=== PATIENT | male | born 1955 | race Hispanic/Latino ===

== ENCOUNTER 2017-07-17 18:33 | Inpatient (IN) | payer MEDICARE, OTHER ==
[2017-07-17 18:35] VITALS: PULSE 135
[2017-07-17 18:39] VITALS: BMI 24.9
--- NOTE | 2017-07-17 19:07 | ED PDOC ---
Arrival/HPI - General Chief Complaint: Weakness/Neurological Deficit Time Seen by Provider: 07/17/17 18:36 Historian: Family - History of Present Illness Narrative History of Present Illness (Text): 07/17/17 19:00 62 year old male, whose past medical history includes neuropathy, 3 strokes, is brought in by EMS and presents to the emergency department complaining of weakness. Per family, patient is experiencing difficulty ambulating for 2 days and has been "shaking a lot" as per pt family, pt had previous mrsa bacteremia and presented similarly in past. Patient has no complaints of pain. Also, patient has wound to left leg and had a cast placed on it 3 days ago. Baseline expressive aphasia No PMD 07/17/17 22:18 Symptom Onset: Gradual Symptom Course: Unchanged Past Medical History - Provider Review Nursing Documentation Reviewed: Yes - Infectious Disease Hx of Infectious Diseases: None - Tetanus Immunization Tetanus Immunization: Unknown - Cardiac Hx Cardiac Disorders: Yes Hx Hypertension: Yes Other/Comment: endocarditis, pig valve, open heart sx - Pulmonary Hx Respiratory Disorders: No Hx Pneumonia: Yes - Neurological Hx Neurological Disorder: Yes HX Cerebrovascular Accident: Yes (x3) - HEENT Hx HEENT Disorder: No - Renal Hx Renal Disorder: No - Endocrine/Metabolic Hx Endocrine Disorders: Yes Hx Diabetes Mellitus Type 2: Yes - Hematological/Oncological Hx Blood Disorders: No Hx Blood Transfusions: No Hx Blood Transfusion Reaction: No - Integumentary Hx Dermatological Disorder: No Other/Comment: diabetic foot infections - Musculoskeletal/Rheumatological Hx Musculoskeletal Disorders: Yes Hx Arthritis: Yes - Gastrointestinal Hx Gastrointestinal Disorders: Yes Hx Gastroesophageal Reflux: Yes - Genitourinary/Gynecological Hx Genitourinary Disorders: No Hx Reproductive Disorders: No - Psychiatric Hx Psychophysiologic Disorder: No Hx Emotional Abuse: No Hx Physical Abuse: No Hx Substance Use: No - Surgical History Hx Open Heart Surgery: Yes Hx Valve Replacement: Yes (pig valve) - Anesthesia Hx Anesthesia: Yes Hx Anesthesia Reactions: No Hx Malignant Hyperthermia: No - Suicidal Assessment Feels Threatened In Home Enviroment: No Family/Social History - Physician Review Nursing Documentation Reviewed: Yes Family/Social History: No Known Family HX Smoking Status: Former Smoker Hx Alcohol Use: No Hx Substance Use: No Hx Substance Use Treatment: No Allergies/Home Meds Allergies/Adverse Reactions: Allergies No Known Allergies Allergy (Verified 07/17/17 18:39) Home Medications: Home Meds Medication Instructions Recorded Confirmed Escitalopram [Lexapro] 20 mg PO DAILY 07/20/15 07/17/17 Metoprolol Tartrate [Lopressor] 25 mg PO BID 07/20/15 07/17/17 Tamsulosin HCl [Flomax] 0.4 mg PO HS 07/20/15 07/17/17 Aspirin [Adult Low Dose Aspirin EC] 81 mg PO HS 12/30/15 07/17/17 Linagliptin [Tradjenta] 5 mg PO DAILY 12/30/15 07/17/17 levETIRAcetam [Keppra] 500 mg PO BID 12/30/15 07/17/17 traZODone [Desyrel] 25 mg PO HS 12/30/15 07/17/17 Review of Systems - Physician Review All systems were reviewed & negative as marked: Yes - Review of Systems Constitutional: Other (weakness and difficulty ambulating). absent: Fevers Cardiovascular: absent: Chest Pain Gastrointestinal: absent: Abdominal Pain Physical Exam Vital Signs Reviewed: Yes Vital Signs Temp Pulse Resp BP Pulse Ox 07/17/17 23:40 66 18 167/86 H 95 07/17/17 22:40 62 18 160/77 H 99 07/17/17 21:15 67 16 146/67 98 07/17/17 18:44 98.0 F 67 18 129/73 98 Temperature: Afebrile Blood Pressure: Normal Pulse: Regular Respiratory Rate: Normal Appearance: Positive for: Well-Appearing Pain Distress: None Mental Status: Positive for: Alert and Oriented X 3 Medical Decision Making ED Course and Treatment: ro sepsis/intracranial/metabolic/infectious etilogy. 07/17/17 19:05 Impression: 62 year old male with weakness and difficulty ambulating. Plan: -- EKG -- Head CT -- Chest X-ray -- Labs -- Urinalysis -- Blood Culture -- Reassess and disposition Prior Visits: Notes and results from previous visits were reviewed. Patient was last seen in the emergency department on 12/30/2015 for right-sided foot ulcer, with erythema and discharge of wound. Patient was admitted. Progress Notes: 07/17/2017 21:[address] FINDINGS: Brain: Zyep-vh-[id number] atrophy. No intracranial hemorrhage. No mass. Moderate encephalomalacia within LEFT temporal occipital parietal region. Mild encephalomalacia within RIGHT occipital parietal region. Few scattered foci of decreased attenuation within periventricular/subcortical white matter. Probable chronic lacunar infarcts within cerebellum. No definite edema. Ventricles: No hydrocephalus. Bones/joints: No acute fracture. Soft tissues: Unremarkable. Vasculature: Atherosclerotic disease of intracranial arteries. Sinuses: Partial opacification of ethmoid sinuses. Scattered minimal mucosal thickening of remaining sinuses. RIGHT maxillary retention cyst. Mastoid air cells: Partial opacification of RIGHT mastoid. Orbits: Unremarkable as visualized. IMPRESSION: 1. Nonspecific white matter changes. Acute infarction may be CT occult within first 24 hours. If a focal deficit persists, consider followup CT or MRI for further evaluation. 2. Incidental/non-acute findings are described above. Dictator: Cesar Merida MD 07/17/17 22:19 pt reasseesed; discussed with dr mane's resident requests cast to be taken down , wound culture to be sent. empiric antibiotics ordered. spoke to bryan wallace covering dr vargas. accepts. - Lab Interpretations Microbiology Results: Microbiology Results 07/17/17 22:00 Foot - Left Gram Stain - Final 07/17/17 22:00 Foot - Left Wound Culture - Final Staphylococcus Aureus Streptococcus anginosus group 07/17/17 19:50 Blood Blood Culture - Preliminary NO GROWTH AFTER 48 HOURS 07/17/17 19:30 Blood Blood Culture - Preliminary NO GROWTH AFTER 48 HOURS Lab Results: 07/17/17 19:30 07/17/17 19:30 Lab Results 07/18/17 16:02: POC Glucose (mg/dL) 394 H 07/18/17 11:24: POC Glucose (mg/dL) 397 H 07/18/17 11:00: Total Creatine Kinase < 20 L 07/18/17 07:14: POC Glucose (mg/dL) 283 H 07/17/17 19:50: Urine Color Yellow, Urine Appearance Clear, Urine pH 6.0, Ur Specific [place] >= 1.030, Urine Protein >=300 H, Urine Glucose (UA) 500 H, Urine Ketones Negative, Urine Blood Small H, Urine Nitrate Negative, Urine Bilirubin Negative, Urine Urobilinogen 1.0 H, Ur Leukocyte Esterase Negative, Urine RBC 5 - 10, Urine WBC 0 - 2, Ur Epithelial Cells 0 - 2, Amorphous Sediment Few, Urine Bacteria Many, Coarse Granular Casts Trace H 07/17/17 19:38: POC Glucose (mg/dL) 302 H 07/17/17 19:30: Sodium 134, Potassium 3.9, Chloride 99, Carbon Dioxide 25, Anion Gap 14, BUN 21, Creatinine 1.1, Est GFR ( Amer) > 60, Est GFR (Non- Af Amer) > 60, Random Glucose 307 H* D, Calcium 8.8, Magnesium 1.6 L, Total Bilirubin 1.1, AST 17, ALT 21, Alkaline Phosphatase 89, Lactate Dehydrogenase 407, Total Creatine Kinase < 20 L, Troponin I 0.02 D, Total Protein 6.6, Albumin 3.5, Globulin 3.1, Albumin/Globulin Ratio 1.1 07/17/17 19:30: PT 12.0 H, INR 1.11 H, APTT 26.3 07/17/17 19:30: WBC 15.8 H D, RBC 4.08, Hgb 11.9 L, Hct 35.0 L, MCV 85.8, MCH 29.2, MCHC 34.0, RDW 12.6, Plt Count 163, MPV 10.9, Gran % 80.1 H, Lymph % (Auto ) 9.2 L, [place] % (Auto) 10.6 H, Eos % (Auto) 0.0 L, Baso % (Auto) 0.1, Gran # 12.67 H, Lymph # 1.5, [place] # 1.7 H, Eos # 0.0, Baso # 0.02 - RAD Interpretation Radiology Orders: 07/17/17 18:56 HEAD W/O CONTRAST [CT] Stat CHEST PORTABLE [RAD] Stat 07/18/17 10:45 LOWER EXT OTH THN JNT W/O LT [MRI] Stat - Medication Orders Current Medication Orders: Acetaminophen (Tylenol 325mg Tab) 650 mg PO Q4H PRN PRN Reason: Pain, Mild (1-3) Aspirin (Ecotrin) 81 mg PO DAILY [facility] Last Admin: 07/20/17 10:16 Dose: 81 mg Clonidine HCl (Catapres Tts1 0.1 Mg/24 Hr) 1 patch TD Q7D@1000 [facility] Stop: 07/20/17 22:57 Last Admin: 07/20/17 01:23 Dose: Not Given Non-Admin Reason: BP Parameters Not Met MAR Pulse and Blood Pressure Document 07/20/17 01:23 RR (Rec: 07/20/17 01:23 RR [id number]) Pulse Pulse Rate (60-90) 70 Blood Pressure Blood Pressure (100/60-150/90) 120/70 Escitalopram Oxalate (Lexapro) 20 mg PO DAILY [facility] Last Admin: 07/20/17 10:15 Dose: 20 mg Home Med (Home Med) 1 unit PO DAILY [facility] Last Admin: 07/20/17 10:17 Dose: Daptomycin 510 mg/ Sodium (Chloride) 100 mls @ 200 mls/hr IV Q24H [facility] Stop: 07/27/17 09:31 Last Admin: 07/20/17 10:13 Dose: 200 mls/hr eMAR Start Stop Document 07/20/17 10:13 SML (Rec: 07/20/17 10:14 SML [id number]) Intravenous Solution Start Date 07/20/17 Start Time 10:13 End Date 07/20/17 End time 10:43 Total Infusion Time 30 Meropenem 1g/NS 100mL IVPB (Meropenem 1g/Ns 100ml Ivpb) 1 gm in 100 mls @ 100 mls/hr IVPB Q8 [facility] PRN Reason: Protocol Stop: 07/27/17 09:47 Last Admin: 07/19/17 13:46 Dose: 100 mls/hr eMAR Start Stop Document 07/19/17 13:46 SML (Rec: 07/19/17 13:46 SML [id number]) Intravenous Solution Start Date 07/19/17 Start Time 13:46 End Date 07/19/17 End time 14:46 Total Infusion Time 60 Insulin Human Regular (Humulin R Med) 0 units SC ACHS [facility] PRN Reason: Protocol Last Admin: 07/19/17 16:25 Dose: 7 units MAR Blood Glucose Document 07/19/17 16:25 SML (Rec: 07/19/17 16:25 SML [id number]) Blood Glucose Finger Stick Blood Glucose (70-120) 334 Subcutaneous Administrations Document 07/19/17 16:25 SML (Rec: 07/19/17 16:25 SML [id number]) Injection Site MAR Injection Site Right Arm Charges for Administration # of Subcutaneous Administrations 1 Levetiracetam (Keppra) 500 mg PO BID [facility] Last Admin: 07/20/17 10:15 Dose: 500 mg Lisinopril (Zestril) 10 mg PO DAILY [facility] Last Admin: 07/20/17 10:16 Dose: 10 mg [facility] Pulse and Blood Pressure Document 07/20/17 10:16 SML (Rec: 07/20/17 10:16 SML [id number]) Pulse Pulse Rate (60-90) 72 Blood Pressure Blood Pressure (100/60-150/90) 137/65 Metoprolol Tartrate (Lopressor) 25 mg PO BRKDIN [facility] Last Admin: 07/20/17 05:38 Dose: Not Given Non-Admin Reason: Patient in OR/Vascular Ondansetron HCl (Zofran Inj) 4 mg IVP ONCE PRN PRN Reason: Nausea/Vomiting Oxycodone/Acetaminophen (Percocet 5/325 Mg Tab) 1 tab PO Q4H PRN PRN Reason: Pain, moderate (4-7) Stop: 07/22/17 18:36 Oxycodone/Acetaminophen (Percocet 5/325 Mg Tab) 2 tab PO Q4H PRN PRN Reason: Pain, severe (8-10) Stop: 07/22/17 18:36 Last Admin: 07/19/17 20:29 Dose: 2 tab [facility] Pain Assessment Document 07/19/17 20:29 RR (Rec: 07/19/17 20:47 RR [id number]) Pain Reassessment Is this a pain reassessment? No Sleep Is patient sleeping during reassessment? No Presence of Pain Presence of Pain Yes Pain Scale Used Pain Scale Used Numeric Location Left, Right or Bilateral Left Upper or Lower Lower Description Description Constant Intensity of Pain at present 8 Pain Behavior Moaning Guarding Facial Grimacing Alleviating Factors/Management Medication Techniques Alleviating Factors Medication Re-Assess: [facility] Pain Assessment Document 07/19/17 21:29 RR (Rec: 07/20/17 05:38 RR [id number]) Pain Reassessment Is this a pain reassessment? Yes Sleep Is patient sleeping during reassessment? Yes Pain Scale Used Pain Scale Used FLACC Pantoprazole Sodium (Protonix Ec Tab) 20 mg PO ACB [facility] Last Admin: 07/20/17 10:16 Dose: 20 mg Tamsulosin HCl (Flomax) 0.4 mg PO HS [facility] Last Admin: 07/18/17 21:39 Dose: 0.4 mg Trazodone HCl (Desyrel) 25 mg PO HS [facility] Last Admin: 07/18/17 21:39 Dose: 25 mg Discontinued Medications Hydromorphone HCl (Dilaudid) 0.5 mg IVP Q15M PRN PRN Reason: Pain, moderate (4-7) Stop: 07/19/17 20:34 Vancomycin HCl (Vancomycin 1gm) 1 gm in 250 mls @ 167 mls/hr IVPB STAT STA PRN Reason: Protocol Stop: 07/17/17 21:25 Last Admin: 07/17/17 21:31 Dose: 167 mls/hr eMAR Start Stop Document 07/17/17 21:31 YP (Rec: 07/17/17 21:31 YP [id number]) Intravenous Solution Start Date 07/17/17 Start Time 21:31 End Date 07/17/17 End time 23:01 Total Infusion Time 90 Piperacillin Sod/Tazobactam Sod (Zosyn 3.375 In Ns 100ml) 100 mls @ 200 mls/hr IVPB STAT STA PRN Reason: Protocol Stop: 07/17/17 20:25 Last Admin: 07/17/17 20:39 Dose: 200 mls/hr eMAR Start Stop Document 07/17/17 20:39 RONEL (Rec: 07/17/17 20:39 RONEL [id number]) Intravenous Solution Start Date 07/17/17 Start Time 20:39 End Date 07/17/17 End time 21:09 Total Infusion Time 30 Sodium Chloride (Sodium Chloride 0.9%) 1,000 mls @ 75 mls/hr IV .[id number] [facility] Stop: 07/19/17 20:46 Insulin Human Regular (Humulin R Low) 0 units SC ACHS [facility] Last Admin: 07/18/17 12:40 Dose: 5 units MAR Blood Glucose Document 07/18/17 12:40 GM (Rec: 07/18/17 12:41 GM [id number]) Blood Glucose Finger Stick Blood Glucose (70-120) 397 Subcutaneous Administrations Document 07/18/17 12:40 GM (Rec: 07/18/17 12:41 GM [id number]) Injection Site MAR Injection Site Right Arm Charges for Administration # of Subcutaneous Administrations 1 Insulin Human Regular (Humulin R) 5 units SC STAT ST[facility] Stop: 07/20/17 09:29 Last Admin: 07/20/17 09:42 Dose: 5 units MAR Blood Glucose Document 07/20/17 09:42 SML (Rec: 07/20/17 09:42 SML [id number]) Blood Glucose Finger Stick Blood Glucose (70-120) 279 Subcutaneous Administrations Document 07/20/17 09:42 SML (Rec: 07/20/17 09:42 SML [id number]) Injection Site MAR Injection Site Left Arm Charges for Administration # of Subcutaneous Administrations 1 Oxycodone/Acetaminophen (Percocet 5/325 Mg Tab) 1 tab PO Q6 PRN PRN Reason: Pain, moderate (4-7) Stop: 07/20/17 22:41 Last Admin: 07/18/17 21:39 Dose: 1 tab MAR Pain Assessment Document 07/18/17 21:39 BR (Rec: 07/18/17 21:39 BR [id number]) Pain Reassessment Is this a pain reassessment? No Sleep Is patient sleeping during reassessment? No Presence of Pain Presence of Pain Yes Disposition/Present on Arrival - Present on Arrival Any Indicators Present on Arrival: No History of DVT/PE: No History of Uncontrolled Diabetes: Yes Urinary Catheter: No History of Decub. Ulcer: No History Surgical Site Infection Following: None - Disposition Have Diagnosis and Disposition been Completed?: Yes Diagnosis: Weakness Disposition: HOSPITALIZED Disposition Time: 22:20 Patient Problems: Current Active Problems Problem Status Onset Weakness Acute Condition: FAIR
[2017-07-17 19:54] LABS: BASO # 0.02 K/mm3 (0.0-2.0); BASO % 0.1 % (0.0-3.0); GRAN # 12.67 (1.4-6.5); GRAN % 80.1 % (50.0-68.0); LYMPH # 1.5 (1.2-3.4); LYMPH % 9.2 % (22.0-35.0); MEAN CELL VOLUME 85.8 fl (80.0-105.0); MEAN CORPUSCULAR HEMOGLOBIN 29.2 pg (25.0-35.0); MEAN PLATELET VOLUME 10.9 fl (7.0-11.0); MONO # 1.7 (0.1-0.6); MONO % 10.6 % (1.0-6.0); RED CELL DISTRIBUTION WIDTH 12.6 % (11.5-14.5); WHITE BLOOD COUNT 15.8 10^3/ul (4.5-11.0)
[2017-07-17] MEDS ORDERED: Piperacillin/Tazobact 3.375 gm 100 ML IVPB STA (19:56)
[2017-07-17] MEDS ORDERED: Vancomycin 1gm in NS 250ml 1 GM/250 ML BAG IVPB STA (19:56)
[2017-07-17 20:02] LABS: INR 1.11 (0.93-1.08); PARTIAL THROMBOPLASTIN TIME 26.3 Seconds (23.7-30.8)
[2017-07-17 20:12] LABS: URINE APPEARANCE CLEAR (CLEAR); URINE BILIRUBIN NEGATIVE (NEGATIVE); URINE BLOOD SMALL (NEGATIVE); URINE COLOR YELLOW (YELLOW); URINE GLUCOSE (UA) 500 mg/dL (NEGATIVE); URINE KETONE NEGATIVE (NEGATIVE); URINE LEUKOCYTE ESTERASE NEGATIVE Leu/uL (NEGATIVE); URINE PROTEIN >=300 mg/dL (<30 mg/dL)
[2017-07-17 20:18] LABS: URINE AMORPHOUS SEDIMENT FEW; URINE BACTERIA MANY (NEG); URINE EPITHELIAL CELLS 0 - 2 /hpf (0-5); URINE WBC 0 - 2 /hpf (0-6)
[2017-07-17 20:47] LABS: ALB/GLOB RATIO 1.1 (1.1-1.8); ALKALINE PHOSPHATASE 89 U/L (38-126); ALT/SGPT 21 U/L (7-56); AST/SGOT 17 U/L (17-59); BILIRUBIN,TOTAL 1.1 mg/dL (0.2-1.3); BLOOD UREA NITROGEN 21 mg/dL (7-21); CALCIUM 8.8 mg/dL (8.4-10.5); CARBON DIOXIDE 25 mmol/L (21-33); CHLORIDE 99 mmol/L (98-107); GFR AFRICAN-AMERICAN > 60; MAGNESIUM 1.6 mg/dL (1.7-2.2); POTASSIUM 3.9 mmol/L (3.6-5.0); SODIUM 134 mmol/L (132-148); TOTAL PROTEIN 6.6 g/dL (5.8-8.3)
[2017-07-17 20:58] LABS: TROPONIN I 0.02 ng/mL
[2017-07-17 21:01] LABS: GLUCOSE,RANDOM 307 mg/dL (70-110)
--- NOTE | 2017-07-17 21:30 | CT ---
EXAM: CT Head Without Intravenous Contrast CLINICAL HISTORY: 62 years old, male; Signs and symptoms; Walking, difficulty and weakness, extremity and weakness, facial; Bilateral; Additional info: Weakness h/o of CVA TECHNIQUE: Axial computed tomography images of the head/brain without intravenous contrast. All CT scans at this facility use one or more dose reduction techniques, viz.: automated exposure control; ma/kV adjustment per patient size (including targeted exams where dose is matched to indication; i.e. head); or iterative reconstruction technique. COMPARISON: MR - BRAIN WITHOUT CONTRAST 10/24/2014 12:56:07 PM FINDINGS: Brain: [id number]-rq-[id number] atrophy. No intracranial hemorrhage. No mass. Moderate encephalomalacia within LEFT temporal occipital parietal region. Mild encephalomalacia within RIGHT occipital parietal region. Few scattered foci of decreased attenuation within periventricular/subcortical white matter. Probable chronic lacunar infarcts within cerebellum. No definite edema. Ventricles: No hydrocephalus. Bones/joints: No acute fracture. Soft tissues: Unremarkable. Vasculature: Atherosclerotic disease of intracranial arteries. Sinuses: Partial opacification of ethmoid sinuses. Scattered minimal mucosal thickening of remaining sinuses. RIGHT maxillary retention cyst. Mastoid air cells: Partial opacification of RIGHT mastoid. Orbits: Unremarkable as visualized. IMPRESSION: 1. Nonspecific white matter changes. Acute infarction may be CT occult within first 24 hours. If a focal deficit persists, consider followup CT or MRI for further evaluation. 2. Incidental/non-acute findings are described above.
[2017-07-17] MEDS ORDERED: Oxycodone/Acetaminophen 5/325 mg Tab PO PRN (22:40)
--- NOTE | 2017-07-18 08:05 | RAD ---
HISTORY: weakness COMPARISON: 01/06/2016 FINDINGS: LUNGS: No active pulmonary disease. PLEURA: No significant pleural effusion identified, no pneumothorax apparent. CARDIOVASCULAR: Normal. OSSEOUS STRUCTURES: No significant abnormalities. VISUALIZED UPPER ABDOMEN: Normal. OTHER FINDINGS: None. IMPRESSION: No active disease.
[2017-07-18] MEDS: Insulin Reg-LOW-Coverage SC SCH ×2 (09:20→12:40)
[2017-07-18] MEDS ORDERED: DAPTOmycin 500 mg Inj (Cubicin) IV SCH (09:30)
[2017-07-18] MEDS ORDERED: Barium Sulfate Susp 2.1% w/v, 2.0% w/w 450 mL Bottle PO ONE (09:56)
[2017-07-18] MEDS: Pantoprazole 20 mg EC Tab PO SCH (10:11)
[2017-07-18] MEDS: TRAJENTA 5 MG PO SCH (10:49)
[2017-07-18] MEDS: Meropenem 1g/NS 100mL IVPB 1 GM/100 ML PIGGYBACK IVPB SCH ×3 (11:22→21:40)
--- NOTE | 2017-07-18 11:45 | CARD ---
APPROVED REPORT EKG Measurement Heart [id number] MA 146P1 [id number] <Conclusion> Normal sinus rhythm Prolonged QT Abnormal ECG
[2017-07-18] MEDS: DAPTOmycin 510 MG in Sodium Chloride 0.9% 100 ML IV SCH (12:38)
--- NOTE | 2017-07-18 15:12 | MRI ---
PROCEDURE: MRI of the left foot without contrast HISTORY: LEFT FOOT ULCER COMPARISON: TECHNIQUE: MRI of the left foot was performed in multiple planes using multiple pulse sequences. FINDINGS: There is subcutaneous edema along the dorsum of the foot and around the ankle. This could represent passive edema or cellulitis. There is no marrow edema to suggest osteomyelitis. There is no focal abscess. IMPRESSION: No evidence of osteomyelitis
--- NOTE | 2017-07-18 17:47 | CON ---
LOCATION: The patient is seen earlier this morning in room 365, bed 2. CHIEF COMPLAINT: Chills and weakness from several days. 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 Berry, and the patient also with history of kidney failure, now is admitted with the patient complaining of weakness and chills. REVIEW OF SYSTEMS: Reveals no fevers documented. No abdominal pain. No diarrhea or constipation. No bright red blood per rectum. No melena. 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 PAST SURGICAL HISTORY: Significant for mitral valve replacement and [facility] by Dr. Berry. ALLERGIES: THE PATIENT HAS NO KNOWN ALLERGIES. MEDICATIONS AT HOME: Reveals the patient to be on trazodone, Keppra, Flomax, Protonix, metoprolol, insulin, aspirin, Lexapro. PHYSICAL EXAMINATION: GENERAL: The patient is in bed in no acute distress. VITAL SIGNS: Temperature of 98, heart rate of 66, respiratory rate of 18, blood pressure is 167/86. HEENT: Unremarkable. NECK: Supple. LUNGS: Have decreased breath sounds. HEART: Normal S1 and S2. ABDOMEN: Soft, nontender. No organomegaly. No rebound or guarding. No masses. ASSESSMENT AND PLAN: A 62-year-old male, hypertensive, diabetes, alcohol abuse, history of methicillin-resistant Staphylococcus aureus. The patient's review of cultures reveals the patient had methicillin-resistant Staphylococcus aureus in his right foot. Also had a Corynebacterium in his right foot. In the left foot, he had beta hemolytic Streptococcus, and the patient had methicillin-resistant Staphylococcus aureus in blood in 2014, and now presenting with leukocytosis, must rule out prosthetic valve endocarditis bacteremia versus gastrointestinal pathology. We will order daptomycin and meropenem, blood cultures, urine cultures, and CT of the abdomen. We will make further recommendation upon availability of initial results. Lino Freeman MD
[2017-07-18] MEDS: Insulin Reg-MEDIUM-Coverage SC SCH ×2 (17:50→22:07)
--- NOTE | 2017-07-18 21:49 | CON ---
SUBJECTIVE: A 62-year-old male, well known to the [facility] Wound Care team, seen at bedside for continued evaluation and management of a diabetic left foot ulceration. The patient was seen in the Wound Center last week and was placed in the total contact cast for his diabetic wound; however, he reported pain and was febrile, so his brought him into the emergency room. The cast was removed in the Emergency Department. PAST MEDICAL HISTORY: The patient's medical history is significant for longstanding insulin-dependent diabetes with peripheral neuropathy, numerous diabetic foot infections which went to osteomyelitis and amputations, gastroesophageal reflux, atrial fibrillation, and CVA. PAST SURGICAL HISTORY: Includes right great toe amputation, open heart surgery with a valve replacement. SOCIAL HISTORY: The patient is , is a former smoker, no alcohol abuse, no illicit drug use noted. ALLERGIES: THE PATIENT HAS NO KNOWN DRUG ALLERGIES. OBJECTIVE: VITAL SIGNS: The patient's vital signs revealed temperature of 97.8, pulse rate of 63, blood pressure of 150/75, respiratory rate of 20. EXTREMITIES: Weakly palpable pedal pulses noted bilaterally. Absent pedal hair growth noted bilaterally. The patient is unable to detect 5.07 g monofilament wire testing bilaterally. There is a full-thickness gangrenous ulceration on the left foot sub-metatarsal head #1. There is noted to be purulence. There is noted to be drainage. The wound does probe to bone. There is noted to be malodor. No signs of ascending cellulitis. ASSESSMENT: Diabetic left foot ulceration with probable osteomyelitis of the first metatarsal head. PLAN: The patient was seen at bedside. Incision and drainage was considered but we will order an MRI to rule out osteomyelitis and the patient will be scheduled tomorrow for an incision and drainage and pending MRI results possible metatarsal head resection of the left first metatarsal. We will keep the patient n.p.o. after breakfast tomorrow. In the meantime, the patient's wound will be cleansed with normal sterile saline and a dry sterile dressing will be applied. Culture was taken and submitted for sensitivities, awaiting microbiology report. Infectious Disease consult ordered. Dr. Freeman ordered meropenem and daptomycin empirically. We recommend vascular consult for lower extremity perfusion evaluation. The patient is scheduled for surgical intervention on Monday at 05:00 p.m. Josh Hurtado DPM
--- NOTE | 2017-07-19 04:47 | HP ---
HISTORY OF PRESENT ILLNESS: A 62-year-old white male with a history of insulin dependent diabetes mellitus, peripheral neuropathy, status post multiple foot surgeries and diabetic foot infections in the past, status post endocarditis of aortic valve, status post aortic valve replacement at [facility] by Dr. Mcdonald. The patient also had showered multiple bilateral septic emboli to his brain. He is recovering from traumatic brain septic emboli bilaterally. He has improved markedly. He is now more ambulatory, but does have some dysphasia. He has poor balance but good strength in the upper and lower extremities. Recently, he was found to have worsening left diabetic foot infections. He was put in the cast by Dr. Hurtado. He continued to progress with worsening infections of the left foot. He was admitted to the hospital with possible early sepsis, poor diabetic control, peripheral vascular disease, and a history of endocarditis. PHYSICAL EXAMINATION: GENERAL: Showed a well-developed, well-nourished white male with halting speech, somewhat slurred. EXTREMITIES: Normal strength in the upper and lower extremities. Decreased sensation in both lower extremities. Decreased pulses bilaterally. The patient is recently bandaged left foot from his infection, his wound is not exposed at this point. VITAL SIGNS: The patient's temperature is 100.4, blood pressure is 174/83. HEART: Regular sinus rhythm with systolic ejection murmur. CHEST: Clear to auscultation and percussion. LABORATORY DATA: White count is 15,800 with a left shift and hemoglobin is 11.9. Blood sugar is 307. IMPRESSION: Left diabetic foot infection, history of cerebrovascular accident, history of aortic valve replacement, and poorly-controlled diabetes mellitus. Hayden Gutierrez MD
[2017-07-19] MEDS: Meropenem 1g/NS 100mL IVPB 1 GM/100 ML PIGGYBACK IVPB SCH ×2 (06:08→13:46)
[2017-07-19 06:57] LABS: HEMATOCRIT 36.5 % (42.0-52.0); MEAN CELL VOLUME 86.1 fl (80.0-105.0); MEAN CORPUSCULAR HEMOGLOBIN 28.3 pg (25.0-35.0); MEAN CORPUSCULAR HGB CONC 32.9 g/dl (31.0-37.0); MEAN PLATELET VOLUME 11.2 fl (7.0-11.0); RED CELL DISTRIBUTION WIDTH 12.8 % (11.5-14.5); WHITE BLOOD COUNT 12.2 10^3/ul (4.5-11.0)
[2017-07-19 07:31] LABS: ALKALINE PHOSPHATASE 91 U/L (38-126); ALT/SGPT 26 U/L (7-56); AST/SGOT 24 U/L (17-59); BILIRUBIN,TOTAL 0.8 mg/dL (0.2-1.3); BLOOD UREA NITROGEN 17 mg/dL (7-21); CALCIUM 8.7 mg/dL (8.4-10.5); CARBON DIOXIDE 27 mmol/L (21-33); CHLORIDE 102 mmol/L (98-107); GFR AFRICAN-AMERICAN > 60; GLUCOSE,RANDOM 258 mg/dL (70-110); POTASSIUM 3.8 mmol/L (3.6-5.0); SODIUM 140 mmol/L (132-148); TOTAL PROTEIN 6.4 g/dL (5.8-8.3)
[2017-07-19] MEDS: Pantoprazole 20 mg EC Tab PO SCH (08:06)
[2017-07-19] MEDS: Insulin Reg-MEDIUM-Coverage SC SCH ×3 (08:07→16:25)
[2017-07-19] MEDS: DAPTOmycin 510 MG in Sodium Chloride 0.9% 100 ML IV SCH (09:12)
[2017-07-19] MEDS: TRAJENTA 5 MG PO SCH (09:57)
--- NOTE | 2017-07-19 11:57 | PN ---
DATE: SUBJECTIVE: The patient is a 62-year-old white male, recently admitted with left foot infection, history of poorly-controlled diabetes mellitus, peripheral neuropathy, history of CVA, aortic valve replacement for endocarditis, admitted to the hospital with elevated white count, diabetic foot infection and poorly-controlled diabetes mellitus. The patient Dr. Hurtado scheduled to do debridement and possible bone removal of the left foot. The patient is on IV antibiotics. He has had ID consult. Blood sugars will be controlled with insulin. The patient is stable as at this point, he is prepped for surgery and will be follows as postop. Hayden Gutierrez MD
[2017-07-19] MEDS ORDERED: Bupivacaine 0.5% Inj(30mL) ONE (16:46)
[2017-07-19] MEDS ORDERED: Lidocaine 1% Inj (20ml) ONE (16:46)
--- NOTE | 2017-07-19 17:16 | PN ---
DATE: 07/19/2017 SUBJECTIVE: The patient is in bed, in no acute distress, nontoxic. No fevers. OBJECTIVE: VITAL SIGNS: On exam, temperature is 98, blood pressure is 150/80, T-max is 100.4, respiratory rate of 16 and heart rate of 59. EXAMINATION OF HEENT: Unremarkable. NECK: Supple. LUNGS: Decreased breath sounds. HEART EXAM: Normal S1 and S2. ABDOMEN EXAMINATION: Soft and nontender. LABORATORY EXAMINATION: Reveals the patient has white count of 12,200; hemoglobin of 12 and platelets of 183. BUN of 17 and creatinine of 1.1. Urinalysis is noted. Microbiology reveals the left foot culture is Gram-positive cocci and the blood cultures are no growth. The patient had an MRI of the lower extremities which reveals no evidence of osteomyelitis and Dr. Gutierrez note is reviewed. ASSESSMENT AND PLAN: A 62-year-old male with hypertension, diabetes, alcohol abuse, history of methicillin-resistant Staphylococcus aureus and the patient had methicillin-resistant Staphylococcus aureus in the right foot, also had corynebacterium and had beta-hemolytic streptococcus and the patient in 2014 had methicillin-resistant Staphylococcus aureus in blood. 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 We will follow closely with you. He will most likely need further podiatric involvement. Lino Freeman MD
[2017-07-19] MEDS ORDERED: Propofol 10 mg/ml Inj (20 ML) ONE ×3 (17:19→17:30)
[2017-07-19] MEDS ORDERED: Lidocaine 2% Inj (20ml) ONE (17:19)
[2017-07-19] MEDS ORDERED: Midazolam 2 MG/2 ML VIAL ONE (17:25)
[2017-07-19] MEDS ORDERED: HYDROmorphone 0.5 mg/0.5 ml ISec IVP PRN (18:34)
[2017-07-19] MEDS ORDERED: Oxycodone/Acetaminophen 5/325 mg Tab PO PRN ×2 (18:35)
--- NOTE | 2017-07-19 18:42 | PCM.SURG1 ---
<Sandeep Jj - Last Filed: 07/19/17 18:38> Surgeon's Initial Post Op Note - Surgeon's Notes Surgeon: Dr. Josh Hurtado DPKarlos Geological Aide: Dr. Sandeep Jj DPM PGY-1 Type of Anesthesia: IV Sedation, Local Anesthesia Administered By: Dr. Jonh Flores MD Pre-Operative Diagnosis: severe left foot infection infection probe to 1st metatarsal bone Operative Findings: see dictation; vicryl 3-0, vicryl 4-0, nylon 3-0 Post-Operative Diagnosis: same Operation Performed: excisional debridement of gangrenous wound with incision and drainage and 1st metatarsal resection of left foot Specimen/Specimens Removed: bone and gangrenous nonviable tissue left foot Estimated Blood Loss: EBL {In ML}: 10 Blood Products Given: N/A Drains Used: No Drains Post-Op Condition: Good Date of Surgery/Procedure: 07/19/17 Time of Surgery/Procedure: 18:00 <Josh Hurtado - Last Filed: 07/20/17 07:30> Attending/Attestation - Attestation I have personally seen and examined this patient.: Yes I have fully participated in the care of the patient.: Yes I have reviewed all pertinent clinical information: Yes
[2017-07-19] MEDS ORDERED: Sodium Chloride 0.9% 1,000 ML IV SCH (18:45)
--- NOTE | 2017-07-20 06:11 | OP ---
PROCEDURE DATE: 07/19/2017 PREOPERATIVE DIAGNOSIS: Severe left foot infection, which probed to first metatarsal bone. POSTOPERATIVE DIAGNOSIS: Severe left foot infection, which probed to first metatarsal bone. NAME OF PROCEDURE: Excision and debridement of gangrenous wound with incision and drainage and first metatarsal head resection of left foot. SURGEON: Josh Hurtado DPM TORPEDO SHOOTER: Sandeep Jj DPM, PGY-1 TYPE OF ANESTHESIA: IV sedation with location. ANESTHESIOLOGIST: Jack Flores MD INDICATIONS: The patient is a 62-year-old male with above diagnosis. The patient has exhausted all conservative treatment at this time and now requests surgical intervention. The patient signed the consent after careful explanation of risks, benefits, complications, and alternatives for surgical procedure. No guarantees were given nor implied. N.p.o. status was confirmed prior to taking the patient to the OR. PREPARATION: The patient was brought into the operating room and placed on the operating room table in a supine position. A time-out was performed for the identification to correct the patient and procedure. The patient received a total of 20 mL of 1:1 mixture of 1% lidocaine plain and 0.5% Marcaine plain in a Segovia-block fashion to the left foot. Once anesthesia was achieved, the left foot was then prepped and draped in a normal saline manner and the procedure began. DESCRIPTION OF PROCEDURE: Attention was directed to the patient's left foot plantarly at the first metatarsal head where the gangrenous ulceration measuring approximately 3.5 cm x 4 cm x 0.4 cm is located. The wound base is necrotic and gangrenous, extremely malodorous with purulent drainage noted. Wound probes the bone. Erythema noted to the entire left foot. Utilizing a 15 blade and pickup, the ulceration was excisionally debrided of all nonviable and necrotic tissues to the level of the healthy bleeding tissue. Using a dissecting scissor, the ulceration was further excisionally divided of all nonviable and necrotic tissue to the level of healthy bleeding tissue. All nonviable and devitalized tissues were then passed from the operated site to be sent to Pathology. During this time, utilizing the dissecting scissor it was noted that the plantar wound probes to bone and the tunnel was connecting dorsally to the first MPJ and the first MTP. This was noted during the time that the wound tunneled circumferentially to surround soft tissue. About 3 mL of odorous purulent drainage noted coming from observation site during this time. Attention was then directed to the dorsal aspect of the first metatarsal joint of the left foot, utilizing a fresh 15 blade, a linear and longitudinal incision was made medially and parallel to the tendon of the extensor hallucis longus measuring approximately 5 cm in length. The incision was deepened through the subcutaneous tissue with care being taken to identify and retract all viable neurovascular structures. Next utilizing a 15 blade, all periosteum tissue was carefully resected off the first metatarsal head and distal shaft. At this time, utilizing a sagittal saw and a pickup, the first metatarsal head was resected from a dorsal distally to plantar proximally fashion. The resected first metatarsal head fragment was then passed from the operating site to be sent to Pathology. The entire wound was then pulse lavaged, flushed with copious amounts of sterile normal saline. Next, a deep wound culture was taken. Attention was then directed to the plantar incision where the proximal flexor hallucis longus tendon is identified and reapproximated distally to surrounding soft tissue utilizing a 4-0 Vicryl in a simple suture technique. Attention was then directed to the dorsal aspect of the first MPJ of the left foot, where subcutaneous tissue was then reapproximated with 3-0 Vicryl. Next, 3-0 nylon was used to reapproximate the skin and coapt the skin with the horizontal mattress technique. The dorsal surgical site was dressed with Adaptic, 4 x 4 gauze, ABD. The plantar ulceration was packed with iodoform 1-inch packing, 4 x 4 gauze, ABD, Kerlix, and light Coban. The patient's left lower extremity was placed in the dependent position for 2 minutes. Normal pink color resumed to the patient's left foot and digit. POSTOPERATIVE CONDITION: The patient tolerated the anesthesia and procedure well and was escorted to the recovery room with vital signs stable and neurovascular status intact to the left foot. Podiatry will continue to follow the patient while the patient is in-house. Sandeep Jj DPM Josh Hurtado DPM MTDJuventino
[2017-07-20 06:37] LABS: HEMATOCRIT 38.6 % (42.0-52.0); MEAN CELL VOLUME 87.5 fl (80.0-105.0); MEAN CORPUSCULAR HEMOGLOBIN 27.9 pg (25.0-35.0); MEAN CORPUSCULAR HGB CONC 31.9 g/dl (31.0-37.0); RED CELL DISTRIBUTION WIDTH 12.8 % (11.5-14.5); WHITE BLOOD COUNT 14.6 10^3/ul (4.5-11.0)
[2017-07-20 07:00] LABS: ALKALINE PHOSPHATASE 103 U/L (38-126); ALT/SGPT 35 U/L (7-56); AST/SGOT 29 U/L (17-59); BILIRUBIN,TOTAL 1.2 mg/dL (0.2-1.3); BLOOD UREA NITROGEN 18 mg/dL (7-21); CALCIUM 9.1 mg/dL (8.4-10.5); CARBON DIOXIDE 25 mmol/L (21-33); CHLORIDE 104 mmol/L (95-110); GFR AFRICAN-AMERICAN > 60; GLUCOSE,RANDOM 249 mg/dL (70-110); POTASSIUM 4.4 mmol/L (3.6-5.0); SODIUM 141 mmol/L (132-148); TOTAL PROTEIN 6.9 g/dL (5.8-8.3)
--- NOTE | 2017-07-20 07:56 | RAD ---
PROCEDURE: Left Foot Radiographs. HISTORY: s/p left foot surgery COMPARISON: 01/07/2016 FINDINGS: BONES: Grossly technically limited examination. Status post amputation mid 1st metatarsal. No acute fracture. No true AP view submitted. No definite osseous erosion or periosteal reaction. Cutaneous wound over the plantar aspect of the medial right foot. JOINTS: Normal. SOFT TISSUES: As above OTHER FINDINGS: None. IMPRESSION: Amputation 1st digit mid 1st metatarsal. Limited examination. Cutaneous wound/ulceration. No plain radiographic evidence of osteomyelitis.
[2017-07-20] MEDS ORDERED: Insulin Regular 1 UNITS/0.01 ML ML SC STA (09:28)
--- NOTE | 2017-07-20 10:10 | PQF GENQUE ---
This form is a permanent part of the medical record Dr. Hurtado, Chart reflects patient was admitted with "severe diabetic foot ulcer and infection". Documentation notes that wound probes to bone with probable osteomyelitis of 1st metatarsal head. Both x-ray left foot and MRI left foot note no evidence of osteomyelitis. Please clarify if osteomyelitis was present, ruled out, undetermined for accuracy and coding purposes. Clarification of your documentation is requested to better reflect the severity of illness and intensity of treatment of your patient. Indicators present [] Specify: [] There was noted to be exposed first metatarsal head bone at the underlying gagrenous diabetic left foot ulceration which is clinically correlated to a high specificity for positive osteomyelitis even though MRI and x-ray findings are negative- there is a lag time present for detecting early acute osteomyelitis and radiographic technology [] Specify: [] [] Specify: [] [] Specify: [] Location in the medical record that reflects the above clinical findings: [] Treatment Provided: [] PHYSICIAN'S RESPONSE Based on your medical judgment of the clinical indicators outlined above please clarify the following: [] Practitioner response [] If unable to determine, please check the box, sign and date. Present On Admission (POA) Indicator: [] Present at the time of admission [] Not present at the time of admission [] Clinically Undetermined In responding to this query, please exercise your independent professional judgment. The fact that a question is asked does not imply that any particular answer is desired or expected. Thank you for your clarification on this documentation. If you have any questions please call:[ ] * Thank you, [ ] [id number] (please call if you have any questions regarding this query or process for answering). vein access technician CHACHA
[2017-07-20] MEDS: DAPTOmycin 510 MG in Sodium Chloride 0.9% 100 ML IV SCH (10:13)
[2017-07-20] MEDS: Pantoprazole 20 mg EC Tab PO SCH (10:16)
[2017-07-20] MEDS: TRAJENTA 5 MG PO SCH (10:17)
[2017-07-20] MEDS: Insulin Reg-MEDIUM-Coverage SC SCH ×3 (11:38→22:42)
[2017-07-20] MEDS: Meropenem 1g/NS 100mL IVPB 1 GM/100 ML PIGGYBACK IVPB SCH (13:20)
[2017-07-20] MEDS ORDERED: Meropenem 1g/NS 100mL IVPB 1 GM/100 ML PIGGYBACK IVPB SCH (14:00)
--- NOTE | 2017-07-20 19:06 | PN ---
SUBJECTIVE: The patient is in bed, in no acute distress, nontoxic. PHYSICAL EXAMINATION: VITAL SIGNS: Temperature of 99, blood pressure is 130/60, respiratory rate of 20. HEENT: Unremarkable. NECK: Supple. LUNGS: Have decreased breath sounds. HEART: Normal S1 and S2. ABDOMEN: Soft and nontender. No organomegaly. No rebound. No guarding. LABORATORY DATA: Reveals the patient's cultures of the foot is Staphylococcus aureus and Streptococcus sanguis. Blood cultures, there are no growth. The patient had surgery yesterday, incision and drainage of an abscess of the foot and resection of metatarsal. Examination of the foot appears . Review of Dr. Hurtado's note, the patient with probably osteomyelitis of first metatarsal head, and the MRI was read as negative for osteomyelitis. The operative note is also probed to the first metatarsal bone on operative note. ASSESSMENT AND PLAN: A 62-year-old male with history of diabetes, hypertension, alcohol abuse, history of methicillin-resistant Staphylococcus aureus, history of Corynebacterium of the foot infection, and beta hemolytic strep. The patient also had CDC group G Corynebacterium endocarditis and mitral valve replacement and currently on daptomycin and meropenem. We will discontinue the daptomycin. The patient is on sensitive Staphylococcus aureus coverage and Streptococcus on the meropenem, maybe able to use ceftriaxone. The MRI states no osteomyelitis; however, the operative notes states it probes the bone. We will have to clarify if there is osteo or not from radiology versus Dr. Hurtado's progress note. Currently, we will treat his osteo. For now, we will discontinue daptomycin and meropenem, and use ceftriaxone 2 g upon review of the MRI with radiology and podiatry. Lino Freeman MD
--- NOTE | 2017-07-20 20:30 | PN ---
SUBJECTIVE: A 62-year-old male, seen at bedside, status post day #1 left first metatarsal head resection secondary to a full-thickness gangrenous, fulminating diabetic left foot ulceration. The patient is resting comfortably in bed and states that he has intermittent pain in his left foot. OBJECTIVE: VITAL SIGNS: Reveal a temperature of 98.7, pulse rate of 70, blood pressure of 123/72, respiratory rate of 18. EXTREMITIES: Good palpable pedal pulses noted bilaterally. Absent pedal hair growth noted bilaterally. The patient is unable to detect 5.07 g monofilament wire testing bilaterally. There is noted to be a large full-thickness ulceration that was surgically debrided yesterday, sub-metatarsal #1. The wound shows no purulent drainage. There is no malodor. There is heavy serosanguineous drainage. The incision site taken on the dorsal aspect of the foot shows no signs of dehiscence, all sutures are well coapted. The entire forefoot is edematous; however, there is no sign of ascending cellulitis. DIAGNOSTIC STUDIES: Laboratory findings reveal a white count of 14.6, hemoglobin of 12.3, hematocrit of 38.6, platelet count of 217. Microbiology report taken on 07/17 reveals Staphylococcus aureus and Streptococcus anginosus growth. Culture taken in OR is pending as well as pathology report pending. Postoperative x-ray reveals amputation of the distal first left metatarsal. No radiographic evidence of gas gangrene or necrotizing fasciitis. X-ray and MRI showed no evidence of osteomyelitis; however, there was exposed metatarsal head bone at the plantar aspect of the left foot which is indicative of osteomyelitis. ASSESSMENT: Status post A1 incision and drainage of gangrenous diabetic left foot ulceration with resection of the distal first metatarsal. PLAN: The patient's wound was examined. Area was flushed with normal sterile saline. Application of a dry sterile dressing was applied. At this point, the patient has a full-thickness wound on the plantar aspect of his foot. He is to be off weightbearing at all times until further notice. His white count is 14. We will continue with IV antibiotics as per Infectious Disease. The patient's hallux presents with a dusky appearance; however, his capillary filling time is present but delayed. At this point, we will wait to see if his hallux becomes ischemic and possible hallux amputation cannot be ruled out at this time. The patient will be seen and followed daily. Josh Hurtado DPM
--- NOTE | 2017-07-21 00:51 | PN ---
DATE: SUBJECTIVE: The patient is a 62-year-old white male with insulin-dependent diabetes mellitus, peripheral vascular disease, diabetic neuropathy, diabetic foot infection left, status post surgery by Dr. Hurtado for removal of bone of the left foot. The patient is on IV antibiotics. PHYSICAL EXAMINATION: GENERAL: He is afebrile. VITAL SIGNS: Stable. EXTREMITIES: He is status post surgery. NEUROLOGIC: He is awake, alert, and oriented x3. ASSESSMENT AND PLAN: He has had a history of bilateral cerebrovascular accident secondary to septic emboli from endocarditis. The patient is stable. Hayden Gutierrez MD
[2017-07-21 06:25] LABS: HEMATOCRIT 33.6 % (42.0-52.0); MEAN CELL VOLUME 86.4 fl (80.0-105.0); MEAN CORPUSCULAR HEMOGLOBIN 28.5 pg (25.0-35.0); MEAN PLATELET VOLUME 10.8 fl (7.0-11.0); RED CELL DISTRIBUTION WIDTH 12.7 % (11.5-14.5)
[2017-07-21 06:47] LABS: ALKALINE PHOSPHATASE 91 U/L (38-126); ALT/SGPT 33 U/L (7-56); AST/SGOT 27 U/L (17-59); BILIRUBIN,TOTAL 0.8 mg/dL (0.2-1.3); BLOOD UREA NITROGEN 19 mg/dL (7-21); CALCIUM 8.6 mg/dL (8.4-10.5); CARBON DIOXIDE 26 mmol/L (21-33); CHLORIDE 102 mmol/L (95-110); GFR AFRICAN-AMERICAN > 60; GLUCOSE,RANDOM 262 mg/dL (70-110); SODIUM 137 mmol/L (132-148); TOTAL PROTEIN 6.1 g/dL (5.8-8.3)
[2017-07-21] MEDS: Insulin Reg-MEDIUM-Coverage SC SCH ×4 (08:42→21:18)
[2017-07-21] MEDS: Pantoprazole 20 mg EC Tab PO SCH (08:42)
[2017-07-21] MEDS: cefTRIAXone 2 GM IN NS 2 GM/100 ML BAG IVPB SCH (09:08)
--- NOTE | 2017-07-21 10:01 | PN ---
SUBJECTIVE: A 62-year-old white male, admitted to the hospital with left diabetic foot infection, history of insulin-dependent diabetes mellitus, poorly controlled; peripheral neuropathy, bilateral CVA from endocarditis several years ago. The patient was admitted with elevated white count, low-grade fever, infected left foot. The patient was taken to surgery by Dr. Hurtado yesterday. His postop day #1, doing well. His wound is clean and dry. PHYSICAL EXAMINATION: GENERAL: He is afebrile. VITAL SIGNS: Stable. He has a temperature of 99.1, blood pressure 155/84. MEDICATIONS: He is on IV antibiotics. PLAN: Case will be discussed with Dr. Hurtado for possible discharge versus continue IV antibiotics. Hayden Gutierrez MD
[2017-07-21] MEDS: TRAJENTA 5 MG PO SCH (10:10)
--- NOTE | 2017-07-21 12:22 | PN ---
DATE: 07/21/2017 SUBJECTIVE: The patient is in bed, in no acute distress, and nontoxic. He is comfortably seen early this morning. OBJECTIVE: VITAL SIGNS: Temperature is 99, blood pressure is 150/80, respiratory rate is 20, and heart rate of 66. HEENT: Unremarkable. NECK: Supple. LUNGS: Decreased breath sounds. HEART: Normal S1 and S2. ABDOMEN: Soft and nontender. No organomegaly. No rebound. LABORATORY DATA: Reveals a white count of 12,000, hemoglobin of 11, and platelets of 214. Chemistries are noted with a BUN of 19 and creatinine of 1.0. Urinalysis is noted. Microbiology reveals the blood cultures are no growth. Foot culture is Staph aureus and Strep sanguinis and Staph aureus is pansensitive Staph and anaerobic cultures are pending. CURRENT MEDICATIONS: Currently reveals the patient to be on ceftriaxone [address] Gutierrez's note is reviewed. Dr. Hurtado's note is reviewed. Review of the orders reveals the pathology report is pending. ASSESSMENT AND PLAN: A 62-year-old male with a history of diabetes, hypertension, alcohol abuse, history of methicillin-resistant Staphylococcus aureus, history of corynebacterium, foot infection, and beta-hemolytic streptococcus infection and history of CDC group G corynebacterium, and endocarditis of the mitral valve, status post mitral valve replacement. The patient had a central nervous system emboli was done at [facility] by Dr. Berry, now the patient was admitted with a temperature of 100.4 and a white count of 15,800 with an infected foot with sepsis with Staphylococcus aureus and strep cellulitis. MRI was negative for osteomyelitis as a questionable clinical osteomyelitis per Dr. Hurtado; however, the patient had an excision and debridement of the gangrenous and resection of the incision and drainage of the metatarsophalangeal resection of the left foot. I would not place a PICC line empirically on this patient since the patient has a prosthetic valve and risk of developing prosthetic valve endocarditis. We would check on the pathology, if the pathology is consistent with osteomyelitis then we are forced to treat as osteomyelitis using a PICC line in antibiotics that he is currently on it, which is Rocephin 2 g daily x4 weeks. If the pathology report is negative, may switch to p.o. Augmentin 875 p.o. b.i.d. x7-10 days. Awaiting for foot pathology, bone biopsy to determine if there is osteomyelitis prior to placing a PICC line. Lino Freeman MD [facility] # [id number]
--- NOTE | 2017-07-21 17:17 | PN ---
SUBJECTIVE: A 62-year-old male seen at bedside status post A1 left first metatarsal head resection secondary to infected fulminating diabetic left foot ulceration with infection. The patient is resting comfortably and is no longer experiencing any intermittent pain. PHYSICAL EXAMINATION: VITAL SIGNS: Revealed temperature of 99.1, pulse rate of 66, blood pressure 155/84, respiratory rate of 20. LABORATORY FINDINGS: Revealed white count of 12, hemoglobin of 11.1, hematocrit of 33.6, platelet count of 214. Microbiology report taken in the operating room shows no organisms. Culture and anaerobes shows no organisms preliminarily. OBJECTIVE: Palpable pedal pulses noted bilaterally. The patient is unable to detect 5.07 g monofilament wire testing bilaterally. Dorsal aspect of the left foot presents with the incision site well coapted. No signs of dehiscence, all sutures are intact. Plantar aspect of the left foot presents with a large full thickness ulceration. There is noted to be serosanguineous drainage. There is no malodor. There is no purulence emanating from the wound. However, the entire first digit remains edematous, erythematous and dusky in appearance. ASSESSMENT: Status post resection of the left first metatarsal head secondary to gangrenous diabetic ulceration with infection. PLAN: The patient's wound was examined, the wound was flushed with normal sterile saline and application of Maxorb silver and a fluffy dry sterile dressing was applied. The patient is to be off weightbearing at all times until further notice. His white count has fallen from 14 to 12 and is trending downward. We will continue with IV antibiotics as per infectious disease. We will continue to monitor his white blood cell count until it falls within normal limits and continue to monitor his left hallux for signs of impending ischemia. Once his white count is stabilized and if he does not require further digital amputation, he can be transferred to TCU. We are waiting operating room culture results for determination of whether oral or IV long-term antibiotics are needed. The patient will be seen and followed daily. Josh Hurtado DPM
--- NOTE | 2017-07-21 17:46 | CP.PCM.PCO ---
Physician Communication Note - Physician Communication Note Physician Communication Note: SBP 200-218,HR 64, awaiting Dr Gutierrez response , gave [id number] [id number]
[2017-07-21] MEDS ORDERED: POLYETHYLENE GLYCOL 3350 17 GM/Dose PACKET PO ONE (18:07)
[2017-07-22 07:16] LABS: HEMATOCRIT 34.6 % (42.0-52.0); MEAN CELL VOLUME 85.4 fl (80.0-105.0); MEAN CORPUSCULAR HEMOGLOBIN 28.6 pg (25.0-35.0); MEAN CORPUSCULAR HGB CONC 33.5 g/dl (31.0-37.0); MEAN PLATELET VOLUME 10.2 fl (7.0-11.0); RED CELL DISTRIBUTION WIDTH 12.5 % (11.5-14.5)
[2017-07-22 07:50] LABS: ALB/GLOB RATIO 0.9 (1.1-1.8); ALKALINE PHOSPHATASE 87 U/L (38-126); ALT/SGPT 44 U/L (7-56); AST/SGOT 42 U/L (17-59); BILIRUBIN,TOTAL 0.6 mg/dL (0.2-1.3); BLOOD UREA NITROGEN 17 mg/dL (7-21); CALCIUM 8.9 mg/dL (8.4-10.5); CARBON DIOXIDE 32 mmol/L (21-33); CHLORIDE 100 mmol/L (98-107); GFR AFRICAN-AMERICAN > 60; GLUCOSE,RANDOM 248 mg/dL (70-110); POTASSIUM 4.1 mmol/L (3.6-5.0); SODIUM 139 mmol/L (132-148); TOTAL PROTEIN 6.4 g/dL (5.8-8.3)
[2017-07-22] MEDS: Pantoprazole 20 mg EC Tab PO SCH (07:55)
[2017-07-22] MEDS: Insulin Reg-MEDIUM-Coverage SC SCH ×4 (07:56→22:24)
[2017-07-22] MEDS: POLYETHYLENE GLYCOL 3350 17 GM/Dose PACKET PO SCH (09:44)
[2017-07-22] MEDS: cefTRIAXone 2 GM IN NS 2 GM/100 ML BAG IVPB SCH (09:44)
[2017-07-22] MEDS: TRAJENTA 5 MG PO SCH (09:46)
--- NOTE | 2017-07-22 10:39 | PN ---
DATE: 07/22/2017 SUBJECTIVE: The patient is in bed, in no acute distress, and nontoxic. There are no fevers. No chills. OBJECTIVE: VITAL SIGNS: Temperature is 98, blood pressure is , respiratory rate 20, and heart rate of 62. HEENT: Unremarkable. NECK: Supple. LUNGS: Decreased breath sounds. HEART: Normal S1 and S2. ABDOMEN: Soft. LABORATORY DATA: Reveals a white count of 10,000, hemoglobin of 11, and platelets of 228. Chemistry reveals a BUN of 17 and creatinine of 1.0. Urinalysis is noted. Microbiology reveals the Staph aureus and Strep sanguinis in left foot culture. The blood cultures are no growth. Review of orders reveals the patient to be on ceftriaxone and pathology report is still pending. Dr. Gutierrez's communication report is reviewed and Dr. Hurtado's note is reviewed. ASSESSMENT AND PLAN: This is a 62-year-old, history of diabetes, hypertension, alcohol abuse, history of methicillin-resistant Staphylococcus aureus, history of corynebacterium, foot infection, and beta-hemolytic streptococcal infection. The patient had a history of CDC group G corynebacterium, mitral valve endocarditis with central nervous system emboli, and was transferred to [facility], mitral valve replacement by Dr. Berry, admitted now with a fever of 100.4 and white count of 15,000 and sepsis with a strep and Staphylococcus aureus cellulitis. The MRI is negative for osteo; however, Dr. Hurtado's physical examination states may have been osteo, awaiting for the pathology. The patient had incision and drainage and metatarsophalangeal resection of the left foot and we will determine based on pathology. May hesitant in putting a central line in or a PICC line, the patient with a bioprosthetic valve it is absolutely necessary. Lino Freeman MD
--- NOTE | 2017-07-22 13:47 | PN ---
SUBJECTIVE: A 62-year-old white male, status post diabetic foot infection, status post surgery by Dr. Hurtado. Wound is clean and dry. The patient is doing well. White count has dropped to 10,000. He is afebrile. VITAL SIGNS: Stable. PLAN: To get a new IV antibiotics to clear any residual infection. Start some physical therapy and occupational therapy, and eventually into wound care. The patient is examined. He is awake. He has no complaints. Blood pressure has been mildly elevated. His medications were adjusted. His lisinopril was elevated from 10 to 20 and amlodipine was added. Blood pressure 169/84 today. Blood sugar is 248. We will also add Lantus 25 mg b.i.d to his insulin coverage stating his white count has dropped to 10. Physical examination is unchanged. The patient is doing well. His wound is clean and dry. Hayden Gutierrez MD
--- NOTE | 2017-07-22 16:47 | PN ---
DATE: SUBJECTIVE: A 62-year-old male seen at bedside status post left first metatarsal head resection secondary to infected fulminating diabetic left foot ulceration with infection. The patient is resting comfortably and no longer reports any pain. He has been afebrile. OBJECTIVE: VITAL SIGNS: Today are 98 degrees Fahrenheit temperature, pulse rate of 62, blood pressure of 169/87, respiratory rate of 20. EXTREMITIES: Palpable pedal pulses noted bilaterally. The color of his left hallux is returning to within normal limits and is no longer ischemic in nature. The dorsalis aspect of the left foot presents with this incision site well coapted; however, he does have a large golf ball sized ulceration on the plantar aspect of his first metatarsophalangeal joint where his gangrene is culminating. Ulceration was debrided and his metatarsal head was resected. There is noted to be serous drainage only. There is no malodor. There is no purulence emanating from the wound. The entire forefoot is edematous and erythematous; however, there are no signs of ascending cellulitis. LABORATORY DATA: The patient's laboratory findings reveal white count of 10, down from 12 yesterday, hemoglobin of 11.6, hematocrit of 34.6, platelet count of 228 and his ESR is pending. The patient's Gram stain and wound culture from the OR after washout reveals no polymorphonuclear white blood cells and no organisms seen. ASSESSMENT: Status post resection of the first metatarsal head secondary to severe gangrenous diabetic ulceration with infection. PLAN: The patient's wound was examined. The wound was washed with normal sterile saline and application of Maxorb silver and a dry sterile fluffy dressing was applied. We will continue to keep the patient off weightbearing at all times until further notice; however, once he is strong enough within the next day or two, I would recommend him walking with the forefoot offloading shoe under Physical Therapy supervision. His white count has returned to within normal limits. However, he is left with an enlarged ulceration that will require months of offloading and aggressive local wound care to resolve. We will continue with IV antibiotics as per infectious disease. The patient will be seen and followed daily. Josh Hurtado DPM
[2017-07-22] MEDS: Insulin Detemir 100 units/ml Vial (Levemir) SC SCH (22:27)
[2017-07-23] MEDS: Insulin Reg-MEDIUM-Coverage SC SCH ×4 (08:03→21:38)
[2017-07-23] MEDS: Pantoprazole 20 mg EC Tab PO SCH (08:04)
[2017-07-23] MEDS: Insulin Detemir 100 units/ml Vial (Levemir) SC SCH ×2 (08:06→21:41)
--- NOTE | 2017-07-23 09:27 | PN ---
SUBJECTIVE: The patient is a 62-year-old white male status post surgery on the left foot for a diabetic foot infection. 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 The patient is doing well. PHYSICAL EXAMINATION: VITAL SIGNS: Stable. His blood pressure is slightly improved down to 116/94. LABORATORY DATA: Blood sugars are 248 today. White count is normal at 10.0; hemoglobin is 11.6. The patient is without complaints; tolerating his diet well. Blood sugar is 206 this morning and blood sugar last night was 356. The patient will continue to have adjustments in his Lantus. Vital signs showed a stable blood pressure. We will continue to make adjustments to his blood pressure medication. Otherwise, the patient is stable without complaints. PLAN: To continue IV antibiotics and discussed with Dr. Hurtado about discharge possibly in the next 24 hours. Continue physical therapy and occupational therapy. Hayden Gutierrez MD
[2017-07-23] MEDS: POLYETHYLENE GLYCOL 3350 17 GM/Dose PACKET PO SCH ×2 (10:08→10:15)
[2017-07-23] MEDS: cefTRIAXone 2 GM IN NS 2 GM/100 ML BAG IVPB SCH (10:08)
--- NOTE | 2017-07-23 12:01 | CP.PCM.PN ---
<AlfonzoLoriraissacj - Last Filed: 07/23/17 11:54> Subjective - Date & Time of Evaluation Date of Evaluation: 07/23/17 Time of Evaluation: 11:54 - Subjective Subjective: 62 y/o male seen and evaluated at bedside 2 days s/p excisional debridement of gangrenous wound with incision and drainage and 1st metatarsal resection of left foot. Patient appears to be resting comfortably in his bed and is in NAD. Patient is AAOx3. Patient denies of any acute overnight events and denies of any pain to his left foot. Patient denies of any F/N/V/C/SOB/chest pain now. Patient denies of any other pedal complains at this time. Objective - Vital Signs/Intake and Output Vital Signs (last 24 hours): Temp Pulse Resp BP Pulse Ox 98.7 F 64 20 160/94 H 97 07/23/17 06:00 07/23/17 10:08 07/23/17 06:00 07/23/17 10:08 07/23/17 06:00 Intake and Output: 07/23/17 07/23/17 06:59 18:59 Intake Total 420 360 Output Total 600 150 Balance -180 210 - Medications Medications: Current Medications Acetaminophen (Tylenol 325mg Tab) 650 mg PO Q4H PRN PRN Reason: Pain, Mild (1-3) Amlodipine Besylate (Norvasc) 5 mg PO DAILY [facility] Last Admin: 07/23/17 10:08 Dose: 5 mg Aspirin (Ecotrin) 81 mg PO DAILY [facility] [place] Last Admin: 07/23/17 10:08 Dose: 81 mg Escitalopram Oxalate (Lexapro) 20 mg PO DAILY [facility] [place] Last Admin: 07/23/17 10:08 Dose: 20 mg Home Med (Home Med) 1 unit PO DAILY [facility] [place] Last Admin: 07/22/17 09:46 Dose: Not Given Ceftriaxone Sodium (Rocephin 2 Gm Ivpb) 2 gm in 100 mls @ 100 mls/hr IVPB DAILY [facility] [place] PRN Reason: Protocol Stop: 08/04/17 10:01 Last Admin: 07/23/17 10:08 Dose: 100 mls/hr Insulin Detemir (Levemir) 30 unit SC [facility] Insulin Human Regular (Humulin R Med) 0 units SC [facility] PRN Reason: Protocol Last Admin: 07/23/17 08:03 Dose: 3 units Levetiracetam (Keppra) 500 mg PO BID [facility] [place] Last Admin: 07/23/17 10:08 Dose: 500 mg Lisinopril (Zestril) 20 mg PO DAILY [facility] [place] Last Admin: 07/23/17 10:08 Dose: 20 mg Metoprolol Tartrate (Lopressor) 50 mg PO BRKDIN [facility] [place] Ondansetron HCl (Zofran Inj) 4 mg IVP ONCE PRN PRN Reason: Nausea/Vomiting Pantoprazole Sodium (Protonix Ec Tab) 20 mg PO ACB [facility] [place] Last Admin: 07/23/17 08:04 Dose: 20 mg Polyethylene Glycol (Miralax) 17 gm PO DAILY [facility] [place] Last Admin: 07/23/17 10:15 Dose: Not Given Tamsulosin HCl (Flomax) 0.4 mg PO HS [facility] [place] Last Admin: 07/22/17 22:24 Dose: 0.4 mg Trazodone HCl (Desyrel) 25 mg PO HS [facility] [place] Last Admin: 07/22/17 22:24 Dose: 25 mg - Labs Labs: 07/22/17 06:30 07/22/17 06:30 PT 12.0 Seconds (9.9-11.8) H 07/17/17 19:30 INR 1.11 (0.93-1.08) H 07/17/17 19:30 APTT 26.3 Seconds (23.7-30.8) 07/17/17 19:30 - Constitutional Appears: Well, Non-toxic, No Acute Distress - Extremities Exam Additional comments: Left foot focused exam: VASC: DP/PT pulses are palpable, Cap Refill time: < 4 sec to all digits, Temp gradient: warm to cool from proximal to distal, mild non-pitting edema noted on the distal foot DERM: surgical sutures are intact on dorsum of the left foot, wound measuring approximately 2.0 cm x 2.0 cm x 0.3 cm on the plantar aspect at the level of 1st metatarsal head noted which appears granular in nature with no active drainage, no active malodor, no purulence, no fluctunce, minimal surrounding erythema, no clinical suspicion of active infection NEURO: Protective sensation is grossly diminished ORTHO: no pain on palpation of the surgical site - Neurological Exam Neurological Exam: Alert, Awake, Oriented x3 - Psychiatric Exam Psychiatric exam: Normal Affect, Normal Mood Assessment and Plan - Assessment and Plan (Free Text) Assessment: 62 y/o male seen and evaluated at bedside 2 days s/p excisional debridement of gangrenous wound with incision and drainage and 1st metatarsal resection of left foot Plan: Patient seen and evaluated at bedside Patient discussed in details with attending Dr. Hurtado Labs and vitals reviewed (Afebrile, WBC @ 10.0 trending down) Wound cleaned using sterile saline and dressing applied using maxorb, DSD, ABD, kerlix and light milagro Continue with IV abx as per ID Wound care daily by podiatry Podiatry to follow patient while patient remains in house <Josh Hurtado - Last Filed: 07/24/17 10:15> Objective - Vital Signs/Intake and Output Vital Signs (last 24 hours): Temp Pulse Resp BP Pulse Ox 97.5 F L 60 18 155/80 H 95 07/24/17 06:00 07/24/17 08:34 07/24/17 06:00 07/24/17 08:34 07/24/17 06:00 Intake and Output: 07/24/17 07/24/17 06:59 18:59 Intake Total 540 Output Total 500 Balance 40 - Medications Medications: Current Medications Acetaminophen (Tylenol 325mg Tab) 650 mg PO Q4H PRN PRN Reason: Pain, Mild (1-3) Amlodipine Besylate (Norvasc) 5 mg PO DAILY [facility] [place] Last Admin: 07/23/17 10:08 Dose: 5 mg Aspirin (Ecotrin) 81 mg PO DAILY [facility] [place] Last Admin: 07/23/17 10:08 Dose: 81 mg Escitalopram Oxalate (Lexapro) 20 mg PO DAILY [facility] Last Admin: 07/23/17 10:08 Dose: 20 mg Home Med (Home Med) 1 unit PO DAILY [facility] [place] Last Admin: 07/23/17 15:30 Dose: Not Given Ceftriaxone Sodium (Rocephin 2 Gm Ivpb) 2 gm in 100 mls @ 100 mls/hr IVPB DAILY [facility] [place] PRN Reason: Protocol Stop: 08/04/17 10:01 Last Admin: 07/23/17 10:08 Dose: 100 mls/hr Insulin Detemir (Levemir) 30 unit SC ACB[facility] Last Admin: 07/24/17 08:33 Dose: 30 unit Insulin Human Regular (Humulin R Med) 0 units SC [facility] PRN Reason: Protocol Last Admin: 07/24/17 08:22 Dose: 1 units Levetiracetam (Keppra) 500 mg PO BID [facility] [place] Last Admin: 07/23/17 17:05 Dose: 500 mg Lisinopril (Zestril) 20 mg PO DAILY [facility] [place] Last Admin: 07/23/17 10:08 Dose: 20 mg Metoprolol Tartrate (Lopressor) 50 mg PO BRKDIN [facility] [place] Last Admin: 07/24/17 08:34 Dose: 50 mg Ondansetron HCl (Zofran Inj) 4 mg IVP ONCE PRN PRN Reason: Nausea/Vomiting Pantoprazole Sodium (Protonix Ec Tab) 20 mg PO ACB [facility] [place] Last Admin: 07/24/17 08:35 Dose: 20 mg Polyethylene Glycol (Miralax) 17 gm PO DAILY [facility] [place] Last Admin: 07/23/17 10:15 Dose: Not Given Tamsulosin HCl (Flomax) 0.4 mg PO HS [facility] [place] Last Admin: 07/23/17 21:38 Dose: 0.4 mg Trazodone HCl (Desyrel) 25 mg PO HS [facility] [place] Last Admin: 07/23/17 21:37 Dose: 25 mg - Labs Labs: 07/22/17 06:30 07/22/17 06:30 PT 12.0 Seconds (9.9-11.8) H 07/17/17 19:30 INR 1.11 (0.93-1.08) H 07/17/17 19:30 APTT 26.3 Seconds (23.7-30.8) 07/17/17 19:30 Attending/Attestation - Attestation I have personally seen and examined this patient.: Yes I have fully participated in the care of the patient.: Yes I have reviewed all pertinent clinical information, including history, physical exam and plan: Yes
[2017-07-23] MEDS: TRAJENTA 5 MG PO SCH (15:30)
--- NOTE | 2017-07-23 15:39 | PN ---
DATE: 07/23/2017 SUBJECTIVE: The patient is seen early this morning. He is doing well. Awake and alert and wants to be discharged. PHYSICAL EXAMINATION: VITAL SIGNS: Temperature is 98, blood pressure is 160/90, respiratory rate of 20. HEENT: Unremarkable. NECK: Supple. LUNGS: Have decreased breath sounds. HEART: Normal S1, S2. ABDOMEN: Soft, nontender. LABORATORY DATA: Reveals a white count of 10,000, hemoglobin of 11, platelets of 228. Chemistries reveals a BUN of 17, creatinine of 1.0 and microbiology reveals the patient has a Staphylococcus aureus and Streptococcus sanguinis group. 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 Berry. On this admission, the patient had a fever and white count, admitted with sepsis with strep and Staphylococcus aureus cellulitis. The MRI of the foot was negative for osteomyelitis. However, clinically Dr. Hurtado's physical examination demonstrates it to be osteomyelitis and status post incision and drainage and metatarsophalangeal resection of the left foot. Currently, the patient is on IV ceftriaxone and awaiting for the pathology from the OR. If the pathology is negative for osteomyelitis, we will switch to p.o. antibiotics, I am hesitant to empirically put a PICC line in a patient with a bioprosthetic valve unless it is absolutely necessary if the pathology is positive then we will have to treat his osteo. We will follow closely with you. Lino Freeman MD
[2017-07-24] MEDS: Insulin Reg-MEDIUM-Coverage SC SCH ×3 (08:22→16:56)
[2017-07-24] MEDS: Insulin Detemir 100 units/ml Vial (Levemir) SC SCH (08:33)
[2017-07-24] MEDS: Pantoprazole 20 mg EC Tab PO SCH (08:35)
[2017-07-24] MEDS: cefTRIAXone 2 GM IN NS 2 GM/100 ML BAG IVPB SCH (10:12)
[2017-07-24] MEDS: POLYETHYLENE GLYCOL 3350 17 GM/Dose PACKET PO SCH (10:13)
--- NOTE | 2017-07-24 10:20 | PQF SEPSIS ---
This form is a permanent part of the medical record Dr. Gutierrez, Your H&P noted possible early sepsis but not mentioned in your subsequent notes. Could you clarify if sepsis was present on admission or ruled out? Clarification of your documentation is requested to better reflect the severity of illness and intensity of treatment of your patient. Indicators present [] Temp < 96.8 or > 100.4 [] WBC count > 12,000/mm3 or <000/mm3 or 10% immature neutrophils [] Heart Rate > 90 [] Respiratory Rate > 20 [] Fever or hypothermia [] Chills [] Positive blood cultures [] Hypotension [] Metabolic acidosis (Elevated lactate level, anion gap or reduced blood pH) [x] Acute confusion /Altered Mental Status [] Shock [] Other: [] Location in the medical record that reflects the above clinical findings: [] Treatment Provided: [x] PHYSICIAN'S RESPONSE Based on your medical judgment of the clinical indicators outlined above, are you treating this patient for a known or suspected: [] Sepsis / Septicemia Please specify organism if known [] [] SIRS (Systemic Inflammatory Response Syndrome) [] Severe Sepsis (Sepsis with Associated Organ Dysfunction) [] Fever of Unknown Origin [] Other, please indicate: [] [x] If Unable to Determine, please check the box, sign and date. Present On Admission (POA) Indicator: [] Present at the time of admission [] Not present at the time of admission [x] Clinically Undetermined In responding to this query, please exercise your independent professional judgment. The fact that a question is asked does not imply that any particular answer is desired or expected. Thank you for your clarification on this documentation. If you have any questions please call:[ ] * Thank you, [ ]Mauro Diallo [facility] #[id number] local area network administrator CHACHA
--- NOTE | 2017-07-24 11:45 | CP.PCM.PN ---
<Sandeep Jj - Last Filed: 07/24/17 11:26> Subjective - Date & Time of Evaluation Date of Evaluation: 07/24/17 Time of Evaluation: 11:26 - Subjective Subjective: Podiatry progress note for Dr. Hurtado- 62 y/o male seen and evaluated at bedside 4 days s/p excisional debridement of gangrenous wound with incision and drainage and 1st metatarsal resection of left foot. Patient appears to be resting comfortably in his bed and is in NAD. Patient is AAOx3. Patient denies of any acute overnight events and denies of any pain to his left foot. Patient denies of any F/N/V/C/SOB/chest pain now. Patient denies of any other pedal complains at this time. Objective - Vital Signs/Intake and Output Vital Signs (last 24 hours): Temp Pulse Resp BP Pulse Ox 97.5 F L 54 L 18 120/72 95 07/24/17 06:00 07/24/17 10:11 07/24/17 06:00 07/24/17 10:11 07/24/17 06:00 Intake and Output: 07/24/17 07/24/17 06:59 18:59 Intake Total 540 Output Total 500 Balance 40 - Medications Medications: Current Medications Acetaminophen (Tylenol 325mg Tab) 650 mg PO Q4H PRN PRN Reason: Pain, Mild (1-3) Amlodipine Besylate (Norvasc) 5 mg PO DAILY [facility] Last Admin: 07/24/17 10:09 Dose: 5 mg Aspirin (Ecotrin) 81 mg PO DAILY [facility] Last Admin: 07/24/17 10:11 Dose: 81 mg Escitalopram Oxalate (Lexapro) 20 mg PO DAILY [facility] Last Admin: 07/24/17 11:20 Dose: 20 mg Home Med (Home Med) 1 unit PO DAILY [facility] Last Admin: 07/23/17 15:30 Dose: Not Given Ceftriaxone Sodium (Rocephin 2 Gm Ivpb) 2 gm in 100 mls @ 100 mls/hr IVPB DAILY [facility] PRN Reason: Protocol Stop: 08/04/17 10:01 Last Admin: 07/24/17 10:12 Dose: 100 mls/hr Insulin Detemir (Levemir) 30 unit SC ACBHS [facility] Last Admin: 07/24/17 08:33 Dose: 30 unit Insulin Human Regular (Humulin R Med) 0 units SC ACHS [facility] PRN Reason: Protocol Last Admin: 07/24/17 08:22 Dose: 1 units Levetiracetam (Keppra) 500 mg PO BID [facility] Last Admin: 07/24/17 10:10 Dose: 500 mg Lisinopril (Zestril) 20 mg PO DAILY [facility] Last Admin: 07/24/17 10:11 Dose: 20 mg Metoprolol Tartrate (Lopressor) 50 mg PO BRKDIN [facility] Last Admin: 07/24/17 08:34 Dose: 50 mg Ondansetron HCl (Zofran Inj) 4 mg IVP ONCE PRN PRN Reason: Nausea/Vomiting Pantoprazole Sodium (Protonix Ec Tab) 20 mg PO ACB [facility] Last Admin: 07/24/17 08:35 Dose: 20 mg Polyethylene Glycol (Miralax) 17 gm PO DAILY [facility] Last Admin: 07/24/17 10:13 Dose: 17 gm Tamsulosin HCl (Flomax) 0.4 mg PO HS [facility] Last Admin: 07/23/17 21:38 Dose: 0.4 mg Trazodone HCl (Desyrel) 25 mg PO HS [facility] Last Admin: 07/23/17 21:37 Dose: 25 mg - Labs Labs: 07/22/17 06:30 07/22/17 06:30 PT 12.0 Seconds (9.9-11.8) H 07/17/17 19:30 INR 1.11 (0.93-1.08) H 07/17/17 19:30 APTT 26.3 Seconds (23.7-30.8) 07/17/17 19:30 - Constitutional Appears: Well, Non-toxic, No Acute Distress - Extremities Exam Additional comments: Left foot focused exam: VASC: DP/PT pulses are palpable, Cap Refill time: < 4 sec to all digits, Temp gradient: warm to cool from proximal to distal, mild non-pitting edema noted on the distal foot DERM: surgical incision located dorsum of the left foot with sutures intact, skin co-apted with no dehiscence noted; plantar wound measuring approximately 2.0 cm x 2.0 cm with deep deficit on the plantar aspect at the level of 1st metatarsal head noted; wound base appears mix fibrous and granular in nature with no active drainage at the moment, no active malodor, no purulence, no fluctunce, minimal surrounding erythema, skin color has to the left hallux has returned WNL NEURO: Protective sensation is grossly diminished ORTHO: no pain on palpation of the surgical site or plantar wound - Neurological Exam Neurological Exam: Alert, Awake, Oriented x3 - Psychiatric Exam Psychiatric exam: Normal Affect, Normal Mood Assessment and Plan - Assessment and Plan (Free Text) Assessment: 62 y/o male seen and evaluated at bedside 4 days s/p excisional debridement of gangrenous wound with incision and drainage and 1st metatarsal resection of left foot Plan: Patient seen and evaluated at bedside Patient discussed in details with attending Dr. Hurtado Labs and vitals reviewed (Afebrile, WBC @ 10.0 on 07/22/17) Wound cleaned using sterile saline and dressing applied using maxorb, DSD, ABD, kerlix and light milagro Will put adaptic on surgical incision tomorrow with dressing change Continue with IV abx as per ID Wound care daily by podiatry Podiatry to follow patient while patient remains in house <Josh Hurtado - Last Filed: 07/24/17 15:04> Objective - Vital Signs/Intake and Output Vital Signs (last 24 hours): Temp Pulse Resp BP Pulse Ox 97.5 F L 54 L 18 120/72 95 07/24/17 06:00 07/24/17 10:11 07/24/17 06:00 07/24/17 10:11 07/24/17 06:00 Intake and Output: 07/24/17 07/24/17 06:59 18:59 Intake Total 540 Output Total 500 Balance 40 - Medications Medications: Current Medications Acetaminophen (Tylenol 325mg Tab) 650 mg PO Q4H PRN PRN Reason: Pain, Mild (1-3) Amlodipine Besylate (Norvasc) 5 mg PO DAILY [facility] Last Admin: 07/24/17 10:09 Dose: 5 mg Aspirin (Ecotrin) 81 mg PO DAILY [facility] Last Admin: 07/24/17 10:11 Dose: 81 mg Escitalopram Oxalate (Lexapro) 20 mg PO DAILY [facility] Last Admin: 07/24/17 11:20 Dose: 20 mg Home Med (Home Med) 1 unit PO DAILY [facility] Last Admin: 07/24/17 12:34 Dose: Not Given Ceftriaxone Sodium (Rocephin 2 Gm Ivpb) 2 gm in 100 mls @ 100 mls/hr IVPB DAILY [facility] PRN Reason: Protocol Stop: 08/04/17 10:01 Last Admin: 07/24/17 10:12 Dose: 100 mls/hr Insulin Detemir (Levemir) 30 unit SC ACBHS [facility] Last Admin: 07/24/17 08:33 Dose: 30 unit Insulin Human Regular (Humulin R Med) 0 units SC [facility] PRN Reason: Protocol Last Admin: 07/24/17 12:15 Dose: 1 units Levetiracetam (Keppra) 500 mg PO BID [facility] Last Admin: 07/24/17 10:10 Dose: 500 mg Lisinopril (Zestril) 20 mg PO DAILY [facility] Last Admin: 07/24/17 10:11 Dose: 20 mg Metoprolol Tartrate (Lopressor) 50 mg PO BRKDIN [facility] Last Admin: 07/24/17 08:34 Dose: 50 mg Ondansetron HCl (Zofran Inj) 4 mg IVP ONCE PRN PRN Reason: Nausea/Vomiting Pantoprazole Sodium (Protonix Ec Tab) 20 mg PO ACB [facility] Last Admin: 07/24/17 08:35 Dose: 20 mg Polyethylene Glycol (Miralax) 17 gm PO DAILY [facility] Last Admin: 07/24/17 10:13 Dose: 17 gm Tamsulosin HCl (Flomax) 0.4 mg PO HS [facility] Last Admin: 07/23/17 21:38 Dose: 0.4 mg Trazodone HCl (Desyrel) 25 mg PO HS [facility] Last Admin: 07/23/17 21:37 Dose: 25 mg - Labs Labs: 07/24/17 12:40 07/24/17 12:40 PT 12.0 Seconds (9.9-11.8) H 07/17/17 19:30 INR 1.11 (0.93-1.08) H 07/17/17 19:30 APTT 26.3 Seconds (23.7-30.8) 07/17/17 19:30 Attending/Attestation - Attestation I have personally seen and examined this patient.: Yes I have fully participated in the care of the patient.: Yes I have reviewed all pertinent clinical information, including history, physical exam and plan: Yes
[2017-07-24] MEDS: TRAJENTA 5 MG PO SCH (12:34)
[2017-07-24 12:48] LABS: HEMATOCRIT 35.1 % (42.0-52.0); MEAN CELL VOLUME 85.8 fl (80.0-105.0); MEAN CORPUSCULAR HEMOGLOBIN 28.6 pg (25.0-35.0); MEAN CORPUSCULAR HGB CONC 33.3 g/dl (31.0-37.0); MEAN PLATELET VOLUME 10.2 fl (7.0-11.0); RED CELL DISTRIBUTION WIDTH 12.4 % (11.5-14.5); WHITE BLOOD COUNT 8.7 10^3/ul (4.5-11.0)
[2017-07-24 12:57] LABS: ALB/GLOB RATIO 0.9 (1.1-1.8); ALKALINE PHOSPHATASE 98 U/L (38-126); ALT/SGPT 58 U/L (7-56); AST/SGOT 51 U/L (17-59); BILIRUBIN,TOTAL 0.4 mg/dL (0.2-1.3); BLOOD UREA NITROGEN 20 mg/dL (7-21); CARBON DIOXIDE 32 mmol/L (21-33); CHLORIDE 99 mmol/L (98-107); GFR AFRICAN-AMERICAN > 60; GLUCOSE,RANDOM 182 mg/dL (70-110); POTASSIUM 4.6 mmol/L (3.6-5.0); SODIUM 139 mmol/L (132-148)
--- NOTE | 2017-07-24 13:33 | PN ---
A 62-year-old white male, diabetic left foot infection, status post surgery. The patient is doing well. Vital signs are stable. The patient is afebrile. Blood pressure is trending down to 155/80. Blood sugar is 178 today, we have increased his dose of insulin . We also increased his blood pressure medication. He is doing better without complaints. His wounds are clean and dry. Case will be discussed with Dr. Hurtado for possible discharge in the near future. Hayden Gutierrez MD
[2017-07-24 17:30] VITALS: BP 160/84; PULSE 68
--- NOTE | 2017-07-24 18:51 | CP.PCM.PN ---
Subjective - Date & Time of Evaluation Date of Evaluation: 07/24/17 Time of Evaluation: 12:25 - Subjective Subjective: Comfortable, afebrile. Objective - Vital Signs/Intake and Output Vital Signs (last 24 hours): Temp Pulse Resp BP Pulse Ox 97.5 F L 54 L 18 120/72 95 07/24/17 06:00 07/24/17 10:11 07/24/17 06:00 07/24/17 10:11 07/24/17 06:00 Intake and Output: 07/24/17 07/24/17 06:59 18:59 Intake Total 540 Output Total 500 Balance 40 - Medications Medications: Current Medications Acetaminophen (Tylenol 325mg Tab) 650 mg PO Q4H PRN PRN Reason: Pain, Mild (1-3) Amlodipine Besylate (Norvasc) 5 mg PO DAILY [facility] Last Admin: 07/24/17 10:09 Dose: 5 mg Aspirin (Ecotrin) 81 mg PO DAILY [facility] Last Admin: 07/24/17 10:11 Dose: 81 mg Escitalopram Oxalate (Lexapro) 20 mg PO DAILY [facility] Last Admin: 07/23/17 10:08 Dose: 20 mg Home Med (Home Med) 1 unit PO DAILY [facility] Last Admin: 07/23/17 15:30 Dose: Not Given Ceftriaxone Sodium (Rocephin 2 Gm Ivpb) 2 gm in 100 mls @ 100 mls/hr IVPB DAILY [facility] PRN Reason: Protocol Stop: 08/04/17 10:01 Last Admin: 07/24/17 10:12 Dose: 100 mls/hr Insulin Detemir (Levemir) 30 unit SC [facility] Last Admin: 07/24/17 08:33 Dose: 30 unit Insulin Human Regular (Humulin R Med) 0 units SC [facility] PRN Reason: Protocol Last Admin: 07/24/17 08:22 Dose: 1 units Levetiracetam (Keppra) 500 mg PO BID [facility] Last Admin: 07/24/17 10:10 Dose: 500 mg Lisinopril (Zestril) 20 mg PO DAILY [facility] Last Admin: 07/24/17 10:11 Dose: 20 mg Metoprolol Tartrate (Lopressor) 50 mg PO BRKDIN [facility] Last Admin: 07/24/17 08:34 Dose: 50 mg Ondansetron HCl (Zofran Inj) 4 mg IVP ONCE PRN PRN Reason: Nausea/Vomiting Pantoprazole Sodium (Protonix Ec Tab) 20 mg PO ACB [facility] Last Admin: 07/24/17 08:35 Dose: 20 mg Polyethylene Glycol (Miralax) 17 gm PO DAILY [facility] Last Admin: 07/24/17 10:13 Dose: 17 gm Tamsulosin HCl (Flomax) 0.4 mg PO HS [facility] Last Admin: 07/23/17 21:38 Dose: 0.4 mg Trazodone HCl (Desyrel) 25 mg PO HS [facility] Last Admin: 07/23/17 21:37 Dose: 25 mg - Labs Labs: 07/22/17 06:30 07/22/17 06:30 PT 12.0 Seconds (9.9-11.8) H 07/17/17 19:30 INR 1.11 (0.93-1.08) H 07/17/17 19:30 APTT 26.3 Seconds (23.7-30.8) 07/17/17 19:30 - Constitutional Appears: Non-toxic, No Acute Distress - Head Exam Head Exam: NORMAL INSPECTION - ENT Exam ENT Exam: Mucous Membranes Moist - Neck Exam Neck Exam: absent: Meningismus - Respiratory Exam Respiratory Exam: Decreased Breath Sounds - Cardiovascular Exam Cardiovascular Exam: +S1, +S2 - GI/Abdominal Exam GI & Abdominal Exam: Soft. absent: Tenderness Assessment and Plan - Assessment and Plan (Free Text) Plan: Assessment sepsis due to left foot infection/ cellulitis with MSSA and Strep anginosus S/P I and D and metatarsal resection history of MRSA bacteremia with infection of the right lower extremity with probable osteomyelitis S/P tenotomy History of Corynebacterium, Grp G strep bacteremia and mitral valve endocarditis S/P valve surgery and replacement ESBL Klebsiella in the urine DM HTN history of alcohol abuse Plan Continue Rocephin - as discussed with Dr. Hurtado, pathology of bone shows osteomyelitis but margins are clear - MRI did not show osteomyelitis as well - need 7 more days of Rocephin will monitor clinically
[2017-07-24 20:07] VITALS: O2SAT 98
[2017-07-24 20:08] VITALS: RESP 20; TEMP 98.9
--- NOTE | 2017-07-26 00:26 | DS ---
SUMMARY: The patient is a 62-year-old white male who was admitted on 07/17/2017 and discharged to TCU on 07/23/2017. The patient was admitted with elevated fever, elevated white count and diabetic ischemic left foot infection. The patient was . He was taken to surgery by Dr. Hurtado and the patient did well postop and progressed with physical therapy and occupational therapy; remains afebrile and then she was able to be discharged to TCU to continue IV antibiotics. DISCHARGE DIAGNOSES: The left diabetic foot infection, insulin-dependent diabetes mellitus, peripheral neuropathy, history of bilateral cerebrovascular accident. Hayden Gutierrez MD
== END 2017-07-24 20:16 | DRG 464 ==
LOC: ED 18:33 → ERH 22:16 → 3RNO 07-18 00:50 → OBSVTOIN 07-18 16:08
PROVIDERS: ADMIT Internal Medicine; ATTEND Internal Medicine
PROC: 0QTP0ZZ Resection of Left Metatarsal, Open Approach (ICD-10-PCS; 2017-07-19)
PROC: 0Y9N0ZZ Drainage of Left Foot, Open Approach (ICD-10-PCS; 2017-07-19)
PROC: 0JBR0ZZ Excision of Left Foot Subcutaneous Tissue and Fascia, Open Approach (ICD-10-PCS; principal; 2017-07-19 17:00)
DX: M86.172 Other acute osteomyelitis, left ankle and foot (principal); I76 Septic arterial embolism; E11.52 Type 2 diabetes mellitus with diabetic peripheral angiopathy with gangrene; L03.116 Cellulitis of left lower limb; E11.42 Type 2 diabetes mellitus with diabetic polyneuropathy; I48.91 Unspecified atrial fibrillation; E11.621 Type 2 diabetes mellitus with foot ulcer; L97.524 Non-pressure chronic ulcer of other part of left foot with necrosis of bone; E11.69 Type 2 diabetes mellitus with other specified complication; E11.65 Type 2 diabetes mellitus with hyperglycemia; A49.01 Methicillin susceptible Staphylococcus aureus infection, unspecified site; B95.5 Unspecified streptococcus as the cause of diseases classified elsewhere; I10 Essential (primary) hypertension; K21.9 Gastro-esophageal reflux disease without esophagitis; I05.9 Rheumatic mitral valve disease, unspecified; Z95.3 Presence of xenogenic heart valve; Z79.4 Long term (current) use of insulin; Z86.73 Personal history of transient ischemic attack (TIA), and cerebral infarction without residual deficits; Z79.82 Long term (current) use of aspirin; Z87.891 Personal history of nicotine dependence; Z86.14 Personal history of Methicillin resistant Staphylococcus aureus infection

== ENCOUNTER 2017-07-24 20:20 | Inpatient (IN) | payer OTHER ==
[2017-07-24] MEDS: Insulin Detemir 100 units/ml Vial (Levemir) SC SCH (22:58)
[2017-07-24] MEDS: Insulin Reg-MEDIUM-Coverage SC SCH (23:04)
[2017-07-25] MEDS: Insulin Detemir 100 units/ml Vial (Levemir) SC SCH ×2 (06:51→22:14)
[2017-07-25] MEDS: Insulin Reg-MEDIUM-Coverage SC SCH ×4 (06:51→21:54)
[2017-07-25] MEDS: Pantoprazole 20 mg EC Tab PO SCH (08:45)
[2017-07-25] MEDS ORDERED: cefTRIAXone 2 GM IN NS 2 GM/100 ML BAG IVPB SCH (10:00)
[2017-07-25] MEDS: POLYETHYLENE GLYCOL 3350 17 GM/Dose PACKET PO SCH (12:03)
--- NOTE | 2017-07-25 12:45 | CP.PCM.CON ---
History of Present Illness - History of Present Illness History of Present Illness: 62 year old male with PMH of MRSA bacteremia with infection of the right lower extremity with probable osteomyelitis S/P tenotomy, history of Corynebacterium, Grp G strep bacteremia and mitral valve endocarditis S/P valve surgery and replacement, ESBL Klebsiella in the urine, DM, HTN, history of alcohol abuse was initially admitted to [facility] because of foot infection of the left with osteomyelitis and he underwent metatarsal amputation. Bone margins are clear. He is now transferred to [facility] for continued medical therapy and physical rehab. Infectious Diseases consult is requested to continue his antibiotics. Currently he is comfortable on a chair, not in distress, afebrile, no chest pain, no SOB, no cough or colds, no headache or dizziness, no abdominal pain, no diarrhea, no dysuria, pain on the left foot is controlled with pain meds. Review of Systems - Review of Systems All systems: reviewed and no additional remarkable complaints except (as per HPI ) Past Patient History - Infectious Disease Hx of Infectious Diseases: None - Tetanus Immunizations Tetanus Immunization: Unknown - Past Social History Smoking Status: Former Smoker - CARDIAC Hx Cardiac Disorders: Yes Hx Hypertension: Yes Other/Comment: endocarditis, pig valve, open heart sx - PULMONARY Hx Respiratory Disorders: No Hx Pneumonia: Yes - NEUROLOGICAL Hx Neurological Disorder: Yes HX Cerebrovascular Accident: Yes (x3) - HEENT Hx HEENT Problems: No - RENAL Hx Chronic Kidney Disease: No - ENDOCRINE/METABOLIC Hx Endocrine Disorders: Yes Hx Diabetes Mellitus Type 2: Yes - HEMATOLOGICAL/ONCOLOGICAL Hx Blood Disorders: No Hx Blood Transfusions: No Hx Blood Transfusion Reaction: No - INTEGUMENTARY Hx Dermatological Problems: No Other/Comment: diabetic foot infections - MUSCULOSKELETAL/RHEUMATOLOGICAL Hx Falls: Yes - GASTROINTESTINAL Hx Gastrointestinal Disorders: Yes Hx Gastroesophageal Reflux: Yes - GENITOURINARY/GYNECOLOGICAL Hx Reproductive Disorders: No - PSYCHIATRIC Hx Psychophysiologic Disorder: No Hx Emotional Abuse: No Hx Physical Abuse: No Hx Substance Use: No - SURGICAL HISTORY Hx Open Heart Surgery: Yes Hx Valve Replacement: Yes (pig valve) - ANESTHESIA Hx Anesthesia: Yes Hx Anesthesia Reactions: No Hx Malignant Hyperthermia: No Meds Allergies/Adverse Reactions: Allergies Allergy/AdvReac Type Severity Reaction Status Date / Time No Known Allergies Allergy Verified 07/17/17 18:39 - Medications Medications: Current Medications Acetaminophen (Tylenol 325mg Tab) 650 mg PO Q4H PRN; Protocol PRN Reason: Pain, Mild (1-3) Amlodipine Besylate (Norvasc) 5 mg PO DAILY [facility] PRN Reason: Protocol Aspirin (Ecotrin) 81 mg PO 0800 [facility] PRN Reason: Protocol Escitalopram Oxalate (Lexapro) 20 mg PO DAILY [facility] PRN Reason: Protocol Ceftriaxone Sodium (Rocephin 2 Gm Ivpb) 2 gm in 100 mls @ 100 mls/hr IVPB DAILY [facility] PRN Reason: Protocol Insulin Detemir (Levemir) 30 unit SC [facility] PRN Reason: Protocol Last Admin: 07/25/17 06:51 Dose: 30 unit Insulin Human Regular (Humulin R Med) 0 units SC [facility] PRN Reason: Protocol Last Admin: 07/25/17 06:51 Dose: 3 units Levetiracetam (Keppra) 500 mg PO BID [facility] PRN Reason: Protocol Lisinopril (Zestril) 20 mg PO DAILY [facility] PRN Reason: Protocol Metoprolol Tartrate (Lopressor) 50 mg PO 0800,1800 [facility] PRN Reason: Protocol Ondansetron HCl (Zofran Inj) 4 mg IVP ONCE PRN; Protocol PRN Reason: Nausea/Vomiting Pantoprazole Sodium (Protonix Ec Tab) 20 mg PO ACB [facility] PRN Reason: Protocol Polyethylene Glycol (Miralax) 17 gm PO DAILY [facility] PRN Reason: Protocol Trazodone HCl (Desyrel) 25 mg PO HS [facility] PRN Reason: Protocol Last Admin: 07/24/17 22:57 Dose: 25 mg Physical Exam - Constitutional Appears: Non-toxic, No Acute Distress - Head Exam Head Exam: NORMAL INSPECTION - ENT Exam ENT Exam: Mucous Membranes Moist - Neck Exam Neck exam: Negative for: Lymphadenopathy, Meningismus - Respiratory Exam Respiratory Exam: Decreased Breath Sounds - Cardiovascular Exam Cardiovascular Exam: +S1, +S2 - GI/Abdominal Exam GI & Abdominal Exam: Soft. absent: Tenderness - Extremities Exam Additional comments: left foot with dressings in place Assessment & Plan - Assessment and Plan (Free Text) Plan: Assessment sepsis due to left foot infection/ cellulitis with MSSA and Strep anginosus S/P I and D and metatarsal resection history of MRSA bacteremia with infection of the right lower extremity with probable osteomyelitis S/P tenotomy History of Corynebacterium, Grp G strep bacteremia and mitral valve endocarditis S/P valve surgery and replacement ESBL Klebsiella in the urine DM HTN history of alcohol abuse Plan Continue Rocephin - as discussed with Dr. Hurtado, pathology of bone shows osteomyelitis but margins are clear - MRI did not show osteomyelitis as well - need 7 more days of Rocephin will continue to monitor clinically
--- NOTE | 2017-07-25 19:49 | PN ---
DATE: A 62-year-old white male transferred to TCU from [facility]. The patient is status post surgery of his left foot for diabetic foot and bone infection. There is a history of SBE and bilateral cerebral infarcts from septic emboli, history of poorly controlled diabetes mellitus, insulin dependent and peripheral neuropathy. The patient is stable. He is afebrile. He is comfortable. He is doing physical therapy and occupational therapy. Blood pressure is much better controlled, 138/76. The patient remains under the care of Dr. Hurtado for Podiatry and Dr. Freeman for Infectious Disease. He is also doing physical therapy and occupational therapy. Physical examination is unchanged. Plan is to continue IV antibiotics and physical therapy. Hayden Gutierrez MD
[2017-07-26] MEDS: cefTRIAXone 2 GM IN NS 2 GM/100 ML BAG IVPB SCH (05:45)
[2017-07-26] MEDS: Insulin Reg-MEDIUM-Coverage SC SCH ×4 (06:59→22:52)
[2017-07-26] MEDS: Insulin Detemir 100 units/ml Vial (Levemir) SC SCH ×2 (07:00→22:52)
[2017-07-26] MEDS: Pantoprazole 20 mg EC Tab PO SCH (08:35)
[2017-07-26 09:00] LABS: ALB/GLOB RATIO 0.9 (1.1-1.8); ALKALINE PHOSPHATASE 118 U/L (38-126); ALT/SGPT 55 U/L (7-56); AST/SGOT 44 U/L (17-59); BILIRUBIN,TOTAL 0.5 mg/dL (0.2-1.3); BLOOD UREA NITROGEN 21 mg/dL (7-21); CALCIUM 8.8 mg/dL (8.4-10.5); CARBON DIOXIDE 30 mmol/L (21-33); CHLORIDE 101 mmol/L (95-110); GFR AFRICAN-AMERICAN > 60; GLUCOSE,RANDOM 145 mg/dL (70-110); SODIUM 140 mmol/L (132-148); TOTAL PROTEIN 7.2 g/dL (5.8-8.3)
--- NOTE | 2017-07-26 09:09 | CP.PCM.CON ---
<Nic Jhaveri - Last Filed: 07/26/17 08:49> History of Present Illness - History of Present Illness History of Present Illness: Podiatry progress note for Dr. Huratdo- 62 y/o male seen and evaluated at bedside 7 days s/p excisional debridement of gangrenous wound with incision and drainage and 1st metatarsal resection of left foot. Patient appears to be resting comfortably in his bed and is in NAD. Patient is AAOx3. Patient denies of any acute overnight events and denies of any pain to his left foot. Patient denies of any F/N/V/C/SOB/chest pain now. Patient denies of any other pedal complains at this time. Review of Systems - Review of Systems Review of Systems: ROS unremarkable outside HPI Past Patient History - Infectious Disease Hx of Infectious Diseases: None - Tetanus Immunizations Tetanus Immunization: Unknown - Past Social History Smoking Status: Former Smoker - CARDIAC Hx Pacemaker: No - PULMONARY Hx Respiratory Disorders: No Hx Pneumonia: Yes - NEUROLOGICAL Hx Neurological Disorder: Yes HX Cerebrovascular Accident: Yes (x3) - HEENT Hx HEENT Problems: No - RENAL Hx Chronic Kidney Disease: No - ENDOCRINE/METABOLIC Hx Endocrine Disorders: Yes Hx Diabetes Mellitus Type 2: Yes - HEMATOLOGICAL/ONCOLOGICAL Hx Cancer: No - INTEGUMENTARY Hx Dermatological Problems: No Other/Comment: diabetic foot infections - MUSCULOSKELETAL/RHEUMATOLOGICAL Hx Falls: Yes - GASTROINTESTINAL Hx Gastrointestinal Disorders: Yes Hx Gastroesophageal Reflux: Yes - GENITOURINARY/GYNECOLOGICAL Hx Reproductive Disorders: No - PSYCHIATRIC Hx Psychophysiologic Disorder: No Hx Emotional Abuse: No Hx Physical Abuse: No Hx Substance Use: No - SURGICAL HISTORY Hx Mastectomy: No - ANESTHESIA Hx Anesthesia: Yes Hx Anesthesia Reactions: No Hx Malignant Hyperthermia: No Meds Allergies/Adverse Reactions: Allergies Allergy/AdvReac Type Severity Reaction Status Date / Time No Known Allergies Allergy Verified 07/17/17 18:39 - Medications Medications: Current Medications Acetaminophen (Tylenol 325mg Tab) 650 mg PO Q4H PRN; Protocol PRN Reason: Pain, Mild (1-3) Amlodipine Besylate (Norvasc) 5 mg PO DAILY [facility] PRN Reason: Protocol Last Admin: 07/25/17 12:03 Dose: 5 mg Aspirin (Ecotrin) 81 mg PO 0800 [facility] PRN Reason: Protocol Last Admin: 07/26/17 08:34 Dose: 81 mg Escitalopram Oxalate (Lexapro) 20 mg PO DAILY [facility] PRN Reason: Protocol Last Admin: 07/25/17 12:02 Dose: 20 mg Ceftriaxone Sodium (Rocephin 2 Gm Ivpb) 2 gm in 100 mls @ 100 mls/hr IVPB 0600 [facility] PRN Reason: Protocol Last Admin: 07/26/17 05:45 Dose: 100 mls/hr Insulin Detemir (Levemir) 30 unit SC [facility] PRN Reason: Protocol Last Admin: 07/26/17 07:00 Dose: Not Given Insulin Human Regular (Humulin R Med) 0 units SC [facility] PRN Reason: Protocol Last Admin: 07/26/17 06:59 Dose: Not Given Levetiracetam (Keppra) 500 mg PO BID [facility] PRN Reason: Protocol Last Admin: 07/25/17 18:32 Dose: 500 mg Lisinopril (Zestril) 20 mg PO DAILY [facility] PRN Reason: Protocol Last Admin: 07/25/17 12:05 Dose: 20 mg Metoprolol Tartrate (Lopressor) 50 mg PO 0800,1800 [facility] PRN Reason: Protocol Last Admin: 07/26/17 08:34 Dose: 50 mg Ondansetron HCl (Zofran Inj) 4 mg IVP ONCE PRN; Protocol PRN Reason: Nausea/Vomiting Pantoprazole Sodium (Protonix Ec Tab) 20 mg PO ACB [facility] PRN Reason: Protocol Last Admin: 07/26/17 08:35 Dose: 20 mg Polyethylene Glycol (Miralax) 17 gm PO DAILY [facility] PRN Reason: Protocol Last Admin: 07/25/17 12:03 Dose: 17 gm Trazodone HCl (Desyrel) 25 mg PO HS [facility] PRN Reason: Protocol Last Admin: 07/25/17 21:30 Dose: 25 mg Physical Exam - Constitutional Appears: Well, Non-toxic, No Acute Distress - Extremities Exam Additional comments: Left foot focused exam: VASC: DP/PT pulses are palpable, Cap Refill time: < 4 sec to all digits, Temp gradient: warm to cool from proximal to distal, mild non-pitting edema noted on the distal foot DERM: surgical incision located dorsum of the left foot with sutures intact, skin co-apted with no dehiscence noted; plantar wound measuring approximately 2.0 cm x 2.0 cm with deep deficit on the plantar aspect at the level of 1st metatarsal head noted; wound base appears mix fibrous and granular in nature with no active drainage at the moment, no active malodor, no purulence, no fluctunce, minimal surrounding erythema, skin color has to the left hallux has returned WNL. Sanguinous drainage expressed. NEURO: Protective sensation is grossly diminished ORTHO: no pain on palpation of the surgical site or plantar wound - Neurological Exam Neurological exam: Alert, Oriented x3 - Psychiatric Exam Psychiatric exam: Normal Affect, Normal Mood Results - Vital Signs Recent Vital Signs: Last Vital Signs Temp 97.6 F 07/25/17 17:02 Pulse 73 07/26/17 08:34 Resp 15 07/25/17 17:02 BP 119/67 07/26/17 08:34 Pulse Ox 97 07/25/17 10:00 - Labs Labs: Laboratory Results - last 24 hr 07/25/17 07/25/17 17:11 21:53 POC Glucose (mg/dL) 162 H 231 H Assessment & Plan - Assessment and Plan (Free Text) Assessment: 62 y/o male seen and evaluated at bedside 7 days s/p excisional debridement of gangrenous wound with incision and drainage and 1st metatarsal resection of left foot Plan: Patient seen and evaluated at bedside with attending Dr. Hurtado Wound dressed with silvercel, gauze, ABD, kirlix, LUI Discussed with patient application of wound vac and hyperbaric oxygen therapy to help heal wound, patient was receptive to wound vac but not hyperbaric oxygen therapy Labs and vitals reviewed Continue with IV abx Wound care daily by podiatry Continue OT/PT Podiatry to follow patient while patient remains in house - Date & Time Date: 07/26/17 Time: 09:17 <Josh Hurtado - Last Filed: 07/26/17 17:48> Meds - Medications Medications: Current Medications Acetaminophen (Tylenol 325mg Tab) 650 mg PO Q4H PRN; Protocol PRN Reason: Pain, Mild (1-3) Amlodipine Besylate (Norvasc) 5 mg PO DAILY [facility] PRN Reason: Protocol Last Admin: 07/26/17 10:45 Dose: 5 mg Aspirin (Ecotrin) 81 mg PO 0800 [facility] PRN Reason: Protocol Last Admin: 07/26/17 08:34 Dose: 81 mg Escitalopram Oxalate (Lexapro) 20 mg PO DAILY [facility] PRN Reason: Protocol Last Admin: 07/26/17 10:45 Dose: 20 mg Ceftriaxone Sodium (Rocephin 2 Gm Ivpb) 2 gm in 100 mls @ 100 mls/hr IVPB 0600 [facility] PRN Reason: Protocol Last Admin: 07/26/17 05:45 Dose: 100 mls/hr Insulin Detemir (Levemir) 30 unit SC [facility] PRN Reason: Protocol Last Admin: 07/26/17 07:00 Dose: Not Given Insulin Human Regular (Humulin R Med) 0 units SC [facility] PRN Reason: Protocol Last Admin: 07/26/17 12:22 Dose: 1 units Levetiracetam (Keppra) 500 mg PO BID [facility] PRN Reason: Protocol Last Admin: 07/26/17 10:45 Dose: 500 mg Lisinopril (Zestril) 20 mg PO DAILY [facility] PRN Reason: Protocol Last Admin: 07/26/17 10:46 Dose: 20 mg Metoprolol Tartrate (Lopressor) 50 mg PO 0800,1800 [facility] PRN Reason: Protocol Last Admin: 07/26/17 08:34 Dose: 50 mg Ondansetron HCl (Zofran Inj) 4 mg IVP ONCE PRN; Protocol PRN Reason: Nausea/Vomiting Pantoprazole Sodium (Protonix Ec Tab) 20 mg PO ACB [facility] PRN Reason: Protocol Last Admin: 07/26/17 08:35 Dose: 20 mg Polyethylene Glycol (Miralax) 17 gm PO DAILY [facility] PRN Reason: Protocol Last Admin: 07/26/17 10:45 Dose: 17 gm Trazodone HCl (Desyrel) 25 mg PO HS [facility] PRN Reason: Protocol Last Admin: 07/25/17 21:30 Dose: 25 mg Results - Vital Signs Recent Vital Signs: Last Vital Signs Temp 97.5 F L 07/26/17 17:30 Pulse 61 07/26/17 17:30 Resp 20 07/26/17 17:30 BP 164/77 H 07/26/17 17:30 Pulse Ox 97 07/26/17 17:30 - Labs Result Diagrams: 07/26/17 08:30 Labs: Laboratory Results - last 24 hr 10/07/25/17 07/26/17 17:11 21:53 06:42 Sodium Potassium Chloride Carbon Dioxide Anion Gap BUN Creatinine Est GFR ( Amer) Est GFR (Non-Af Amer) POC Glucose (mg/dL) 162 H 231 H 114 H Random Glucose Calcium Total Bilirubin AST ALT Alkaline Phosphatase Total Protein Albumin Globulin Albumin/Globulin Ratio 07/26/17 07/26/17 07/26/17 08:30 12:06 17:06 Sodium 140 Potassium 4.0 Chloride 101 Carbon Dioxide 30 Anion Gap 13 BUN 21 Creatinine 0.9 Est GFR ( Amer) > 60 Est GFR (Non-Af Amer) > 60 POC Glucose (mg/dL) 171 H 177 H Random Glucose 145 H Calcium 8.8 Total Bilirubin 0.5 AST 44 ALT 55 Alkaline Phosphatase 118 Total Protein 7.2 Albumin 3.5 Globulin 3.7 Albumin/Globulin Ratio 0.9 L Attending/Attestation - Attestation I have personally seen and examined this patient.: Yes I have fully participated in the care of the patient.: Yes I have reviewed all pertinent clinical information: Yes
[2017-07-26] MEDS: POLYETHYLENE GLYCOL 3350 17 GM/Dose PACKET PO SCH (10:45)
--- NOTE | 2017-07-26 12:20 | CP.PCM.PN ---
Subjective - Date & Time of Evaluation Date of Evaluation: 07/26/17 Time of Evaluation: 11:35 - Subjective Subjective: No new complaints, no fevers. Objective - Vital Signs/Intake and Output Vital Signs (last 24 hours): Temp Pulse Resp BP Pulse Ox 97.6 F 73 15 119/67 97 07/25/17 17:02 07/26/17 08:34 07/25/17 17:02 07/26/17 08:34 07/25/17 10:00 - Medications Medications: Current Medications Acetaminophen (Tylenol 325mg Tab) 650 mg PO Q4H PRN; Protocol PRN Reason: Pain, Mild (1-3) Amlodipine Besylate (Norvasc) 5 mg PO DAILY [facility] PRN Reason: Protocol Last Admin: 07/25/17 12:03 Dose: 5 mg Aspirin (Ecotrin) 81 mg PO 0800 [facility] PRN Reason: Protocol Last Admin: 07/26/17 08:34 Dose: 81 mg Escitalopram Oxalate (Lexapro) 20 mg PO DAILY [facility] PRN Reason: Protocol Last Admin: 07/25/17 12:02 Dose: 20 mg Ceftriaxone Sodium (Rocephin 2 Gm Ivpb) 2 gm in 100 mls @ 100 mls/hr IVPB 0600 [facility] PRN Reason: Protocol Last Admin: 07/26/17 05:45 Dose: 100 mls/hr Insulin Detemir (Levemir) 30 unit SC [facility] PRN Reason: Protocol Last Admin: 07/26/17 07:00 Dose: Not Given Insulin Human Regular (Humulin R Med) 0 units SC [facility] PRN Reason: Protocol Last Admin: 07/26/17 06:59 Dose: Not Given Levetiracetam (Keppra) 500 mg PO BID [facility] PRN Reason: Protocol Last Admin: 07/25/17 18:32 Dose: 500 mg Lisinopril (Zestril) 20 mg PO DAILY [facility] PRN Reason: Protocol Last Admin: 07/25/17 12:05 Dose: 20 mg Metoprolol Tartrate (Lopressor) 50 mg PO 0800,1800 [facility] PRN Reason: Protocol Last Admin: 07/26/17 08:34 Dose: 50 mg Ondansetron HCl (Zofran Inj) 4 mg IVP ONCE PRN; Protocol PRN Reason: Nausea/Vomiting Pantoprazole Sodium (Protonix Ec Tab) 20 mg PO ACB [facility] PRN Reason: Protocol Last Admin: 07/26/17 08:35 Dose: 20 mg Polyethylene Glycol (Miralax) 17 gm PO DAILY [facility] PRN Reason: Protocol Last Admin: 07/25/17 12:03 Dose: 17 gm Trazodone HCl (Desyrel) 25 mg PO HS [facility] PRN Reason: Protocol Last Admin: 07/25/17 21:30 Dose: 25 mg - Labs Labs: 07/26/17 08:30 - Constitutional Appears: Non-toxic, No Acute Distress - Head Exam Head Exam: NORMAL INSPECTION - Neck Exam Neck Exam: absent: Meningismus - Respiratory Exam Respiratory Exam: Decreased Breath Sounds - Cardiovascular Exam Cardiovascular Exam: +S1, +S2 - GI/Abdominal Exam GI & Abdominal Exam: Soft. absent: Tenderness - Extremities Exam Additional comments: left foot with dressings in place Assessment and Plan - Assessment and Plan (Free Text) Plan: Assessment sepsis due to left foot infection/ cellulitis with MSSA and Strep anginosus S/P I and D and metatarsal resection history of MRSA bacteremia with infection of the right lower extremity with probable osteomyelitis S/P tenotomy History of Corynebacterium, Grp G strep bacteremia and mitral valve endocarditis S/P valve surgery and replacement ESBL Klebsiella in the urine DM HTN history of alcohol abuse Plan Continue Rocephin for 6 more days - as discussed with Dr. Hurtado, pathology of bone shows osteomyelitis but margins are clear - MRI did not show osteomyelitis as well will continue to monitor clinically
--- NOTE | 2017-07-26 16:36 | PN ---
A 62-year-old white male, insulin-dependent diabetic, peripheral vascular disease, status post endocarditis, status post bilateral septic emboli to the brain and CVAs. The patient is status post left foot surgery by Dr. Hurtado for diabetic foot infection. The patient is afebrile. Vital signs are stable. He is on IV antibiotics. He is doing physical therapy and occupational therapy. BUN and creatinine are stable, 21 and 0.9. Blood sugar is at 145 today. Blood pressure is 114/81. He is remarkably improved. Continue physical therapy and occupational therapy. Hayden Gutierrez MD
--- NOTE | 2017-07-26 21:27 | CON ---
DATE: 07/26/2017 REQUESTING PHYSICIAN: Dr. Gutierrez. REASON FOR CONSULTATION: Cardiology followup. HISTORY OF PRESENT ILLNESS: This is a 62-year-old man well known to me with complex past medical history admitted with leg cellulitis. He is found to have methicillin-sensitive Staphylococcus aureus in his wound and undergoing treatment with antibiotics. He had infective endocarditis in 2014 requiring mitral valve replacement. At the time of his catheterization, he was found to have coronary artery disease and underwent mitral valve replacement with single bypass to his posterior descending artery. He was admitted in 07/2015 with methicillin-resistant Staphylococcus aureus infection; however, there is no evidence of endocarditis at that time. PAST MEDICAL HISTORY: Notable for the problems mentioned above. He suffered a cerebrovascular accident 14 years ago. He has history of hypertension, diabetes, Durán's palsy, as well as gastroesophageal reflux disease, he has undergone prior cholecystectomy. CURRENT MEDICATIONS: Include Desyrel, Ecotrin, insulin, Keppra, Levemir insulin, Lexapro, metoprolol 50 mg b.i.d., MiraLax, Norvasc 5 mg daily, Protonix 20 mg daily, Rocephin, Zestril 20 mg daily. ALLERGIES: HE HAS NO REPORTED ALLERGIES. FAMILY HISTORY: Mother from cerebrovascular accident at age of 62. Father from unknown cause at age 53, one brother has history of cancer. SOCIAL HISTORY: He is disabled and lives with his . He is a former smoker. He has history of alcohol abuse in the past as well. REVIEW OF SYSTEMS: A 10-point review of systems is notable mainly for problems mentioned above. He does have some speech difficulties since his stroke and has difficulty ambulating as well. PHYSICAL EXAMINATION: GENERAL: He is a chronically ill appearing middle age male. VITAL SIGNS: Blood pressure is 140/80 with pulse of 70 and regular, respirations are 14, he is afebrile. HEENT: Right facial droop is noted. NECK: Supple. No JVD present. CHEST: Few scattered rhonchi heard. HEART: PMI normal position. No pathologic gallops noted. ABDOMEN: Soft, nontender, normoactive bowel sounds. EXTREMITIES: No clubbing, cyanosis or edema. PSYCHIATRIC: Flat affect, but otherwise unremarkable. NEUROLOGIC: Alert and oriented x3. Mild left-sided weakness is present. DIAGNOSTIC DATA: Potassium 4.0, BUN and creatinine 21 and 0.9, glucose is 145. IMPRESSION: 1. Foot infection, currently on antibiotics, so apparently has no evidence of osteomyelitis. Blood cultures were negative. 2. Prosthetic mitral valve with history of prior endocarditis. No evidence of prosthetic valve endocarditis at the present time. 3. Rest of the problems as noted. RECOMMENDATIONS: From a cardiac standpoint, his current medications should be continued. Rehabilitation effect should continue as well. No other specific cardiac precautions appear necessary at this time. We will be happy to follow along as needed. Alec Mejia MD
[2017-07-27] MEDS: cefTRIAXone 2 GM IN NS 2 GM/100 ML BAG IVPB SCH (05:56)
[2017-07-27] MEDS: Insulin Detemir 100 units/ml Vial (Levemir) SC SCH ×2 (06:45→22:26)
[2017-07-27] MEDS: Insulin Reg-MEDIUM-Coverage SC SCH ×4 (06:45→22:20)
[2017-07-27] MEDS: Pantoprazole 20 mg EC Tab PO SCH (08:56)
--- NOTE | 2017-07-27 10:12 | PN ---
SUBJECTIVE: A 62-year-old male, seen at bedside, status post left first metatarsal head resection as well as extensive incision and drainage with debridement of gangrenous wound on left foot. The patient is resting comfortably in his chair. Wound VAC is in place. There is noted to be minimal serous drainage in the canister. He denies any pain in his foot. The patient's vital signs today revealed temperature of 97.5, pulse rate of 61, blood pressure of 164/77 and respiratory rate of 20. LABORATORY FINDINGS: Reveal white count of 8.7, hemoglobin of 11.7, hematocrit of 35.1 and platelet count of 299. Most recent wound culture reveals Staphylococcus aureus growth. OBJECTIVE: The patient's wound VAC is in place. There are no leaks noted. There is minimal serous drainage in the canister. Dorsal incision site is well coapted with no signs of dehiscence. ASSESSMENT: Status post left first metatarsal head resection and extensive incision and complicated incision and drainage of left foot abscess. PLAN: The patient's wound VAC was inspected and found to be operating with no leaks. The patient was encouraged to walk as tolerated with his surgical forefoot wedge shoe on. We will continue with IV antibiotics as per infectious disease. We will use the wound VAC for the next several days in an effort to contract the large plantar wound that is present on his foot and allow granulation tissue to fill in the wound. The patient will be seen and followed daily. Josh Hurtado DPM
[2017-07-27] MEDS: POLYETHYLENE GLYCOL 3350 17 GM/Dose PACKET PO SCH (12:29)
--- NOTE | 2017-07-27 17:44 | CP.PCM.PN ---
Subjective - Date & Time of Evaluation Date of Evaluation: 07/27/17 Time of Evaluation: 10:00 - Subjective Subjective: Comfortable, no new complaints, no fevers overnight. Objective - Vital Signs/Intake and Output Vital Signs (last 24 hours): Temp Pulse Resp BP Pulse Ox 97.5 F L 61 20 164/77 H 97 07/26/17 17:30 07/26/17 17:47 07/26/17 17:30 07/26/17 17:47 07/26/17 17:30 - Medications Medications: Current Medications Acetaminophen (Tylenol 325mg Tab) 650 mg PO Q4H PRN; Protocol PRN Reason: Pain, Mild (1-3) Amlodipine Besylate (Norvasc) 5 mg PO DAILY BABS PRN Reason: Protocol Last Admin: 07/26/17 10:45 Dose: 5 mg Aspirin (Ecotrin) 81 mg PO 0800 BABS PRN Reason: Protocol Last Admin: 07/26/17 08:34 Dose: 81 mg Escitalopram Oxalate (Lexapro) 20 mg PO DAILY BABS PRN Reason: Protocol Last Admin: 07/26/17 10:45 Dose: 20 mg Ceftriaxone Sodium (Rocephin 2 Gm Ivpb) 2 gm in 100 mls @ 100 mls/hr IVPB 0600 BABS PRN Reason: Protocol Last Admin: 07/27/17 05:56 Dose: 100 mls/hr Insulin Detemir (Levemir) 30 unit SC ACBHS BABS PRN Reason: Protocol Last Admin: 07/27/17 06:45 Dose: 30 unit Insulin Human Regular (Humulin R Med) 0 units SC ACHS BABS PRN Reason: Protocol Last Admin: 07/27/17 06:45 Dose: 7 units Levetiracetam (Keppra) 500 mg PO BID BABS PRN Reason: Protocol Last Admin: 07/26/17 17:47 Dose: 500 mg Lisinopril (Zestril) 20 mg PO DAILY BABS PRN Reason: Protocol Last Admin: 07/26/17 10:46 Dose: 20 mg Metoprolol Tartrate (Lopressor) 50 mg PO 0800,1800 BABS PRN Reason: Protocol Last Admin: 07/26/17 17:47 Dose: 50 mg Ondansetron HCl (Zofran Inj) 4 mg IVP ONCE PRN; Protocol PRN Reason: Nausea/Vomiting Pantoprazole Sodium (Protonix Ec Tab) 20 mg PO ACB BABS PRN Reason: Protocol Last Admin: 07/26/17 08:35 Dose: 20 mg Polyethylene Glycol (Miralax) 17 gm PO DAILY BABS PRN Reason: Protocol Last Admin: 07/26/17 10:45 Dose: 17 gm Trazodone HCl (Desyrel) 25 mg PO HS BABS PRN Reason: Protocol Last Admin: 07/26/17 21:39 Dose: 25 mg - Labs Labs: 07/26/17 08:30 - Constitutional Appears: Non-toxic, No Acute Distress - Head Exam Head Exam: NORMAL INSPECTION - Neck Exam Neck Exam: absent: Meningismus - Respiratory Exam Respiratory Exam: Decreased Breath Sounds - Cardiovascular Exam Cardiovascular Exam: +S1, +S2 - GI/Abdominal Exam GI & Abdominal Exam: Soft. absent: Tenderness Assessment and Plan - Assessment and Plan (Free Text) Plan: Assessment sepsis due to left foot infection/ cellulitis with MSSA and Strep anginosus S/P I and D and metatarsal resection history of MRSA bacteremia with infection of the right lower extremity with probable osteomyelitis S/P tenotomy History of Corynebacterium, Grp G strep bacteremia and mitral valve endocarditis S/P valve surgery and replacement ESBL Klebsiella in the urine DM HTN history of alcohol abuse Plan Continue Rocephin for 5 more days - as discussed with Dr. Hurtado, pathology of bone shows osteomyelitis but margins are clear - MRI did not show osteomyelitis as well will continue to follow clinically
--- NOTE | 2017-07-27 22:21 | PN ---
DATE: SUBJECTIVE: A 62-year-old white male in TCU, doing physical therapy and occupational therapy status post left foot surgery for left diabetic infection, history of neuropathy and diabetic ischemic foot disease, history of bilateral CVAs from SBE. Patient is stable, continues on IV antibiotics. He is awake, alert, oriented x3. He is doing physical therapy and occupational therapy. He is taking some steps. He is on a offloading foot. He is nonweightbearing. Hayden Gutierrez MD
[2017-07-28] MEDS: cefTRIAXone 2 GM IN NS 2 GM/100 ML BAG IVPB SCH (05:28)
[2017-07-28] MEDS: Pantoprazole 20 mg EC Tab PO SCH (05:30)
[2017-07-28] MEDS: Insulin Reg-MEDIUM-Coverage SC SCH ×4 (06:59→22:15)
[2017-07-28] MEDS: Insulin Detemir 100 units/ml Vial (Levemir) SC SCH ×2 (06:59→22:14)
[2017-07-28] MEDS: POLYETHYLENE GLYCOL 3350 17 GM/Dose PACKET PO SCH (09:02)
--- NOTE | 2017-07-28 10:54 | PN ---
SUBJECTIVE: A 62-year-old white male status post bilateral CVA, subacute bacterial endocarditis, insulin-dependent diabetes mellitus, poorly controlled; peripheral neuropathy, left diabetic foot infection, status post surgery. The patient is doing physical therapy and occupational therapy. Continue IV antibiotics and plan is to continue the same and possible discharge early next week. Hayden Gutierrez MD
[2017-07-28 11:09] LABS: MEAN CELL VOLUME 86.6 fl (80.0-105.0); MEAN CORPUSCULAR HEMOGLOBIN 28.2 pg (25.0-35.0); MEAN CORPUSCULAR HGB CONC 32.6 g/dl (31.0-37.0); RED CELL DISTRIBUTION WIDTH 12.5 % (11.5-14.5); WHITE BLOOD COUNT 7.8 10^3/ul (4.5-11.0)
--- NOTE | 2017-07-28 11:55 | PN ---
DATE: 07/28/2017 SUBJECTIVE: The patient is in bed, no acute distress, and nontoxic. OBJECTIVE: VITAL SIGNS: Temperature is 98, blood pressure is 120/70, and respiratory rate of 16. HEENT: Examination of HEENT is unremarkable. NECK: Supple. LUNGS: Have decreased breath sounds. HEART: Normal S1 and S2. ABDOMEN: Soft and nontender. LABORATORY EXAMINATION: Reveals a BUN of 21 and creatinine of 0.9. ASSESSMENT AND PLAN: This is a 62-year-old with sepsis with a left foot infection and cellulitis with methicillin-susceptible Staphylococcus aureus and Streptococcus sanguinis, status post incision and drainage and metatarsal resection with a history of methicillin-resistant Staphylococcus aureus infection of the right lower extremity and probable osteomyelitis, status post surgery and history of corynebacterium and CDC group G streptococcus bacteremia, not group G however CDC bacteremia with mitral valve endocarditis, status post valve surgery replacement, extended-spectrum beta-lactamases Klebsiella in the urine, currently on Rocephin for 4 more days. The pathology of bone shows osteomyelitis, but margins are clear and MRI did not show osteomyelitis as well and review of the pathology with no evidence of acute metatarsal bone. We will follow with you. Lino Freeman MD
--- NOTE | 2017-07-28 14:38 | CP.PCM.PN ---
<Nic Jhaveri - Last Filed: 07/28/17 14:34> Subjective - Date & Time of Evaluation Date of Evaluation: 07/28/17 Time of Evaluation: 09:34 - Subjective Subjective: Podiatry progress note for Dr. Hurtado- 62 y/o male seen and evaluated at bedside 9 days s/p excisional debridement of gangrenous wound with incision and drainage and 1st metatarsal resection of left foot and application of wound vac on 07/26. Patient appears to be resting comfortably in his bed and is in NAD. Patient is AAOx3. Patient denies of any acute overnight events and denies of any pain to his left foot. Patient denies of any F/N/V/C/SOB/chest pain now. Patient denies any other pedal complaints at this time. Objective - Vital Signs/Intake and Output Vital Signs (last 24 hours): Temp Pulse Resp BP Pulse Ox 98.4 F 60 16 124/73 97 07/28/17 06:00 07/28/17 09:02 07/28/17 06:00 07/28/17 09:01 07/28/17 06:00 - Medications Medications: Current Medications Acetaminophen (Tylenol 325mg Tab) 650 mg PO Q4H PRN; Protocol PRN Reason: Pain, Mild (1-3) Amlodipine Besylate (Norvasc) 5 mg PO DAILY BABS PRN Reason: Protocol Last Admin: 07/28/17 09:02 Dose: 5 mg Aspirin (Ecotrin) 81 mg PO 0800 BABS PRN Reason: Protocol Last Admin: 07/28/17 08:59 Dose: 81 mg Escitalopram Oxalate (Lexapro) 20 mg PO DAILY BABS PRN Reason: Protocol Last Admin: 07/28/17 09:00 Dose: 20 mg Fluconazole (Diflucan) 100 mg PO 0800 BABS PRN Reason: Protocol Fluconazole (Diflucan) 100 mg PO DAILY BABS PRN Reason: Protocol Ceftriaxone Sodium (Rocephin 2 Gm Ivpb) 2 gm in 100 mls @ 100 mls/hr IVPB 0600 BABS PRN Reason: Protocol Last Admin: 07/28/17 05:28 Dose: 100 mls/hr Insulin Detemir (Levemir) 30 unit SC ACBHS BABS PRN Reason: Protocol Last Admin: 07/28/17 06:59 Dose: 30 unit Insulin Human Regular (Humulin R Med) 0 units SC ACHS BABS PRN Reason: Protocol Last Admin: 07/28/17 06:59 Dose: 3 units Levetiracetam (Keppra) 500 mg PO BID BABS PRN Reason: Protocol Last Admin: 07/28/17 09:00 Dose: 500 mg Lisinopril (Zestril) 20 mg PO DAILY BABS PRN Reason: Protocol Last Admin: 07/28/17 09:02 Dose: 20 mg Metoprolol Tartrate (Lopressor) 50 mg PO 0800,1800 BABS PRN Reason: Protocol Last Admin: 07/28/17 09:01 Dose: 50 mg Ondansetron HCl (Zofran Inj) 4 mg IVP ONCE PRN; Protocol PRN Reason: Nausea/Vomiting Pantoprazole Sodium (Protonix Ec Tab) 20 mg PO 0600 BABS PRN Reason: Protocol Last Admin: 07/28/17 05:30 Dose: 20 mg Polyethylene Glycol (Miralax) 17 gm PO DAILY BABS PRN Reason: Protocol Last Admin: 07/28/17 09:02 Dose: 17 gm Trazodone HCl (Desyrel) 25 mg PO HS BABS PRN Reason: Protocol Last Admin: 07/27/17 21:21 Dose: 25 mg - Labs Labs: 07/28/17 11:01 07/26/17 08:30 - Constitutional Appears: Well, Non-toxic, No Acute Distress - Extremities Exam Additional comments: Wound vac checked quickly to determine extent of drainage extracted over past two days Minimal drainage noted - Neurological Exam Neurological Exam: Alert, Awake, Oriented x3 - Psychiatric Exam Psychiatric exam: Normal Affect, Normal Mood Assessment and Plan - Assessment and Plan (Free Text) Assessment: 62 y/o male seen and evaluated at bedside 9 days s/p excisional debridement of gangrenous wound with incision and drainage and 1st metatarsal resection of left foot with application of wound vac Plan: Patient seen and evaluated at bedside with attending Dr. Hurtado Wound vac noted to be functioning adequately To be removed tomorrow 07/29/17 Labs and vitals reviewed Continue with IV abx Wound care daily by podiatry Continue OT/PT Podiatry to follow patient while patient remains in house <Josh Hurtado - Last Filed: 07/28/17 16:34> Objective - Vital Signs/Intake and Output Vital Signs (last 24 hours): Temp Pulse Resp BP Pulse Ox 98.4 F 60 16 124/73 97 07/28/17 06:00 07/28/17 09:02 07/28/17 06:00 07/28/17 09:01 07/28/17 06:00 - Medications Medications: Current Medications Acetaminophen (Tylenol 325mg Tab) 650 mg PO Q4H PRN; Protocol PRN Reason: Pain, Mild (1-3) Amlodipine Besylate (Norvasc) 5 mg PO DAILY BABS PRN Reason: Protocol Last Admin: 07/28/17 09:02 Dose: 5 mg Aspirin (Ecotrin) 81 mg PO 0800 BABS PRN Reason: Protocol Last Admin: 07/28/17 08:59 Dose: 81 mg Escitalopram Oxalate (Lexapro) 20 mg PO DAILY [facility] PRN Reason: Protocol Last Admin: 07/28/17 09:00 Dose: 20 mg Fluconazole (Diflucan) 100 mg PO 0800 BABS PRN Reason: Protocol Fluconazole (Diflucan) 100 mg PO DAILY BABS PRN Reason: Protocol Ceftriaxone Sodium (Rocephin 2 Gm Ivpb) 2 gm in 100 mls @ 100 mls/hr IVPB 0600 BABS PRN Reason: Protocol Last Admin: 07/28/17 05:28 Dose: 100 mls/hr Insulin Detemir (Levemir) 30 unit SC ACBHS BABS PRN Reason: Protocol Last Admin: 07/28/17 06:59 Dose: 30 unit Insulin Human Regular (Humulin R Med) 0 units SC ACHS BABS PRN Reason: Protocol Last Admin: 07/28/17 12:39 Dose: 3 units Levetiracetam (Keppra) 500 mg PO BID BABS PRN Reason: Protocol Last Admin: 07/28/17 09:00 Dose: 500 mg Lisinopril (Zestril) 20 mg PO DAILY BABS PRN Reason: Protocol Last Admin: 07/28/17 09:02 Dose: 20 mg Metoprolol Tartrate (Lopressor) 50 mg PO 0800,1800 [facility] PRN Reason: Protocol Last Admin: 07/28/17 09:01 Dose: 50 mg Ondansetron HCl (Zofran Inj) 4 mg IVP ONCE PRN; Protocol PRN Reason: Nausea/Vomiting Pantoprazole Sodium (Protonix Ec Tab) 20 mg PO 0600 [facility] PRN Reason: Protocol Last Admin: 07/28/17 05:30 Dose: 20 mg Polyethylene Glycol (Miralax) 17 gm PO DAILY BABS PRN Reason: Protocol Last Admin: 07/28/17 09:02 Dose: 17 gm Trazodone HCl (Desyrel) 25 mg PO HS BABS PRN Reason: Protocol Last Admin: 07/27/17 21:21 Dose: 25 mg - Labs Labs: 07/28/17 11:01 07/26/17 08:30 Attending/Attestation - Attestation I have personally seen and examined this patient.: Yes I have fully participated in the care of the patient.: Yes I have reviewed all pertinent clinical information, including history, physical exam and plan: Yes
[2017-07-29] MEDS: Pantoprazole 20 mg EC Tab PO SCH (05:38)
[2017-07-29] MEDS: cefTRIAXone 2 GM IN NS 2 GM/100 ML BAG IVPB SCH (05:38)
[2017-07-29] MEDS: Insulin Detemir 100 units/ml Vial (Levemir) SC SCH ×2 (06:43→21:52)
[2017-07-29] MEDS: Insulin Reg-MEDIUM-Coverage SC SCH ×4 (06:44→21:52)
[2017-07-29] MEDS: POLYETHYLENE GLYCOL 3350 17 GM/Dose PACKET PO SCH (09:33)
--- NOTE | 2017-07-29 10:28 | PN ---
DATE: 07/29/2017 SUBJECTIVE: The patient is in bed, no acute distress, nontoxic. PHYSICAL EXAMINATION: VITAL SIGNS: Temperature is 98, blood pressure is 130/60, respiratory rate of 18, heart rate of 58. EXAMINATION OF HEENT: Unremarkable. NECK: Supple. LUNGS: Decreased breath sounds. HEART: Normal S1 and S2. ABDOMEN: Soft and nontender. LABORATORY EXAMINATION: Reveals a white count of 7.8, hemoglobin 11, is 110. Chemistries are noted and the patient's creatinine is 0.9. REVIEW OF ORDERS: Reveal the patient to be on p.o. fluconazole and the patient is also on Keppra, which is levetiracetam and ceftriaxone. ASSESSMENT AND PLAN: A 62-year-old with sepsis with a left foot infection, cellulitis, and methicillin-susceptible Staphylococcus aureus and Streptococcus sanguinis, status post incision and drainage and metatarsal resection, history of methicillin-resistant Staphylococcus aureus, history of corynebacterium CDC group G bacteremia and CDC group G corynebacterium mitral valve endocarditis, status post mitral valve replacement, extended-spectrum beta-lactamases Klebsiella in the urine, currently on ceftriaxone, 3 more days and we will follow with you. Review of orders comprises ceftriaxone outpatient. Lino Freeman MD
--- NOTE | 2017-07-29 13:58 | PN ---
DATE: 07/29/2017 SUBJECTIVE: The patient was seen lying in bed in the Transitional Care Unit. He is comfortable at the present time. He remains on IV antibiotics. He denies any chest pain or palpitations. CURRENT MEDICATIONS: His current medications remain Desyrel, Diflucan, Ecotrin, insulin, Keppra, Levemir insulin, Lexapro, metoprolol 50 mg b.i.d., MiraLax, Norvasc 5 mg daily, Protonix, Rocephin, and Zestril 20 mg daily. PHYSICAL EXAMINATION GENERAL: He is a thin, chronically ill appearing middle aged man. VITAL SIGNS: His blood pressure is 118/66 with a pulse of 56, respirations are 16. He is afebrile. HEENT: No JVD. CHEST: Few scattered rhonchi. HEART: PMI displaced laterally. Soft systolic murmur is present at the left sternal border. ABDOMEN: Soft, nontender, normoactive bowel sounds. EXTREMITIES: Left foot is dressed and wrapped. No edema is noted. IMPRESSION: 1. Left foot infection with no evidence of osteomyelitis. 2. Status post prosthetic mitral valve replacement for prior endocarditis. 3. Coronary artery disease status post bypass surgery. 4. History of diabetes. RECOMMENDATIONS: His current cardiac medication should continue unchanged. Increased activity as tolerated is recommended. Once ready for discharge, he appears stable from a cardiac standpoint to do so. We will be happy to follow along as needed. Alec Mejia MD
--- NOTE | 2017-07-29 15:45 | PN ---
SUBJECTIVE: A 62-year-old white male seen at bedside, status post first metatarsal head resection secondary to diabetic gangrenous infected left foot ulceration. The patient had wound VAC application on for 2 days and reports no pain or discomfort from the machine. The patient has been afebrile and denies any pain. The patient has refused hyperbaric oxygen therapy as he cannot tolerate being in the machine even using a mild anxiolytic. PHYSICAL EXAMINATION: VITAL SIGNS: Revealed temperature of , pulse rate of 54, blood pressure of 118/67 and respiratory rate of 18. LABORATORY FINDINGS: Most recent laboratory findings reveal white count of 7.8, hemoglobin of 11.4, hematocrit of 35, ESR of 110 and platelet count is 335. Most recent wound culture reveals Staphylococcus aureus growth. OBJECTIVE: Weakly palpable pedal pulses noted bilaterally. Wound VAC was removed and there was noted to be macerated tissue along the periphery of the wound. Dorsal incision site remains intact, well coapted with no dehiscence. Plantar aspect of left the foot at the surgical site of the first metatarsal head resection presents with a still large full thickness ulceration. Base of the ulcer is primarily granular, but there is some fibrotic and necrotic tissue dispersed throughout. There is noted to be minimal serous drainage. There is no purulence. There is no malodor. The area is not edematous or erythematous to suggest cellulitis. No signs of ascending cellulitis. ASSESSMENT: Status post left first metatarsal head resection secondary to gangrenous infected left foot ulceration. PLAN: The patient's wound VAC was removed. We will discontinue applying the wound VAC as the wound is now macerated along the periphery; however, there was some contraction from the application of the VAC. The patient has refused hyperbaric oxygen therapy as he cannot tolerate being in the machine in the chamber. He was given anxiolytics before and still could not tolerate undergoing hyperbaric oxygen therapy. As discussed with the patient at this point, the fact that we will give his wound sometime in an effort to allow the wound to granulate in; however, the first ray resection may be warranted at sometime in the near future if wound stalls. Wound culture was taken and submitted for sensitivities, and the wound was flushed with normal sterile saline, application of calcium alginate with silver and loosely placed in the wound. The wound was covered with sterile 4 x 4 and sterile abdominal pad and dry sterile dressing. We will continue with IV antibiotics as per Infectious Disease. The patient was encouraged to walk as tolerated with the forefoot offloading shoe. The patient is set for discharge on Monday at which time, we will need to arrange a visiting nurse services to come to his house every other day to change his wound, and he will be seen at the wound center once weekly. The patient will be seen in followup daily. Josh Hurtado DPM
[2017-07-30] MEDS: Pantoprazole 20 mg EC Tab PO SCH (05:52)
[2017-07-30] MEDS: cefTRIAXone 2 GM IN NS 2 GM/100 ML BAG IVPB SCH (05:52)
[2017-07-30] MEDS: Insulin Reg-MEDIUM-Coverage SC SCH ×4 (06:29→21:47)
[2017-07-30] MEDS: Insulin Detemir 100 units/ml Vial (Levemir) SC SCH ×2 (08:36→21:47)
[2017-07-30] MEDS: POLYETHYLENE GLYCOL 3350 17 GM/Dose PACKET PO SCH (10:36)
--- NOTE | 2017-07-30 11:02 | CP.PCM.PN ---
<Ibeth Jimenez - Last Filed: 07/30/17 10:59> Subjective - Date & Time of Evaluation Date of Evaluation: 07/30/17 Time of Evaluation: 10:59 - Subjective Subjective: Podiatry progress note for Dr. Hurtado- 62 y/o male seen and evaluated at bedside 11 days s/p excisional debridement of gangrenous wound with incision and drainage and 1st metatarsal resection of left foot. Patient appears to be resting comfortably in his bed and is in NAD. Patient is AAOx3. Patient denies of any acute overnight events and denies of any pain to his left foot. Patient denies of any F/N/V/C/SOB/chest pain now. Patient denies any other pedal complaints at this time. Objective - Vital Signs/Intake and Output Vital Signs (last 24 hours): Temp Pulse Resp BP Pulse Ox 97.3 F L 62 20 164/81 H 99 07/29/17 16:00 07/30/17 10:37 07/29/17 16:00 07/30/17 10:37 07/29/17 16:00 - Medications Medications: Current Medications Acetaminophen (Tylenol 325mg Tab) 650 mg PO Q4H PRN; Protocol PRN Reason: Pain, Mild (1-3) Amlodipine Besylate (Norvasc) 5 mg PO DAILY BABS PRN Reason: Protocol Last Admin: 07/30/17 10:36 Dose: 5 mg Aspirin (Ecotrin) 81 mg PO 0800 BABS PRN Reason: Protocol Last Admin: 07/30/17 08:32 Dose: 81 mg Collagenase (Santyl) 0 gm TOP DAILY BABS PRN Reason: Protocol Escitalopram Oxalate (Lexapro) 20 mg PO DAILY BABS PRN Reason: Protocol Last Admin: 07/30/17 10:36 Dose: 20 mg Fluconazole (Diflucan) 100 mg PO 0800 BABS PRN Reason: Protocol Last Admin: 07/30/17 08:32 Dose: 100 mg Fluconazole (Diflucan) 100 mg PO DAILY BABS PRN Reason: Protocol Last Admin: 07/29/17 10:00 Dose: Not Given Ceftriaxone Sodium (Rocephin 2 Gm Ivpb) 2 gm in 100 mls @ 100 mls/hr IVPB 0600 BABS PRN Reason: Protocol Last Admin: 07/30/17 05:52 Dose: 100 mls/hr Insulin Detemir (Levemir) 30 unit SC ACBHS BABS PRN Reason: Protocol Last Admin: 07/30/17 08:36 Dose: Not Given Insulin Human Regular (Humulin R Med) 0 units SC ACHS BABS PRN Reason: Protocol Last Admin: 07/30/17 06:29 Dose: Not Given Levetiracetam (Keppra) 500 mg PO BID BABS PRN Reason: Protocol Last Admin: 07/30/17 10:35 Dose: 500 mg Lisinopril (Zestril) 20 mg PO DAILY BABS PRN Reason: Protocol Last Admin: 07/30/17 10:37 Dose: 20 mg Metoprolol Tartrate (Lopressor) 50 mg PO 0800,1800 [facility] PRN Reason: Protocol Last Admin: 07/30/17 08:36 Dose: 50 mg Ondansetron HCl (Zofran Inj) 4 mg IVP ONCE PRN; Protocol PRN Reason: Nausea/Vomiting Pantoprazole Sodium (Protonix Ec Tab) 20 mg PO 0600 [facility] PRN Reason: Protocol Last Admin: 07/30/17 05:52 Dose: 20 mg Polyethylene Glycol (Miralax) 17 gm PO DAILY [facility] PRN Reason: Protocol Last Admin: 07/30/17 10:36 Dose: Not Given Trazodone HCl (Desyrel) 25 mg PO HS [facility] PRN Reason: Protocol Last Admin: 07/29/17 21:53 Dose: 25 mg - Labs Labs: 07/28/17 11:01 07/26/17 08:30 - Constitutional Appears: Well, Non-toxic, No Acute Distress - Extremities Exam Additional comments: Left foot focused exam: VASC: DP/PT pulses are palpable, Cap Refill time: < 4 sec to all digits, Temp gradient: warm to cool from proximal to distal, mild non-pitting edema noted on the distal foot DERM: surgical incision located dorsum of the left foot with sutures intact, skin co-apted with no dehiscence noted; plantar wound measuring approximately 3.0 cm x 3.5 cm with deep deficit on the plantar aspect at the level of 1st metatarsal head noted; wound base appears mix fibrous and granular in nature with no active drainage at the moment, no active malodor, no purulence, no fluctunce, minimal surrounding erythema, skin color has to the left hallux has returned WNL, tendon exposed, Sanguinous drainage expressed. NEURO: Protective sensation is grossly diminished ORTHO: no pain on palpation of the surgical site or plantar wound - Neurological Exam Neurological Exam: Alert, Awake, Oriented x3 - Psychiatric Exam Psychiatric exam: Normal Affect, Normal Mood Assessment and Plan - Assessment and Plan (Free Text) Assessment: 62 y/o male seen and evaluated at bedside 11 days s/p excisional debridement of gangrenous wound with incision and drainage and 1st metatarsal resection of left foot Plan: Patient seen and evaluated at bedside discussed in detail with attending Dr. Hurtado Wound dressed with santyl, saline, ABD, DSD, LUI Labs and vitals reviewed; afebrile Continue with IV abx Wound care daily by podiatry Continue OT/PT Podiatry to follow patient while patient remains in house <Josh Hurtado - Last Filed: 07/31/17 08:32> Objective - Vital Signs/Intake and Output Vital Signs (last 24 hours): Temp Pulse Resp BP Pulse Ox 99.1 F 60 20 169/52 H 98 07/31/17 07:00 07/31/17 07:00 07/31/17 07:00 07/31/17 07:00 07/31/17 06:00 - Medications Medications: Current Medications Acetaminophen (Tylenol 325mg Tab) 650 mg PO Q4H PRN; Protocol PRN Reason: Pain, Mild (1-3) Amlodipine Besylate (Norvasc) 5 mg PO DAILY BABS PRN Reason: Protocol Last Admin: 07/30/17 10:36 Dose: 5 mg Aspirin (Ecotrin) 81 mg PO 0800 [facility]ABS PRN Reason: Protocol Last Admin: 07/31/17 08:22 Dose: 81 mg Collagenase (Santyl) 0 gm TOP DAILY BABS PRN Reason: Protocol Escitalopram Oxalate (Lexapro) 20 mg PO DAILY BABS PRN Reason: Protocol Last Admin: 07/30/17 10:36 Dose: 20 mg Fluconazole (Diflucan) 100 mg PO 0800 [facility] PRN Reason: Protocol Last Admin: 07/31/17 08:21 Dose: 100 mg Ceftriaxone Sodium (Rocephin 2 Gm Ivpb) 2 gm in 100 mls @ 100 mls/hr IVPB 0600 [facility]S PRN Reason: Protocol Last Admin: 07/31/17 05:12 Dose: 100 mls/hr Insulin Detemir (Levemir) 30 unit SC ACBHS BABS PRN Reason: Protocol Last Admin: 07/31/17 06:54 Dose: 30 unit Insulin Human Regular (Humulin R Med) 0 units SC ACHS BABS PRN Reason: Protocol Last Admin: 07/31/17 06:53 Dose: 3 units Levetiracetam (Keppra) 500 mg PO BID BABS PRN Reason: Protocol Last Admin: 07/30/17 18:47 Dose: 500 mg Lisinopril (Zestril) 20 mg PO DAILY BABS PRN Reason: Protocol Last Admin: 07/30/17 10:37 Dose: 20 mg Metoprolol Tartrate (Lopressor) 50 mg PO 0800,1800 [facility] PRN Reason: Protocol Last Admin: 07/31/17 08:21 Dose: 50 mg Nystatin (Mycostatin Cream) 0 ea TOP BID BABS PRN Reason: Protocol Last Admin: 07/30/17 18:48 Dose: 1 cre Ondansetron HCl (Zofran Inj) 4 mg IVP ONCE PRN; Protocol PRN Reason: Nausea/Vomiting Pantoprazole Sodium (Protonix Ec Tab) 20 mg PO 0600 [facility]ABS PRN Reason: Protocol Last Admin: 07/31/17 05:12 Dose: 20 mg Polyethylene Glycol (Miralax) 17 gm PO DAILY BABS PRN Reason: Protocol Last Admin: 07/30/17 10:36 Dose: Not Given Trazodone HCl (Desyrel) 25 mg PO HS BABS PRN Reason: Protocol Last Admin: 07/30/17 21:08 Dose: 25 mg - Labs Labs: 07/28/17 11:01 07/26/17 08:30 Attending/Attestation - Attestation I have personally seen and examined this patient.: Yes I have fully participated in the care of the patient.: Yes I have reviewed all pertinent clinical information, including history, physical exam and plan: Yes
--- NOTE | 2017-07-30 11:41 | PN ---
DATE: 07/30/2017 SUBJECTIVE: The patient is seen early this morning in no acute distress. OBJECTIVE: VITAL SIGNS: Temperature of 97, blood pressure is 140/70, and respiratory rate of 18. HEENT: Unremarkable. NECK: Supple. LUNGS: Decreased breath sounds. HEART: Normal S1 and S2. ABDOMEN: Soft and nontender. LABORATORY DATA: Reveals a white count of 7.8 and hemoglobin of 11. Sed rate is 110. Chemistries are noted. BUN of 21 and creatinine of 0.9. Left foot culture is pending. Review of orders reveals the patient to be on fluconazole and ceftriaxone. ASSESSMENT AND PLAN: This is a 62-year-old male with sepsis with left foot infection and cellulitis with methicillin-susceptible Staphylococcus aureus and Streptococcus sanguinis, status post incision and drainage and metatarsal resection in a patient with a history of methicillin-resistant Staphylococcus aureus, history of corynebacterium CDC group G bacteremia, mitral valve endocarditis, status post mitral valve replacement, and also history of extended-spectrum beta-lactamases Klebsiella urinary tract infection. The patient is currently on ceftriaxone with two more days of ceftriaxone. Pathology is reviewed. Lino Freeman MD
[2017-07-30] MEDS: Nystatin 100,000 Units/gm Cream(15 gm) TOP SCH (18:48)
[2017-07-31] MEDS: cefTRIAXone 2 GM IN NS 2 GM/100 ML BAG IVPB SCH (05:12)
[2017-07-31] MEDS: Pantoprazole 20 mg EC Tab PO SCH (05:12)
[2017-07-31] MEDS: Insulin Reg-MEDIUM-Coverage SC SCH ×4 (06:53→21:53)
[2017-07-31] MEDS: Insulin Detemir 100 units/ml Vial (Levemir) SC SCH ×2 (06:54→21:53)
[2017-07-31] MEDS: POLYETHYLENE GLYCOL 3350 17 GM/Dose PACKET PO SCH (09:41)
[2017-07-31] MEDS: Collagenase 250 Units/gm Ointment(30 gm) TOP SCH (09:42)
[2017-07-31] MEDS: Nystatin 100,000 Units/gm Cream(15 gm) TOP SCH ×2 (09:43→17:03)
--- NOTE | 2017-07-31 09:45 | PN ---
DATE: SUBJECTIVE: A 62-year-old diabetic male seen at bedside for continued evaluation and management of the resected left first metatarsal secondary to diabetic gangrenous infected foot ulcer. The patient is resting comfortably, denies any pain. The patient's vital signs revealed a temperature of 99.1, pulse rate of 60, blood pressure of 169/52, respiratory rate of 20. Laboratory findings reveal a white count of 7.8, hemoglobin 11.4, hematocrit of 35, platelet count of 335, and his ESR remains elevated at 110. Most recent microbiology report taken on 07/29/2017, reveals many polymorphonuclear white blood cells, no organisms seen preliminarily. OBJECTIVE: Weakly palpable pedal pulses noted bilaterally. Dorsal incision site remains well coapted with no signs of dehiscence. Plantar aspect of the left foot at the surgical site of the first metatarsal head resection presents with a large full thickness ulceration. The base of the ulceration is primarily granular; however, there is still some fibrotic tissue dispersed throughout the wound. There is noted to be no purulence. There is no malodor. There is serous drainage only, moderate in amount. The area is not edematous or erythematous. ASSESSMENT: Status post left first metatarsal head resection secondary to gangrenous infected left foot ulceration. PLAN: The patient's wound was washed with normal sterile saline and application of Santyl ointment, Xeroform, and a dry sterile dressing was applied. The patient is set for discharge tomorrow. He will continue to ambulate using the forefoot offloading shoe. We will continue with p.o. antibiotics as per Infectious Disease. The patient will need visiting nurses to come to his home twice a week and he will follow up at the wound center once a week for dressing changes. Discussed at length with the patient that he may need additional surgery in the near future if his wound and increases in severity. The patient was told to call the office immediately if he has any concerns when at home. The patient will be seen and followed until discharge. Case management will need to set up visiting nurse service to come to his home twice a week and he will be seen once a week in wound care. Josh Hurtado DPM
--- NOTE | 2017-07-31 10:17 | PN ---
SUBJECTIVE: A 62-year-old white male with status post surgery for a left diabetic foot infection. The patient has been afebrile. Vital signs are stable. He is seen in the gym today at [facility] doing physical therapy and occupational therapy. He is completed his course of IV antibiotics. His blood sugars have better controlled. PHYSICAL EXAMINATION: VITAL SIGNS: His temperature is 99.1, blood pressure 169/52. LABORATORY DATA: Blood sugar 145. White count of 7.8, hemoglobin 11.4. IMPRESSION: The patient is doing well. The rashes subsided with Diflucan. He is finishing the course of antibiotics. He has a sensitive Staphylococcus aureus in his foot and he has status post metatarsal removal and debridement of the left foot. PLAN: Plan is for most likely discharge in the morning. admitted to 07/18/17 discharger to [facility] 07/24/17 Hayden Gutierrez MD MTDD
[2017-07-31 15:49] VITALS: RESP 18; O2SAT 97
--- NOTE | 2017-07-31 18:23 | CP.PCM.PN ---
Subjective - Date & Time of Evaluation Date of Evaluation: 07/31/17 Time of Evaluation: 17:55 - Subjective Subjective: Afebrile, not in distress. Objective - Vital Signs/Intake and Output Vital Signs (last 24 hours): Temp Pulse Resp BP Pulse Ox 97.6 F 75 18 149/76 97 07/31/17 15:49 07/31/17 15:49 07/31/17 15:49 07/31/17 15:49 07/31/17 15:49 - Medications Medications: Current Medications Acetaminophen (Tylenol 325mg Tab) 650 mg PO Q4H PRN; Protocol PRN Reason: Pain, Mild (1-3) Amlodipine Besylate (Norvasc) 5 mg PO DAILY BABS PRN Reason: Protocol Last Admin: 07/31/17 09:43 Dose: 5 mg Aspirin (Ecotrin) 81 mg PO 0800 BABS PRN Reason: Protocol Last Admin: 07/31/17 08:22 Dose: 81 mg Collagenase (Santyl) 0 gm TOP DAILY BABS PRN Reason: Protocol Last Admin: 07/31/17 09:42 Dose: 1 applic Escitalopram Oxalate (Lexapro) 20 mg PO DAILY BABS PRN Reason: Protocol Last Admin: 07/31/17 09:41 Dose: 20 mg Fluconazole (Diflucan) 100 mg PO 0800 BABS PRN Reason: Protocol Last Admin: 07/31/17 08:21 Dose: 100 mg Ceftriaxone Sodium (Rocephin 2 Gm Ivpb) 2 gm in 100 mls @ 100 mls/hr IVPB 0600 BABS PRN Reason: Protocol Last Admin: 07/31/17 05:12 Dose: 100 mls/hr Insulin Detemir (Levemir) 30 unit SC ACBHS BABS PRN Reason: Protocol Last Admin: 07/31/17 06:54 Dose: 30 unit Insulin Human Regular (Humulin R Med) 0 units SC ACHS BABS PRN Reason: Protocol Last Admin: 07/31/17 11:51 Dose: 3 units Levetiracetam (Keppra) 500 mg PO BID BABS PRN Reason: Protocol Last Admin: 07/31/17 09:41 Dose: 500 mg Lisinopril (Zestril) 20 mg PO DAILY BABS PRN Reason: Protocol Last Admin: 07/31/17 09:42 Dose: 20 mg Metoprolol Tartrate (Lopressor) 50 mg PO 0800,1800 BABS PRN Reason: Protocol Last Admin: 07/31/17 08:21 Dose: 50 mg Nystatin (Mycostatin Cream) 0 ea TOP BID BABS PRN Reason: Protocol Last Admin: 07/31/17 09:43 Dose: 1 applic Ondansetron HCl (Zofran Inj) 4 mg IVP ONCE PRN; Protocol PRN Reason: Nausea/Vomiting Pantoprazole Sodium (Protonix Ec Tab) 20 mg PO 0600 BABS PRN Reason: Protocol Last Admin: 07/31/17 05:12 Dose: 20 mg Polyethylene Glycol (Miralax) 17 gm PO DAILY BABS PRN Reason: Protocol Last Admin: 07/31/17 09:41 Dose: 17 gm Trazodone HCl (Desyrel) 25 mg PO HS BABS PRN Reason: Protocol Last Admin: 07/30/17 21:08 Dose: 25 mg - Labs Labs: 07/28/17 11:01 07/26/17 08:30 - Constitutional Appears: Non-toxic, No Acute Distress - Head Exam Head Exam: NORMAL INSPECTION - ENT Exam ENT Exam: Mucous Membranes Moist - Neck Exam Neck Exam: absent: Meningismus - Respiratory Exam Respiratory Exam: Decreased Breath Sounds - Cardiovascular Exam Cardiovascular Exam: +S1, +S2 - GI/Abdominal Exam GI & Abdominal Exam: Soft. absent: Tenderness Assessment and Plan - Assessment and Plan (Free Text) Plan: Assessment sepsis due to left foot infection/ cellulitis with MSSA and Strep anginosus S/P I and D and metatarsal resection history of MRSA bacteremia with infection of the right lower extremity with probable osteomyelitis S/P tenotomy History of Corynebacterium, Grp G strep bacteremia and mitral valve endocarditis S/P valve surgery and replacement ESBL Klebsiella in the urine DM HTN history of alcohol abuse Plan Continue Rocephin for 1 more day - as discussed with Dr. Hurtado, pathology of bone shows osteomyelitis but margins are clear - MRI did not show osteomyelitis as well will continue to follow clinically
[2017-08-01] MEDS: Insulin Reg-MEDIUM-Coverage SC SCH ×2 (06:30→11:35)
[2017-08-01] MEDS: Pantoprazole 20 mg EC Tab PO SCH (06:31)
[2017-08-01] MEDS: Insulin Detemir 100 units/ml Vial (Levemir) SC SCH (06:31)
[2017-08-01 10:10] VITALS: BP 127/75; PULSE 62; TEMP 98.1
--- NOTE | 2017-08-01 10:43 | PN ---
DATE: 08/01/2017 SUBJECTIVE: A 62-year-old diabetic male seen at bedside for continued evaluation and management. We resected left third metatarsal secondary to infected gangrenous diabetic left foot ulceration. The patient is resting comfortably, has no new complaints, however, he was in the bathroom and walked from the bathroom and back to his bed without any forefoot offloading wedge shoe on. I spoke to Alec at length and the need to wear the forefoot shoe at all times when ambulating even if it is to get up and go to the bathroom or get up and get his phone from across the room. He was told that we need to keep the weight off of the area where the wound will not heal. He states he understands. He is set for discharge today. We are trying to arrange visiting nurses to come to his house twice a week for dressing changes and to follow up with the wound center once weekly. OBJECTIVE: Weakly palpable pedal pulses noted bilaterally. Left foot presents with a full-thickness ulceration at the plantar aspect of the first metatarsal phalangeal joint. The base of the ulcer is now primarily granular with decreasing fibrotic tissue. There is noted to be no malodor, no purulence, moderate serous drainage only. There is no edema or erythema to suggest cellulitis or ascending cellulitis. The incision site on the dorsal aspect of the first metatarsal phalangeal joint remains intact, well coapted with no signs of dehiscence. ASSESSMENT: Status post left foot first metatarsal head resection secondary to gangrenous infected left foot ulceration. PLAN: Discussed at length once again prior to leaving the room with Alec that he needs to use his forefoot offloading shoe at all times when ambulating. He was told not to take one step without the shoe on and to keep it at bedside or where ever he is going to be at all times so he has access to it. We will cleanse the wound with chlorhexidine solution and applied Santyl and dry sterile dressing. Visiting nurse services need to be set up to come to his house twice weekly for the following dressing changes. Cleanse the wound with normal sterile saline, apply Santyl ointment, apply Xeroform gauze, apply sterile 4 x 4, apply sterile abdominal pads and Kerlix with an Kostas wrap. He will follow up at the wound center weekly. Recommend 1 week of p.o. antibiotics upon discharge. Josh Hurtado DPM
[2017-08-01] MEDS: Nystatin 100,000 Units/gm Cream(15 gm) TOP SCH (11:37)
[2017-08-01] MEDS: POLYETHYLENE GLYCOL 3350 17 GM/Dose PACKET PO SCH (11:37)
[2017-08-01] MEDS: Collagenase 250 Units/gm Ointment(30 gm) TOP SCH (11:38)
--- NOTE | 2017-08-01 12:37 | CP.PCM.PN ---
Subjective - Date & Time of Evaluation Date of Evaluation: 08/01/17 Time of Evaluation: 11:30 - Subjective Subjective: Comfortable, not in distress, afebrile. Objective - Vital Signs/Intake and Output Vital Signs (last 24 hours): Temp Pulse Resp BP Pulse Ox 97.6 F 60 18 119/63 97 07/31/17 17:42 08/01/17 08:51 07/31/17 17:42 08/01/17 08:51 07/31/17 17:42 - Medications Medications: Current Medications Acetaminophen (Tylenol 325mg Tab) 650 mg PO Q4H PRN; Protocol PRN Reason: Pain, Mild (1-3) Amlodipine Besylate (Norvasc) 5 mg PO DAILY BABS PRN Reason: Protocol Last Admin: 07/31/17 09:43 Dose: 5 mg Aspirin (Ecotrin) 81 mg PO 0800 BABS PRN Reason: Protocol Last Admin: 08/01/17 08:50 Dose: 81 mg Collagenase (Santyl) 0 gm TOP DAILY BABS PRN Reason: Protocol Last Admin: 07/31/17 09:42 Dose: 1 applic Escitalopram Oxalate (Lexapro) 20 mg PO DAILY BABS PRN Reason: Protocol Last Admin: 07/31/17 09:41 Dose: 20 mg Fluconazole (Diflucan) 100 mg PO 0800 BABS PRN Reason: Protocol Last Admin: 08/01/17 08:50 Dose: 100 mg Insulin Detemir (Levemir) 30 unit SC ACBHS BABS PRN Reason: Protocol Last Admin: 08/01/17 06:31 Dose: 30 unit Insulin Human Regular (Humulin R Med) 0 units SC ACHS BABS PRN Reason: Protocol Last Admin: 08/01/17 06:30 Dose: 1 units Levetiracetam (Keppra) 500 mg PO BID BABS PRN Reason: Protocol Last Admin: 07/31/17 17:02 Dose: 500 mg Lisinopril (Zestril) 20 mg PO DAILY BABS PRN Reason: Protocol Last Admin: 07/31/17 09:42 Dose: 20 mg Metoprolol Tartrate (Lopressor) 50 mg PO 0800,1800 BABS PRN Reason: Protocol Last Admin: 08/01/17 08:51 Dose: 50 mg Nystatin (Mycostatin Cream) 0 ea TOP BID BABS PRN Reason: Protocol Last Admin: 07/31/17 17:03 Dose: 1 applic Ondansetron HCl (Zofran Inj) 4 mg IVP ONCE PRN; Protocol PRN Reason: Nausea/Vomiting Pantoprazole Sodium (Protonix Ec Tab) 20 mg PO 0600 BABS PRN Reason: Protocol Last Admin: 08/01/17 06:31 Dose: 20 mg Polyethylene Glycol (Miralax) 17 gm PO DAILY [facility]B PRN Reason: Protocol Last Admin: 07/31/17 09:41 Dose: 17 gm Trazodone HCl (Desyrel) 25 mg PO HS BABS PRN Reason: Protocol Last Admin: 07/31/17 21:49 Dose: 25 mg - Labs Labs: 07/28/17 11:01 07/26/17 08:30 - Constitutional Appears: Non-toxic - Head Exam Head Exam: NORMAL INSPECTION - ENT Exam ENT Exam: Mucous Membranes Moist - Neck Exam Neck Exam: absent: Meningismus - Respiratory Exam Respiratory Exam: Decreased Breath Sounds - Cardiovascular Exam Cardiovascular Exam: +S1, +S2 - GI/Abdominal Exam GI & Abdominal Exam: Soft. absent: Tenderness - Extremities Exam Additional comments: left foot with dressings in place Assessment and Plan - Assessment and Plan (Free Text) Plan: Assessment sepsis due to left foot infection/ cellulitis with MSSA and Strep anginosus S/P I and D and metatarsal resection, S/P treatment with antibiotics history of MRSA bacteremia with infection of the right lower extremity with probable osteomyelitis S/P tenotomy History of Corynebacterium, Grp G strep bacteremia and mitral valve endocarditis S/P valve surgery and replacement ESBL Klebsiella in the urine DM HTN history of alcohol abuse Plan completed course of Rocephin - will continue to monitor off antibiotics while the patient is in the hospital since he is at risk for nosocomial infections - as discussed with Dr. Hurtado, pathology of bone shows osteomyelitis but margins are clear - MRI did not show osteomyelitis as well
--- NOTE | 2017-08-02 09:40 | DS ---
HISTORY OF PRESENT ILLNESS: A 62-year-old white male transferred from [facility] to [facility]. The patient continued physical therapy, occupational therapy. He also received IV antibiotics for a left foot diabetic foot infection. The patient was transferred on 07/25/2017 and discharged on 08/01/2017. Vital signs are stable. The patient was off antibiotics. She did have a maculopapular rash, possibly secondary to Rocephin, which was discontinued; he also received several doses of Diflucan with some improvement of the rash. The patient will be discharged home in improved condition on blood sugar and blood pressure control. Continue wound treatment and outpatient wound therapy. FINAL DISCHARGE DIAGNOSES: Deconditioning, insulin-dependent diabetes mellitus, hypertension, diabetic neuropathy, diabetic peripheral vascular disease, diabetic left foot infection. Hayden Gutierrez MD
== END 2017-08-01 16:37 | disposition home or self-care (01) | DRG 300 ==
LOC: TRCU 20:20
PROVIDERS: ADMIT Internal Medicine; ATTEND Internal Medicine
PROC: F07Z9FZ Gait Training/Functional Ambulation Treatment using Assistive, Adaptive, Supportive or Protective Equipment (ICD-10-PCS; principal; 2017-07-25)
PROC: F08Z4FZ Home Management Treatment using Assistive, Adaptive, Supportive or Protective Equipment (ICD-10-PCS; 2017-07-25)
DX: E11.52 Type 2 diabetes mellitus with diabetic peripheral angiopathy with gangrene (principal); E11.42 Type 2 diabetes mellitus with diabetic polyneuropathy; E11.621 Type 2 diabetes mellitus with foot ulcer; L03.116 Cellulitis of left lower limb; M86.9 Osteomyelitis, unspecified; E11.69 Type 2 diabetes mellitus with other specified complication; E11.40 Type 2 diabetes mellitus with diabetic neuropathy, unspecified; Z79.2 Long term (current) use of antibiotics; I10 Essential (primary) hypertension; E11.65 Type 2 diabetes mellitus with hyperglycemia; I25.10 Atherosclerotic heart disease of native coronary artery without angina pectoris; L97.529 Non-pressure chronic ulcer of other part of left foot with unspecified severity; K21.9 Gastro-esophageal reflux disease without esophagitis; G51.0 Bell's palsy; L27.0 Generalized skin eruption due to drugs and medicaments taken internally; T36.1X5A Adverse effect of cephalosporins and other beta-lactam antibiotics, initial encounter; Z98.890 Other specified postprocedural states; Z79.4 Long term (current) use of insulin; Z86.73 Personal history of transient ischemic attack (TIA), and cerebral infarction without residual deficits; Z95.2 Presence of prosthetic heart valve; Z95.1 Presence of aortocoronary bypass graft; Z90.49 Acquired absence of other specified parts of digestive tract; Z87.891 Personal history of nicotine dependence

== ENCOUNTER 2017-07-25 21:00 | Day surgery (SDC) | payer MEDICARE, OTHER | END 2017-07-25 21:30 | LOC: SDSVAS 21:00 | PROVIDERS: ATTEND Radiology Vascular & Interventional Radiology | DX: R53.1 Weakness (principal); D72.829 Elevated white blood cell count, unspecified ==

== ENCOUNTER 2017-08-16 11:31 | Inpatient (IN) | payer MEDICARE, OTHER ==
[2017-08-16 11:31] VITALS: PULSE 135
--- NOTE | 2017-08-16 11:58 | ED PDOC ---
Arrival/HPI - General Chief Complaint: Lower Extremity Problem/Injury Time Seen by Provider: 08/16/17 11:32 Historian: Patient - History of Present Illness Narrative History of Present Illness (Text): 08/16/17 11:57 A 62 year old male, whose past medical history includes diabetes, neuropathy, sent into the emergency department by broadcast correspondent for worsening left foot ulceration. reports patients infection began 5 months ago and recently had surgery on 07/19/17. Wound has not been improving and Dr. Mercado is concerned for osteo. Requests to start patient on antibiotic Telfaro, obtain b/l lower extremity dopplers, MRI and a consult with Dr. Shay. Patient denies any pain or discomfort at this time. Patient denies any fever, chills, nausea, vomiting, abdominal pain, chest pain, shortness of breath, cough, headache, dizziness or any other complaints. PMD: Dr. Gutierrez Machinery Erector: Dr. Mercado Time/Duration: > month Symptom Course: Unchanged Quality: Other Context: Other Past Medical History - Provider Review Nursing Documentation Reviewed: Yes - Infectious Disease Hx of Infectious Diseases: None - Tetanus Immunization Tetanus Immunization: Unknown - Cardiac Hx Pacemaker: No - Pulmonary Hx Respiratory Disorders: No Hx Pneumonia: Yes - Neurological Hx Neurological Disorder: Yes HX Cerebrovascular Accident: Yes (x3) Other/Comment: Diabetic Neuropathy. expressive aphasia - HEENT Hx HEENT Disorder: No - Renal Hx Renal Disorder: No - Endocrine/Metabolic Hx Endocrine Disorders: Yes Hx Diabetes Mellitus Type 2: Yes - Hematological/Oncological Hx Blood Disorders: No - Integumentary Hx Dermatological Disorder: No Other/Comment: diabetic foot infections - Musculoskeletal/Rheumatological Hx Falls: Yes - Gastrointestinal Hx Gastrointestinal Disorders: Yes Hx Gastroesophageal Reflux: Yes - Genitourinary/Gynecological Hx Reproductive Disorders: No - Psychiatric Hx Psychophysiologic Disorder: No Hx Substance Use: No - Surgical History Hx Mastectomy: No - Anesthesia Hx Anesthesia: Yes Hx Anesthesia Reactions: No Hx Malignant Hyperthermia: No - Suicidal Assessment Feels Threatened In Home Enviroment: No Family/Social History - Physician Review Nursing Documentation Reviewed: Yes Family/Social History: No Known Family HX Smoking Status: Former Smoker Hx Alcohol Use: No Hx Substance Use: No Hx Substance Use Treatment: No Allergies/Home Meds Allergies/Adverse Reactions: Allergies vancomycin Adverse Reaction (Verified 08/16/17 11:50) RASH Keiry Home Medications: Home Meds Medication Instructions Recorded Confirmed Escitalopram [Lexapro] 20 mg PO DAILY 07/20/15 07/30/17 Tamsulosin HCl [Flomax] 0.4 mg PO HS 07/20/15 07/30/17 Aspirin [Adult Low Dose Aspirin EC] 81 mg PO HS 12/30/15 07/30/17 Linagliptin [Tradjenta] 5 mg PO DAILY 12/30/15 07/30/17 levETIRAcetam [Keppra] 500 mg PO BID 12/30/15 07/30/17 traZODone [Desyrel] 25 mg PO HS 12/30/15 07/30/17 Review of Systems - Physician Review All systems were reviewed & negative as marked: Yes - Review of Systems Constitutional: absent: Fatigue, Weight Change, Fevers, Night Sweats Eyes: absent: Vision Changes Respiratory: absent: SOB, Cough Cardiovascular: absent: Chest Pain, Palpitations, Edema Gastrointestinal: absent: Abdominal Pain, Nausea, Vomiting Genitourinary Male: absent: Dysuria Skin: Other (Left foot ulceration) Neurological: absent: Headache, Dizziness Endocrine: absent: Diaphoresis Hemo/Lymphatic: absent: Adenopathy Psychiatric: absent: Anxiety, Depression Physical Exam Vital Signs Reviewed: Yes Vital Signs Temp Pulse Resp BP Pulse Ox 08/16/17 13:42 58 L 18 148/71 100 08/16/17 11:47 97.7 F 54 L 19 153/76 H 100 Temperature: Afebrile Blood Pressure: Hypertensive Pulse: Bradycardic Respiratory Rate: Normal Appearance: Positive for: Well-Appearing, Non-Toxic, Comfortable Pain Distress: None Mental Status: Positive for: Alert and Oriented X 3 - Systems Exam Head: Present: Atraumatic, Normocephalic Pupils: Present: PERRL Extroacular Muscles: Present: EOMI Conjunctiva: Present: Normal Mouth: Present: Moist Mucous Membranes Neck: Present: Normal Range of Motion Respiratory/Chest: Present: Clear to Auscultation, Good Air Exchange. No: Respiratory Distress, Accessory Muscle Use Cardiovascular: Present: Regular Rate and Rhythm, Murmurs, Normal S1, S2 Abdomen: Present: Normal Bowel Sounds. No: Tenderness, Distention, Peritoneal Signs Upper Extremity: Present: Normal Inspection, NORMAL PULSES. No: Cyanosis, Edema Lower Extremity: Present: Other (Exam deferred due to examination and dressing today by broadcast correspondent and concern for opening wound up to worsening infection. Per Dr. Arias, s/p 1st metatarsal amputation with surgical defect to underside of L foot, measuring 6x6 cm by 1 cm deep, tissue pale and necrotic with surrounding cellulitis. Flexor tendon necrotic and removed today)). No: CALF TENDERNESS Neurological: Present: GCS=15, CN II-XII Intact, Other (mild expressive aphasia (baseline)) Skin: No: Rashes Psychiatric: Present: Alert, Oriented x 3, Normal Insight, Normal Concentration Medical Decision Making ED Course and Treatment: 08/16/17 11:57 Impression: A 62 year old male sent in for worsening left foot ulceration. Patient denies any complaints at this time. Differential Diagnosis included but are not limited to: Plan: -- Left foot MRI -- B/l Left lower extremity ultrasound -- Labs -- Blood culture -- Telfaro -- Reassess and disposition Prior Visits: Notes and results from previous visits were reviewed. Patient had surgery on 08/[address] Josh Hurtado for excisional debridement of gangrenous wound with incision and drainage and 1st metatarsal resection of left foot. Progress Notes: EKG shows NSR at 53 with QTc 493, no ST/T changes. Interpreted by me. 08/16/17 12:[address] Mercado, reports patient has a 1st metatarsal amputation with surrounding defect 6x6 cm by 1 cm deep tissue, which is pale and necrotic with surrounding cellulitis. He notes necrotic flexor tendon was removed in office. He recently applied dressing prior to patients arrival to the emergency room. Recommends admission. 08/16/17 12:[address] Gutierrez, who is aware of and agrees with plan. - Lab Interpretations Lab Results: 08/16/17 12:21 08/16/17 12:21 Lab Results 08/16/17 12:21: WBC 8.7, RBC 4.12, Hgb 11.8 L, Hct 35.9 L, MCV 87.1, MCH 28.6, MCHC 32.9, RDW 13.3, Plt Count 199, MPV 11.8 H, Gran % 68.3 H, Lymph % (Auto) 19.4 L, Hidalgo % (Auto) 9.8 H, Eos % (Auto) 1.8, Baso % (Auto) 0.7, Gran # 5.93, Lymph # 1.7, Hidalgo # 0.9 H, Eos # 0.2, Baso # 0.06 08/16/17 12:21: Sodium 145, Potassium 4.6, Chloride 107, Carbon Dioxide 29, Anion Gap 14, BUN 23 H, Creatinine 1.1, Est GFR ( Amer) > 60, Est GFR ( Non-Af Amer) > 60, Random Glucose 141 H, Calcium 9.6, Phosphorus 3.8, Magnesium 1.6 L, Total Bilirubin 0.7, AST 27, ALT 29, Alkaline Phosphatase 90, Total Protein 7.8, Albumin 3.9, Globulin 3.9, Albumin/Globulin Ratio 1.0 L I have reviewed the lab results: Yes - RAD Interpretation Radiology Orders: 08/16/17 11:59 FOOT W/O CONTRAST LEFT [MRI] Stat 08/16/17 12:06 LOWER EXT ART NON-INV COMPL [US] Stat - Medication Orders Current Medication Orders: Discontinued Medications Ceftaroline Fosamil 400 mg/ (Sodium Chloride) 100 mls @ 100 mls/hr IVPB STAT STA PRN Reason: Protocol Stop: 08/16/17 12:56 Last Admin: 08/16/17 13:50 Dose: 100 mls/hr eMAR Start Stop Document 08/16/17 13:50 RG (Rec: 08/16/17 13:55 RG [facility]) Intravenous Solution Start Date 08/16/17 Start Time 13:55 - Scribe Statement The provider has reviewed the documentation as recorded by the Gary Mendoza Provider Scribe Attestation: All medical record entries made by the Scribe were at my direction and personally dictated by me. I have reviewed the chart and agree that the record accurately reflects my personal performance of the history, physical exam, medical decision making, and the department course for this patient. I have also personally directed, reviewed, and agree with the discharge instructions and disposition. Disposition/Present on Arrival - Present on Arrival Any Indicators Present on Arrival: No History of DVT/PE: No History of Uncontrolled Diabetes: No Urinary Catheter: No History of Decub. Ulcer: No History Surgical Site Infection Following: None - Disposition Have Diagnosis and Disposition been Completed?: Yes Diagnosis: Cellulitis, Diabetic foot ulcer Disposition: HOSPITALIZED Disposition Time: 12:08 Patient Plan: Admission Patient Problems: Current Active Problems Problem Status Onset Cellulitis Acute Diabetic foot ulcer Acute Condition: FAIR
[2017-08-16 12:29] LABS: BASO # 0.06 K/mm3 (0.0-2.0); BASO % 0.7 % (0.0-3.0); EOS # 0.2 (0.0-0.7); EOS % 1.8 % (1.5-5.0); GRAN # 5.93 (1.4-6.5); GRAN % 68.3 % (50.0-68.0); HEMATOCRIT 35.9 % (42.0-52.0); LYMPH # 1.7 (1.2-3.4); LYMPH % 19.4 % (22.0-35.0); MEAN CELL VOLUME 87.1 fl (80.0-105.0); MEAN CORPUSCULAR HEMOGLOBIN 28.6 pg (25.0-35.0); MEAN CORPUSCULAR HGB CONC 32.9 g/dl (31.0-37.0); MEAN PLATELET VOLUME 11.8 fl (7.0-11.0); MONO # 0.9 (0.1-0.6); MONO % 9.8 % (1.0-6.0); RED CELL DISTRIBUTION WIDTH 13.3 % (11.5-14.5); WHITE BLOOD COUNT 8.7 10^3/ul (4.5-11.0)
[2017-08-16 12:35] LABS: ALKALINE PHOSPHATASE 90 U/L (38-126); ALT/SGPT 29 U/L (7-56); AST/SGOT 27 U/L (17-59); BILIRUBIN,TOTAL 0.7 mg/dL (0.2-1.3); BLOOD UREA NITROGEN 23 mg/dL (7-21); CALCIUM 9.6 mg/dL (8.4-10.5); CARBON DIOXIDE 29 mmol/L (21-33); CHLORIDE 107 mmol/L (98-107); GFR AFRICAN-AMERICAN > 60; GLUCOSE,RANDOM 141 mg/dL (70-110); MAGNESIUM 1.6 mg/dL (1.7-2.2); PHOSPHOROUS 3.8 mg/dL (2.5-4.5); POTASSIUM 4.6 mmol/L (3.6-5.0); SODIUM 145 mmol/L (132-148); TOTAL PROTEIN 7.8 g/dL (5.8-8.3)
--- NOTE | 2017-08-16 14:40 | MRI ---
PROCEDURE: MRI of the left foot without contrast HISTORY: wound, eval for osteo COMPARISON: Plain films of the left foot dated 07/19/2017 TECHNIQUE: MRI of the left foot was performed in multiple planes using multiple pulse sequences. FINDINGS: The prior plain film show any amputation of the distal 1st metatarsal. The MRI study shows marrow edema within the 1st metatarsal greater than expected for simple postoperative appearance and suspicious for osteomyelitis. There is also a soft tissue fluid collection at the distal tip of the amputated metatarsal. This is suspicious for an abscess. The remaining metatarsals are on IMPRESSION: Marrow edema in the 1st metatarsal suspicious for osteomyelitis. There is also fluid collection near the tip of the amputated metatarsal suspicious for abscess.
--- NOTE | 2017-08-16 15:58 | CP.PCM.CON ---
History of Present Illness - History of Present Illness History of Present Illness: General Surgery Consult 62 y/o male with a PMHx of diabetes,diabetic neuropathy, and right first toe amputation presents with an infection of the left first metatarsal. Patient states that the infection started in April and his manager emergency department (Dr. Birch) has been managing it. Pt states three weeks ago he had the area debrided and today he had to have part of his tendon removed. Patient states he had a similar infection in his right first toe which caused him to get endocarditits, three stroked, and ultimately had the right toe amputated. Denies any fevers, chills, chest pain, SOB, Abdominal pain, N/V/D. Social - Formal smoker 1 pack per week for multiple years, former drinker for 20 years, denies illicit drugs PMHx - DM, HTN, Dyslipidimia, CVA x 3, Endocarditis, neuropathy PSHx - Mitral valve replacement, Right first toe amputation Allergies - Vancomycine Review of Systems - Review of Systems All systems: reviewed and no additional remarkable complaints except (as per HPI ) Past Patient History - Infectious Disease Hx of Infectious Diseases: None - Tetanus Immunizations Tetanus Immunization: Unknown - Past Social History Smoking Status: Former Smoker - CARDIAC Hx Pacemaker: No - PULMONARY Hx Respiratory Disorders: No Hx Pneumonia: Yes - NEUROLOGICAL Hx Neurological Disorder: Yes HX Cerebrovascular Accident: Yes (x3) Other/Comment: Diabetic Neuropathy. expressive aphasia - HEENT Hx HEENT Problems: No - RENAL Hx Chronic Kidney Disease: No - ENDOCRINE/METABOLIC Hx Endocrine Disorders: Yes Hx Diabetes Mellitus Type 2: Yes - HEMATOLOGICAL/ONCOLOGICAL Hx Blood Disorders: No - INTEGUMENTARY Hx Dermatological Problems: No Other/Comment: diabetic foot infections - MUSCULOSKELETAL/RHEUMATOLOGICAL Hx Falls: Yes - GASTROINTESTINAL Hx Gastrointestinal Disorders: Yes Hx Gastroesophageal Reflux: Yes - GENITOURINARY/GYNECOLOGICAL Hx Reproductive Disorders: No - PSYCHIATRIC Hx Psychophysiologic Disorder: No Hx Substance Use: No - SURGICAL HISTORY Hx Mastectomy: No - ANESTHESIA Hx Anesthesia: Yes Hx Anesthesia Reactions: No Hx Malignant Hyperthermia: No Meds Allergies/Adverse Reactions: Allergies Allergy/AdvReac Type Severity Reaction Status Date / Time vancomycin AdvReac RASH Verified 08/16/17 11:50 Physical Exam - Constitutional Appears: Well, Non-toxic - Head Exam Head Exam: ATRAUMATIC - Eye Exam Eye Exam: EOMI, Normal appearance - Neck Exam Neck exam: Positive for: Full Rom - Respiratory Exam Respiratory Exam: NORMAL BREATHING PATTERN - Cardiovascular Exam Cardiovascular Exam: Systolic Murmur - GI/Abdominal Exam GI & Abdominal Exam: Soft. absent: Tenderness - Extremities Exam Additional comments: Right toe amputation noted. Deep infection extending to the bone of the left first metatarsal that is 3x3 cm and 3 cm deep. When bandaging was opened there was rivera discharge that patient said is the antibiotic ointment that had been applied earlier. There is also a well healing scab on the anterior portion of left tibia. DP's and PT's noted on doppler, however left PT and SP not palable, right DP palbable TP not palable, Bilateral popliteals palpable . Results - Vital Signs Recent Vital Signs: Last Vital Signs Temp 97.7 F 08/16/17 11:47 Pulse 58 L 08/16/17 13:42 Resp 18 08/16/17 13:42 BP 148/71 08/16/17 13:42 Pulse Ox 100 08/16/17 13:42 - Labs Result Diagrams: 08/16/17 12:21 08/16/17 12:21 Assessment & Plan - Assessment and Plan (Free Text) Assessment: 62 y/o male with left first metatarsal ulcer Possible angiogram monitor pulses will discuss with Dr. Edwin Guerra PGY2
[2017-08-16 18:28] VITALS: BMI 24.6
[2017-08-16] MEDS ORDERED: Pneumococcal 23-Valent Vaccine IM ONE (18:29)
[2017-08-16] MEDS ORDERED: Influenza Vaccine 60 mcg/0.5 mL SYR (4YR UP) IM ONE (18:29)
--- NOTE | 2017-08-16 18:44 | US ---
PROCEDURE: Lower extremity ELE exam HISTORY: Peripheral vascular disease with pain and ulceration. Diabetes. Previous smoker. PHYSICIAN(S): Braeden Shay MD. FINDINGS: Comparing with the distal waveforms, the resting ABIs are inaccurate due to calcification: Right, 1.02 and left, 1.01 The brachial systolic pressures are symmetric. The high thigh pressures are noncompressible. The right high thigh PVR waveform is normal. The left high thigh PVR waveform is decreased in amplitude. This could represent left iliac occlusive disease. The calf PVR waveforms are symmetric and mildly blunted. This could represent subtle bilateral SFA occlusive disease. The ankle and metatarsal waveforms are mildly to moderately blunted. IMPRESSION: 1. Inaccurate ABIs due to calcification. 2. Possible left iliac occlusive disease. 3. Bilateral SFA occlusive disease. 4. Clinically indicated, further evaluation can be performed with CTA runoff, MRA with gadolinium runoff, or conventional arteriography
--- NOTE | 2017-08-16 19:44 | CARD ---
APPROVED REPORT EKG Measurement Heart [id number] <Conclusion> Sinus bradycardia Prolonged QT Abnormal ECG
[2017-08-16] MEDS: Insulin Detemir 100 units/ml Vial (Levemir) SC SCH (22:04)
[2017-08-16] MEDS: Insulin Reg-MEDIUM-Coverage SC SCH (22:05)
[2017-08-17] MEDS: Insulin Detemir 100 units/ml Vial (Levemir) SC SCH ×2 (08:30→21:36)
[2017-08-17] MEDS: Insulin Reg-MEDIUM-Coverage SC SCH ×4 (08:30→22:22)
[2017-08-17] MEDS: Pantoprazole 20 mg EC Tab PO SCH (09:17)
[2017-08-17] MEDS: POLYETHYLENE GLYCOL 3350 17 GM/Dose PACKET PO SCH (09:46)
[2017-08-17 11:15] LABS: INR 1.21 (0.93-1.08); PARTIAL THROMBOPLASTIN TIME 31.5 Seconds (25.1-36.5)
[2017-08-17] MEDS: Sodium Chloride 0.45% 1,000 ML IV SCH (11:26)
[2017-08-17] MEDS: Collagenase 250 Units/gm Ointment(30 gm) TOP SCH (11:26)
--- NOTE | 2017-08-17 11:53 | HP ---
DATE: HISTORY OF PRESENT ILLNESS: This is a 62-year-old white male with history of insulin-dependent diabetes mellitus with peripheral neuropathy, peripheral vascular disease, history of bilateral CVA status post subacute bacterial endocarditis with valve placement. The patient recently was discharged after having a left foot infection with metatarsal removal by Dr. Hurtado. The patient at home was found on followup at the wound clinic to have continued infection in the sole of the first metatarsal area of the left foot, purulent drainage and discharge. No fever. No chills. Outpatient MRI showed area of possible osteomyelitis. The patient also was noted to have decreased pulses and history of iliac occlusive disease in the past. The patient was admitted to the ER. PHYSICAL EXAMINATION: GENERAL: Shows a well-developed and well-nourished thin white male, in no apparent distress. HEENT: Within normal limits. HEART: Reveals sinus rhythm. No S3 or murmur. CHEST: Clear to auscultation and percussion. ABDOMEN: Benign. EXTREMITIES: No cyanosis, clubbing, or edema. There is decreased pulses and decreased warmth in the left foot. There is a open purulent defect in the ball of the left foot at the area of the first metatarsal with purulent drainage without erythema without any cellulitic changes or lymphangitic spread. There is decreased sensation of the both feet and legs. IMPRESSION: Continued diabetic foot infection, ischemic versus diabetic of the left foot, peripheral vascular disease, neuropathy, insulin-dependent diabetes mellitus, history of cerebrovascular accident. Hayden Gutierrez MD
--- NOTE | 2017-08-17 11:59 | CP.PCM.CON ---
History of Present Illness - History of Present Illness History of Present Illness: 62 year old male with PMH of MRSA bacteremia with infection of the right lower extremity with probable osteomyelitis S/P tenotomy, history of Corynebacterium, Grp G strep bacteremia and mitral valve endocarditis S/P valve surgery and replacement, ESBL Klebsiella in the urine, DM, HTN, history of alcohol abuse is admitted in [facility] because of worsening condition of his left foot area, specifically the 1st metatarsal area. He was recently here in [facility] in July 2017 and had amputation done of the 1st metatarsal and bone margins were clean then and he completed his antibiotics. He comes back to be evaluated for his circulation as well. MRI has been done which is showing 1st metatarsal osteomyelitis with abscess. Infectious Diseases consult is requested for antibiotics. He currently denies fever or chills, no nausea or vomiting, no chest pain, no SOB, no headache or dizziness, no abdominal pain, no diarrhea, no dysuria. Review of Systems - Review of Systems All systems: reviewed and no additional remarkable complaints except (as per HPI ) Past Patient History - Infectious Disease Hx of Infectious Diseases: None - Tetanus Immunizations Tetanus Immunization: Unknown - Past Social History Smoking Status: Former Smoker - CARDIAC Other/Comment: endocarditis caused cva x 3 10/15/2014 expressive aphasia, open heart sx for valve replacement with pig valve 11/03/2014 developed pneumonia post op and had tracheostomy [facility] - PULMONARY Hx Respiratory Disorders: No Hx Pneumonia: Yes (post op heart sx had tracheostomy 2014) - NEUROLOGICAL Hx Neurological Disorder: Yes HX Cerebrovascular Accident: Yes (x3 caused by endocarditis as per ) Other/Comment: Diabetic Neuropathy. expressive aphasia - HEENT Hx HEENT Problems: Yes (visually impaired) Other/Comment: pt can't see from lower right quadrant both eyes post cva's - RENAL Hx Chronic Kidney Disease: No - ENDOCRINE/METABOLIC Hx Endocrine Disorders: Yes Hx Diabetes Mellitus Type 2: Yes - HEMATOLOGICAL/ONCOLOGICAL Hx Blood Disorders: No - INTEGUMENTARY Hx Dermatological Problems: Yes (chronic diabetic foot ulcer) Other/Comment: diabetic foot infections, amputation right ft great toe, left foot wound i&d 07/19/17,1st metasarsal amputation with sx to underside of left ft 6cm x 6cm 1cm deep tissue pale necrotic with surrounding cellulitis, necrotic tendon removed today 08/16/[address] mattson office dressing intact as per ed documentation pt request dressing not be removed at present time, healing fungal rash to buttocks and groin, scar to right great toe amputation, skin discolorations lle, multiple light areas of skin to b/l arms, mid surgical chest scar, healing skin from rash to upper thighs skin slightly pink flakey skin healing skin to chest - MUSCULOSKELETAL/RHEUMATOLOGICAL Hx Arthritis: Yes Hx Falls: Yes (past) Hx Fractures: Yes (r arm as a teenager) Hx Osteoporosis: Yes Hx Unsteady Gait: Yes (walker) - GASTROINTESTINAL Hx Gastrointestinal Disorders: Yes Hx Gastroesophageal Reflux: Yes Hx Ulcer: Yes - GENITOURINARY/GYNECOLOGICAL Hx Genitourinary Disorders: No - PSYCHIATRIC Hx Psychophysiologic Disorder: No Hx Substance Use: No - SURGICAL HISTORY Hx Cholecystectomy: Yes Hx Mastectomy: No Other/Comment: left ft sx 07/19/17 - ANESTHESIA Hx Anesthesia: Yes Hx Anesthesia Reactions: No Hx Malignant Hyperthermia: No Meds Allergies/Adverse Reactions: Allergies Allergy/AdvReac Type Severity Reaction Status Date / Time vancomycin AdvReac RASH Verified 08/16/17 11:50 - Medications Medications: Current Medications Amlodipine Besylate (Norvasc) 5 mg PO DAILY [facility] Aspirin (Ecotrin) 81 mg PO HS [facility] Last Admin: 08/16/17 22:02 Dose: 81 mg Escitalopram Oxalate (Lexapro) 20 mg PO DAILY [facility] Insulin Detemir (Levemir) 30 unit SC [facility] Last Admin: 08/16/17 22:04 Dose: 30 unit Insulin Human Regular (Humulin R Med) 0 units SC [facility] PRN Reason: Protocol Last Admin: 08/16/17 22:05 Dose: Not Given Levetiracetam (Keppra) 500 mg PO BID [facility] Lisinopril (Zestril) 20 mg PO DAILY [facility] Metoprolol Tartrate (Lopressor) 50 mg PO BRKDIN [facility] Non-Formulary Medication (Linagliptin [Tradjenta]) 5 mg PO DAILY [facility] Pantoprazole Sodium (Protonix Ec Tab) 20 mg PO ACB [facility] Polyethylene Glycol (Miralax) 17 gm PO DAILY [facility] Tamsulosin HCl (Flomax) 0.4 mg PO HS [facility] Last Admin: 08/16/17 22:02 Dose: 0.4 mg Trazodone HCl (Desyrel) 25 mg PO HS [facility] Last Admin: 08/16/17 22:02 Dose: 25 mg Physical Exam - Constitutional Appears: Non-toxic - Head Exam Head Exam: NORMAL INSPECTION - ENT Exam ENT Exam: Mucous Membranes Moist - Neck Exam Neck exam: Negative for: Lymphadenopathy, Meningismus - Respiratory Exam Respiratory Exam: Decreased Breath Sounds - Cardiovascular Exam Cardiovascular Exam: +S1, +S2 - GI/Abdominal Exam GI & Abdominal Exam: Soft. absent: Tenderness - Extremities Exam Additional comments: left lower extremity with dressings in place Results - Vital Signs Recent Vital Signs: Last Vital Signs Temp 97.6 F 08/17/17 00:10 Pulse 63 08/17/17 00:10 Resp 16 08/17/17 00:10 BP 108/65 08/17/17 00:10 Pulse Ox 97 08/17/17 00:10 - Labs Result Diagrams: 08/16/17 12:21 08/16/17 12:21 Labs: Laboratory Results - last 24 hr 08/16/17 21:10 POC Glucose (mg/dL) 103 Assessment & Plan - Assessment and Plan (Free Text) Plan: Assessment left 1st metatarsal osteomyelitis with abscess, R/O peripheral arterial disease history sepsis due to left foot infection/ cellulitis with MSSA and Strep anginosus S/P I and D and metatarsal resection history of MRSA bacteremia with infection of the right lower extremity with probable osteomyelitis S/P tenotomy History of Corynebacterium, Grp G strep bacteremia and mitral valve endocarditis S/P valve surgery and replacement ESBL Klebsiella in the urine DM HTN history of alcohol abuse Plan will start patient on Teflaro pending blood, wound cx; reviewed MRI - awaiting further plans of Podiatry will monitor clinically Dr. Pineda also evaluating for PAD
--- NOTE | 2017-08-17 12:54 | PN ---
DATE: 08/17/2017 SUBJECTIVE: This is a 62-year-old diabetic [facility] he was noted to have a worsening diabetic foot ulcer. The patient had debridement several weeks ago with IV antibiotics and has been home using offloading and having visiting nurses come to do his wound. He denies any fever or chills. However, upon inspection of the wound and his past vascular reports it was noted that the patient did have iliac occlusion. He was sent into the hospital for vascular treatment after speaking with Dr. Braeden Shay, the interventional radiologist, who went over the previous CT angio as well as the arterial Doppler. The patient will be having vascular intervention as well as we got an MRI to rule out further osteomyelitis. PHYSICAL EXAMINATION: VITAL SIGNS: Show temperature of 97.6, his blood pressure is 108/65, oxygen saturation was on 97% on room air. LABORATORY FINDINGS: The patient's labs are reviewed. His white blood cell count is 8.7; however, he does have 78 on ESR, which can indicate an osteomyelitis. The patient's chemistry was also reviewed. The patient's BUN and creatinine is 23 and 1.1. However, the glucose is 141. The rest of his BMP was grossly within normal limits. Clinically, he has nonpalpable pedal pulses to the foot. There is decreased capillary refill time to the hallux at that left foot. The patient has a large ulceration on the plantar aspect of the foot. Yesterday, there was necrotic tendon, which had torn away from the wound bed, which was easily debrided out of the wound and the wound was cleaned of any devitalized tissue yesterday at the wound care center. Today, he does have a large wound at plantar aspect of the first MPJ that wound measures 4 x 4 x 1.5 cm. At the present time, there is no bone in the wound and the tissue is a very pale granular tissue. A cellulitis, which was noted yesterday, has improved with IV antibiotics the patient has been receiving. The patient also had an extremity Doppler that Doppler shows that the patient has 1.02 right and 1.01 on the left, but they are inaccurate secondary to calcification. The cast PVRs are symmetrical and mildly blunted representing subtle bilateral SFA occlusive disease. The ankle and metatarsal waveforms are also [id number] blunted. The previous ultrasound as well as CT angio did show possible iliac occlusion. The patient also had an MRI done, a repeat MRI; this MRI shows that there is marrow edema to the resected end of the first metatarsal at the distal portion and there seems to be a soft tissue fluid collection at the distal tip of that amputated metatarsal suspicious for an abscess. The wound was probed at this encounter and no abscess was seen. There is multiloculated granulation tissue over that metatarsal, which may be the side of that collection in the foot. ASSESSMENT: Diabetic with neuropathy, peripheral vascular disease, and possible osteomyelitis of the first metatarsal. In lieu of the fact that the patient has a history of endocarditis, the patient will need antibiotics. Infectious Disease had been consulted and has suggested four to six weeks of IV antibiotics thus a PICC line will be inserted. I did speak with Dr. Braeden Shay as noted above. I also spoke with Dr. Eneida Pineda, the vascular surgeon, both of who have examined this patient. The patient will need some vascular intervention and then hopefully after that he may be able to be discharged to home. No surgical intervention is being planned at this visit. Destiney Mercado DPM
--- NOTE | 2017-08-17 13:40 | PN ---
DATE: SUBJECTIVE: This is a 62-year-old white male admitted with a diabetic foot infection. The patient is seen with Dr. Mercado this morning at bedside. The wound is covered. There is purulent drainage from the ball of the first metatarsal area of the left foot. The patient is status post MRI showing osteomyelitis. The patient will be evaluated by Dr. Braeden Shay and Dr. Pineda for peripheral vascular disease. He is on IV antibiotics. He is also on blood sugar coverage and blood pressure control. The patient is awake, alert, and oriented x3. Neurological examination is grossly intact except for peripheral neuropathy and some dysarthria. PLAN: Plan is to continue IV antibiotics, workup for peripheral vascular disease, and continue control of his blood pressure and diabetes. Hayden Gutierrez MD
--- NOTE | 2017-08-17 15:52 | US ---
PROCEDURE: Bilateral carotid artery duplex ultrasound HISTORY: Carotid stenosis PHYSICIAN(S): Braeden Shay MD. TECHNIQUE: Duplex sonography and color-flow Doppler were used to evaluate the carotid bifurcations and limited segments of the vertebral arteries bilaterally. FINDINGS: There is moderate to extensive focal echogenic plaque noted at the carotid bifurcations bilaterally. The peak systolic velocity in the proximal right internal carotid artery is 121 cm/sec. This corresponds to a 40-59 percent proximal right ICA stenosis. Mildly elevated systolic velocities are noted in the proximal right external carotid artery. There is blunted antegrade flow in the right vertebral artery. The peak systolic velocity in the proximal left internal carotid artery is 255 cm/sec. The end-diastolic velocity at this location is 53 cm/second. This corresponds to a 70 percent proximal left ICA stenosis. Mildly elevated systolic velocities are noted in the proximal left external carotid artery. There is antegrade antegrade flow in the dominant left vertebral artery. IMPRESSION: 1. 70 percent proximal left ICA stenosis 2. 40-59 percent proximal right ICA stenosis 3. Antegrade flow in both vertebral arteries.
--- NOTE | 2017-08-17 15:56 | US ---
PROCEDURE: Duplex arterial ultrasound of the left lower extremity HISTORY: Peripheral vascular disease with ischemic ulceration left foot. PHYSICIAN(S): Braeden Shay MD. FINDINGS: Diffuse heterogeneous atherosclerotic cysts is seen throughout the visualized arteries. The left common femoral artery is patent without significantly elevated velocities. Elevated velocities are noted at the origin of the left profunda femoral artery. This is consistent with 50-99 percent left profunda femoral artery origin stenosis. Borderline elevated velocities are noted in the proximal left SFA. This could represent greater than 50 percent stenosis. There is a critical stenosis in the distal left SFA. The left popliteal artery is patent with mild atherosclerotic disease and a biphasic waveform. The tibial arteries are not adequately evaluated. IMPRESSION: 1. Critical stenosis in the distal left SFA 2. 50-99 percent stenosis in the left profunda femoral artery origin. 3. Borderline stenosis in the proximal left SFA. 4. The tibial arteries are not adequately visualized.
[2017-08-17] MEDS: Non Formulary Medication (Linagliptin [Tradjenta] 5 MG) PO SCH (18:40)
[2017-08-18] MEDS ORDERED: Midazolam 2 MG/2 ML VIAL ONE ×3 (06:48→08:32)
[2017-08-18] MEDS ORDERED: Lidocaine 2% Inj (20ml) ONE ×2 (06:48→09:09)
[2017-08-18] MEDS ORDERED: Iodixanol 320 MG/ML 200 ML BOTTLE IV ONE (06:49)
[2017-08-18] MEDS ORDERED: Iodixanol 320 MG/ML 100 ML BOTTLE IV ONE ×2 (06:49→08:33)
[2017-08-18] MEDS ORDERED: Nitroglycerin 50mg in D5W 50 MG/250 ML BOTTLE IV ONE (06:49)
[2017-08-18] MEDS: Insulin Detemir 100 units/ml Vial (Levemir) SC SCH ×2 (07:00→21:36)
[2017-08-18] MEDS: Insulin Reg-MEDIUM-Coverage SC SCH ×4 (07:00→22:00)
[2017-08-18 07:21] LABS: BASO # 0.07 K/mm3 (0.0-2.0); BASO % 1.3 % (0.0-3.0); EOS # 0.3 (0.0-0.7); EOS % 6.3 % (1.5-5.0); GRAN # 3.18 (1.4-6.5); GRAN % 59.4 % (50.0-68.0); HEMATOCRIT 31.8 % (42.0-52.0); MEAN CELL VOLUME 86.4 fl (80.0-105.0); MEAN CORPUSCULAR HGB CONC 32.4 g/dl (31.0-37.0); MONO # 0.8 (0.1-0.6); RED CELL DISTRIBUTION WIDTH 13.3 % (11.5-14.5); WHITE BLOOD COUNT 5.4 10^3/ul (4.5-11.0)
[2017-08-18] MEDS: POLYETHYLENE GLYCOL 3350 17 GM/Dose PACKET PO SCH (09:39)
[2017-08-18] MEDS: Pantoprazole 20 mg EC Tab PO SCH (09:39)
[2017-08-18] MEDS: Sodium Chloride 0.45% 1,000 ML IV SCH ×2 (11:27→12:29)
[2017-08-18] MEDS: Non Formulary Medication (Linagliptin [Tradjenta] 5 MG) PO SCH (11:43)
--- NOTE | 2017-08-18 11:50 | CP.PCM.PN ---
Subjective - Date & Time of Evaluation Date of Evaluation: 08/18/17 Objective - Vital Signs/Intake and Output Vital Signs (last 24 hours): Temp Pulse Resp BP Pulse Ox 98.2 F 67 14 151/65 H 100 08/18/17 10:56 08/18/17 10:56 08/18/17 10:56 08/18/17 10:56 08/18/17 07:59 Intake and Output: 08/18/17 08/18/17 06:59 18:59 Intake Total 1520 Output Total 500 Balance 1020 - Medications Medications: Current Medications Amlodipine Besylate (Norvasc) 5 mg PO DAILY [facility] Last Admin: 08/18/17 09:39 Dose: Not Given Aspirin (Ecotrin) 81 mg PO HS [facility] Last Admin: 08/17/17 21:36 Dose: 81 mg Collagenase (Santyl) 0 gm TOP DAILY [facility] Last Admin: 08/17/17 11:26 Dose: 1 unit Escitalopram Oxalate (Lexapro) 20 mg PO DAILY [facility] Last Admin: 08/18/17 09:38 Dose: Not Given Ceftaroline Fosamil 400 mg/ (Sodium Chloride) 100 mls @ 100 mls/hr IVPB Q12 [facility] PRN Reason: Protocol Stop: 08/24/17 10:01 Last Admin: 08/17/17 21:38 Dose: 100 mls/hr Sodium Chloride (Sodium Chloride 0.45%) 1,000 mls @ 80 mls/hr IV .[id number] [facility] Stop: 08/19/17 12:00 Last Admin: 08/17/17 11:26 Dose: 80 mls/hr Sodium Chloride (Sodium Chloride 0.45%) 1,000 mls @ 80 mls/hr IV .[id number] [facility] Last Admin: 08/18/17 11:27 Dose: Not Given Insulin Detemir (Levemir) 30 unit SC ACBHS [facility] Last Admin: 08/18/17 07:00 Dose: Not Given Insulin Human Regular (Humulin R Med) 0 units SC ACHS [facility] PRN Reason: Protocol Last Admin: 08/18/17 07:00 Dose: Not Given Levetiracetam (Keppra) 500 mg PO BID [facility] Last Admin: 08/18/17 09:38 Dose: Not Given Lisinopril (Zestril) 20 mg PO DAILY [facility] Last Admin: 08/18/17 09:40 Dose: Not Given Metoprolol Tartrate (Lopressor) 50 mg PO BRKDIN [facility] Last Admin: 08/18/17 09:41 Dose: Not Given Non-Formulary Medication (Linagliptin [Tradjenta]) 5 mg PO DAILY [facility] Last Admin: 08/18/17 11:43 Dose: Not Given Ondansetron HCl (Zofran Inj) 4 mg IVP ONCE PRN PRN Reason: Nausea/Vomiting Stop: 08/18/17 14:00 Ondansetron HCl (Zofran Inj) 4 mg IVP Q6H PRN PRN Reason: Nausea/Vomiting Pantoprazole Sodium (Protonix Ec Tab) 20 mg PO ACB [facility] Last Admin: 08/18/17 09:39 Dose: Not Given Polyethylene Glycol (Miralax) 17 gm PO DAILY [facility] Last Admin: 08/18/17 09:39 Dose: Not Given Tamsulosin HCl (Flomax) 0.4 mg PO HS [facility] Last Admin: 08/17/17 21:36 Dose: 0.4 mg Trazodone HCl (Desyrel) 25 mg PO HS [facility] Last Admin: 08/17/17 21:36 Dose: 25 mg - Labs Labs: 08/18/17 07:14 PT 13.4 SECONDS (9.4-12.5) H 08/17/17 10:45 INR 1.21 (0.93-1.08) H 08/17/17 10:45 APTT 31.5 Seconds (25.1-36.5) 08/17/17 10:45
[2017-08-18] MEDS: Collagenase 250 Units/gm Ointment(30 gm) TOP SCH (12:29)
[2017-08-18 14:34] VITALS: RESP 20
--- NOTE | 2017-08-18 14:39 | CP.PCM.PN ---
<Nic Maher - Last Filed: 08/18/17 14:34> Subjective - Date & Time of Evaluation Date of Evaluation: 08/18/17 Time of Evaluation: 14:04 - Subjective Subjective: Nic Maher PGY1 IM progress note for Dr. Higgins covering for Dr. Gutierrez The patient was seen and examined at bedside. The patient is well and offers no complaints. he denies any fullness in the belly, abdominal pain, dysuria, hematuria, chest pain, fevers/chill. Pt is a poor historian, and offers to call his for more information. per nurse who applied the dressing, there is an ucler (down to the bone) over the MTP joint. Objective - Vital Signs/Intake and Output Vital Signs (last 24 hours): Temp Pulse Resp BP Pulse Ox 98.2 F 67 14 151/65 H 100 08/18/17 10:56 08/18/17 10:56 08/18/17 10:56 08/18/17 10:56 08/18/17 07:59 Intake and Output: 08/18/17 08/18/17 06:59 18:59 Intake Total 1520 Output Total 500 Balance 1020 - Medications Medications: Current Medications Amlodipine Besylate (Norvasc) 5 mg PO DAILY [facility] Last Admin: 08/18/17 09:39 Dose: Not Given Aspirin (Ecotrin) 81 mg PO HS [facility] Last Admin: 08/17/17 21:36 Dose: 81 mg Collagenase (Santyl) 0 gm TOP DAILY [facility] Last Admin: 08/18/17 12:29 Dose: 1 unit Escitalopram Oxalate (Lexapro) 20 mg PO DAILY [facility] Last Admin: 08/18/17 09:38 Dose: Not Given Ceftaroline Fosamil 400 mg/ (Sodium Chloride) 100 mls @ 100 mls/hr IVPB Q12 [facility] PRN Reason: Protocol Stop: 08/24/17 10:01 Last Admin: 08/18/17 12:29 Dose: 100 mls/hr Sodium Chloride (Sodium Chloride 0.45%) 1,000 mls @ 80 mls/hr IV .[id number] [facility] Stop: 08/19/17 12:00 Last Admin: 08/18/17 12:29 Dose: 80 mls/hr Sodium Chloride (Sodium Chloride 0.45%) 1,000 mls @ 80 mls/hr IV .[id number] [facility] Last Admin: 08/18/17 11:27 Dose: Not Given Insulin Detemir (Levemir) 30 unit SC ACS [facility] Last Admin: 08/18/17 07:00 Dose: Not Given Insulin Human Regular (Humulin R Med) 0 units SC [facility] PRN Reason: Protocol Last Admin: 08/18/17 12:15 Dose: Not Given Levetiracetam (Keppra) 500 mg PO BID [facility] Last Admin: 08/18/17 09:38 Dose: Not Given Lisinopril (Zestril) 20 mg PO DAILY [facility] Last Admin: 08/18/17 09:40 Dose: Not Given Metoprolol Tartrate (Lopressor) 50 mg PO BRKDIN [facility] Last Admin: 08/18/17 09:41 Dose: Not Given Non-Formulary Medication (Linagliptin [Tradjenta]) 5 mg PO DAILY [facility] Last Admin: 08/18/17 11:43 Dose: Not Given Ondansetron HCl (Zofran Inj) 4 mg IVP Q6H PRN PRN Reason: Nausea/Vomiting Pantoprazole Sodium (Protonix Ec Tab) 20 mg PO ACB [facility] Last Admin: 08/18/17 09:39 Dose: Not Given Polyethylene Glycol (Miralax) 17 gm PO DAILY [facility] Last Admin: 08/18/17 09:39 Dose: Not Given Tamsulosin HCl (Flomax) 0.4 mg PO [facility] Last Admin: 08/17/17 21:36 Dose: 0.4 mg Trazodone HCl (Desyrel) 25 mg PO [facility] Last Admin: 08/17/17 21:36 Dose: 25 mg - Labs Labs: 08/18/17 07:14 PT 13.4 SECONDS (9.4-12.5) H 08/17/17 10:45 INR 1.21 (0.93-1.08) H 08/17/17 10:45 APTT 31.5 Seconds (25.1-36.5) 08/17/17 10:45 - Constitutional Appears: Well, Non-toxic, No Acute Distress - Head Exam Head Exam: ATRAUMATIC, NORMAL INSPECTION, NORMOCEPHALIC - Eye Exam Eye Exam: EOMI, Normal appearance, PERRL Pupil Exam: NORMAL ACCOMODATION - ENT Exam ENT Exam: Mucous Membranes Moist, Normal Exam - Neck Exam Neck Exam: Full ROM, Normal Inspection - Respiratory Exam Respiratory Exam: Clear to Ausculation Bilateral, NORMAL BREATHING PATTERN. absent: Rales, Rhonchi, Wheezes - Cardiovascular Exam Cardiovascular Exam: RRR, +S1, +S2, Murmur (holosystolic blowing murmur noted). absent: JVD - GI/Abdominal Exam GI & Abdominal Exam: Soft, Normal Bowel Sounds. absent: Distended, Tenderness Additional comments: pelvic wrap applied post-angio no bleeding or hematomas noted at sites - Extremities Exam Extremities Exam: absent: Calf Tenderness Additional comments: R foot amputated hallux L foot wrapped with clean/dry/intact dressing L hallux laterally deviated - Back Exam Back Exam: NORMAL INSPECTION - Neurological Exam Neurological Exam: Alert, Awake, Oriented x3 - Psychiatric Exam Psychiatric exam: Normal Affect, Normal Mood - Skin Skin Exam: Normal Color, Warm Additional comments: L distal tibia medially has chronic vascular changes (peeling, scaly, dark skin) Assessment and Plan - Assessment and Plan (Free Text) Assessment: Ms. Calloway is a 62yo M with PMH DM2 (insulin dependent) w/ peripheral neuropathy, b/l CVA s/p subacute bacterial endocarditis w/ valve replacement and PVD s/p R hallux amputation who presents with purulent discharge from L hallux likely 2/2 cellulitis vs osteomyelitis Plan: 1. L hallux plantar ulcer likely 2/2 cellulitis vs osteomyelitis vs PVD ( insufficiency) vs diabetic neuropathy - Angiogram was done today, f/u results - podiatry consulted, rec no surgical intervention at this time - IR consulted, recs appreciated - ID consulted, recs appreciated - vascular surgery consulted, recs appreciated - MRI foot showed marrow edema in the 1st metatarsal suspicious for osteomyelitis. There is also fluid collection near the tip of the amputated metatarsal suspicious for abscess. - b/l LE areterial US dopplers showed 1. Critical stenosis in the distal left SFA 2. 50-99 percent stenosis in the left profunda femoral artery origin. 3. Borderline stenosis in the proximal left SFA. 4. The tibial arteries are not adequately visualized. - started on teflaro - blood and foot cultures show no growth after 24hrs - PICC line ordered for possible long-term abx - bleeding precautions 2. DM2 - ISS - Levemir 30u ACBHS - ACcucheck - CCD 3. Hx CVA - b/l carotid artery dopplers showed 1. 70 percent proximal left ICA stenosis 2. 40-59 percent proximal right ICA stenosis 3. Antegrade flow in both vertebral arteries. - Cardio consulted, recs appreciated - cont ASA, Lisinopril, Metoprolol, Norvasc - Keppra BID - Lexapro and trazodone PTX/SCDs CCB Patient was seen, examined and discussed with attending, Dr. Gisela Maher PGY1 <Ron Higgins B - Last Filed: 08/20/17 12:58> Objective - Vital Signs/Intake and Output Vital Signs (last 24 hours): Temp Pulse Resp BP Pulse Ox 98.1 F 62 20 152/80 H 97 08/20/17 07:30 08/20/17 07:30 08/20/17 07:30 08/20/17 09:30 08/20/17 07:30 Intake and Output: 08/20/17 08/20/17 06:59 18:59 Intake Total 1730 Output Total 1400 Balance 330 - Medications Medications: Current Medications Amlodipine Besylate (Norvasc) 5 mg PO DAILY [facility] Last Admin: 08/20/17 09:30 Dose: 5 mg Aspirin (Ecotrin) 81 mg PO HS [facility] Last Admin: 08/19/17 22:27 Dose: 81 mg Collagenase (Santyl) 0 gm TOP DAILY [facility] Last Admin: 08/20/17 09:32 Dose: 1 applic Docusate Sodium (Colace) 100 mg PO DAILY [facility] Last Admin: 08/20/17 09:30 Dose: 100 mg Escitalopram Oxalate (Lexapro) 20 mg PO DAILY [facility] Last Admin: 08/20/17 09:30 Dose: 20 mg Ceftaroline Fosamil 400 mg/ (Sodium Chloride) 100 mls @ 100 mls/hr IVPB Q12 [facility] PRN Reason: Protocol Stop: 08/24/17 10:01 Last Admin: 08/20/17 09:42 Dose: 100 mls/hr Sodium Chloride (Sodium Chloride 0.45%) 1,000 mls @ 80 mls/hr IV .[id number] [facility] Last Admin: 08/20/17 12:24 Dose: 80 mls/hr Insulin Detemir (Levemir) 10 unit SC ACBHS [facility] Last Admin: 08/20/17 09:31 Dose: 10 unit Insulin Human Regular (Humulin R Med) 0 units SC [facility] PRN Reason: Protocol Last Admin: 08/20/17 12:23 Dose: 3 units Levetiracetam (Keppra) 500 mg PO BID [facility] Last Admin: 08/20/17 09:30 Dose: 500 mg Lisinopril (Zestril) 20 mg PO DAILY [facility] Last Admin: 08/20/17 09:30 Dose: 20 mg Metoprolol Tartrate (Lopressor) 50 mg PO BRKDIN [facility] Last Admin: 08/20/17 09:30 Dose: 50 mg Non-Formulary Medication (Linagliptin [Tradjenta]) 5 mg PO DAILY [facility] Last Admin: 08/20/17 09:31 Dose: Not Given Ondansetron HCl (Zofran Inj) 4 mg IVP Q6H PRN PRN Reason: Nausea/Vomiting Pantoprazole Sodium (Protonix Ec Tab) 20 mg PO ACB [facility] Last Admin: 08/20/17 09:30 Dose: 20 mg Polyethylene Glycol (Miralax) 17 gm PO DAILY [facility] Last Admin: 08/20/17 09:31 Dose: 17 gm Tamsulosin HCl (Flomax) 0.4 mg PO HS [facility] Last Admin: 08/19/17 22:26 Dose: 0.4 mg Trazodone HCl (Desyrel) 25 mg PO HS [facility] Last Admin: 08/19/17 22:27 Dose: 25 mg - Labs Labs: 08/20/17 10:00 08/20/17 10:00 PT 13.4 SECONDS (9.4-12.5) H 08/17/17 10:45 INR 1.21 (0.93-1.08) H 08/17/17 10:45 APTT 31.5 Seconds (25.1-36.5) 08/17/17 10:45 Attending/Attestation - Attestation I have personally seen and examined this patient.: Yes I have fully participated in the care of the patient.: Yes I have reviewed all pertinent clinical information, including history, physical exam and plan: Yes Notes (Text): I have seen and examined the patient at bedside. Agree with the above note with the following additions/ exceptions: Briefly this is 62year old male with history of IDDM, peripheral neuropathy, CVA, s/p subacute bacterial endocarditis w/ valve replacement and PVD s/p R hallux amputation who presents with purulent discharge from L hallux secondary to osteomyelitis. Patient underwent successful angiogram today. Will follow up with Podiatry regarding plan. Continue teflaro for now. Patient already has picc line in place. Upon discharge patient will follow up with Dr Gutierrez. Dr Ron Higgins
--- NOTE | 2017-08-18 15:30 | PCM.SURG1 ---
Surgeon's Initial Post Op Note - Surgeon's Notes Surgeon: Dr. Pineda Retail Consultant: Dr. Guerra PGY2 Type of Anesthesia: Local Pre-Operative Diagnosis: LLE Osteomyelitis, Arterial Atherosclerosis Operative Findings: See Operative dictation Post-Operative Diagnosis: Lower extremity Arterial Atherosclerosis Operation Performed: Bilateral Common Iliac stenting, Arthrectomy and baloon angioplast left anterior tibial, and left Superficial femoral Specimen/Specimens Removed: no Estimated Blood Loss: EBL {In ML}: 5 Drains Used: No Drains Post-Op Condition: Good Date of Surgery/Procedure: 08/18/17 Time of Surgery/Procedure: 08:00
--- NOTE | 2017-08-18 18:22 | VASCULAR ---
PROCEDURE: 1. Abdominal aortogram and bilateral lower extremity runoff with bilateral punctures 2. Left SFA silver Hawk atherectomy with drug-eluting balloon angioplasty. 3. Kissing bilateral common iliac artery angioplasty and stent placement 4. Left tibioperoneal trunk angioplasty 5. Distal left anterior tibial artery angioplasty HISTORY: Diabetes. Nonhealing ulcer plantar aspect left foot. PHYSICIAN(S): MD Braeden Scott M.D. TECHNIQUE: The relative risks and indications of the procedure were explained to the patient and his and consent obtained. The patient was hydrated prior to the procedure and the appropriate labs drawn. The patient was placed supine on the arteriogram table and both groins prepped and draped in the usual sterile fashion. Conscious sedation and monitoring were provided throughout the procedure by a nurse. Via a right common femoral artery approach, a 5 Georgian sheath was placed in the right groin. Through the sheath and over a guidewire, a 5 Georgian flush catheter was placed in the abdominal aorta at the level of the renal arteries and a PA DSA abdominal aortogram performed. The catheter was pulled down to the aortic bifurcation and bilateral oblique DSA pelvic arteriograms performed. Overlapping bilateral lower extremity DSA arteriograms were obtained from the inguinal ligaments to the ankles A 0.035 angled Glidewire was advanced over the bifurcation and placed in the mid left SFA.. A 7 Georgian 65 cm destination sheath was placed in the left iliac system.. Pull-back pressures were obtained across the left common iliac artery. A significant 20 mm gradient was noted at the left common iliac artery origin. Heparin 6000 units IV and nitroglycerin in 250 mcg aliquots were given. The disease in the proximal and distal left SFA was crossed with a 5 Georgian catheter and angled Glidewire. Exchange is made for a 0.014 support wire in the left peroneal artery. The severe stenosis in the left tibioperoneal trunk was dilated with a 3.0 by 4 cm balloon. An excellent angiographic result was obtained. No stent was required. 0.014 guidewire was redirected down the left anterior tibial artery. The focal stenosis in the distal left anterior tibial artery was dilated with a 2.5 x 2 cm angioplasty balloon. Once again a good angiographic result was obtained and no stent was placed. Silver Hawk atherectomy of the proximal and distal left SFA was performed with and LS catheter. Approximately 6 passes were performed. Distal left SFA was dilated with a 6 mm by 150 mm drug-eluting balloon. The proximal left SFA was dilated with a 7 mm by 6 cm drug-eluting balloon. Once again no stent was required. The left common femoral artery was punctured and a 7 Georgian 25 cm sheath placed on the left. A similar 7 Georgian 25 cm sheath was placed on the right. 0.035 support wire for placed the thoracic aorta. 9 mm x 39 mm balloon expandable stent was placed on the right. An 8 mm x 39 mm balloon expandable stent was placed on the left. The common iliac artery stents were deployed in a kissing fashion. The right stent was subsequently dilated with a 10 mm balloon an the left stent was dilated with 9 mm balloon. Completion angiograms were obtained. The patient tolerated the procedure well. The sheaths were removed and hemostasis obtained with bilateral Perclose devices. FINDINGS: There are single renal arteries bilaterally. There is a critical 90 percent stenosis of the proximal left renal artery. Mild 30-40 percent stenosis proximal right renal artery seen. The nephrograms are symmetric in appearance. The infrarenal aorta is calcified. The KIMBER is enlarged. It appears to be serving as a collateral to the SMA. The aortic bifurcation is calcified. Significant bilateral calcified common iliac artery origin is stenoses are present. There is a 20 mm systolic gradient at the left common iliac artery origin. The distal common iliac arteries and external iliac arteries are patent and normal. The internal iliac arteries are patent bilaterally. Right lower extremity: The right common femoral artery is patent. The right profunda femoral artery is patent. The right superficial femoral artery is diffusely diseased with multiple mild stenoses. No radiographically significant stenosis is seen.. The right popliteal artery has in E centric 50 percent stenosis below the knee. There is significant right trifurcation and tibial occlusive disease. The right anterior tibial artery is continuous in the predominant supply to the foot. The right posterior tibial artery occludes proximally. The right peroneal artery is small. Left lower extremity: Left common femoral artery is patent with moderate posterior plaque. There is a moderate stenosis of the origin of the left profunda femoral artery. Smooth disease is seen at the origin left SFA. There is diffuse atherosclerotic disease throughout the left SFA. Multiple moderate to severe stenoses are seen in the distal left SFA and left popliteal artery above the knee. The left popliteal artery is otherwise continuous. There is severe left trifurcation and tibial occlusive disease. There is a severe stenosis of the left tibioperoneal trunk. The left anterior tibial artery is a predominant supply to the foot. There is a focal severe stenosis in the distal left anterior tibial artery. The left posterior tibial artery is occluded.. IMPRESSION: 1.Successful kissing bilateral common iliac artery angioplasty stent placement. 2. Successful left SFA silver Hawk atherectomy and drug-eluting balloon angioplasty. 3. Successful left tibioperoneal trunk and distal left anterior tibial artery angioplasty. 4. Severe left proximal renal artery stenosis. Mild disease is seen on the right
[2017-08-19] MEDS: Sodium Chloride 0.45% 1,000 ML IV SCH ×2 (01:58→13:58)
[2017-08-19 08:09] LABS: BLOOD UREA NITROGEN 10 mg/dL (7-21); CALCIUM 9.1 mg/dL (8.4-10.5); CARBON DIOXIDE 30 mmol/L (21-33); CHLORIDE 106 mmol/L (98-107); GFR AFRICAN-AMERICAN > 60; GLUCOSE,RANDOM 70 mg/dL (70-110); POTASSIUM 3.7 mmol/L (3.6-5.0); SODIUM 142 mmol/L (132-148)
[2017-08-19] MEDS: Insulin Reg-MEDIUM-Coverage SC SCH ×4 (08:15→23:32)
[2017-08-19] MEDS: Insulin Detemir 100 units/ml Vial (Levemir) SC SCH ×2 (08:20→22:27)
[2017-08-19] MEDS: Pantoprazole 20 mg EC Tab PO SCH (08:53)
[2017-08-19] MEDS: POLYETHYLENE GLYCOL 3350 17 GM/Dose PACKET PO SCH (10:19)
--- NOTE | 2017-08-19 11:12 | PN ---
DATE: SUBJECTIVE: This is a 62-year-old diabetic male who was seen at bedside for continued evaluation and management of a diabetic foot infection. The patient has undergone successful interventional vascular surgery yesterday by Dr. Shay with stent placement. The patient is resting comfortably and is anxious to go home. PHYSICAL EXAMINATION/OBJECTIVE: VITAL SIGNS: The patient's vital signs revealed temperature of 97.6, pulse rate of 61, blood pressure of 142/86, and respiratory rate of 20. EXTREMITIES: Nonpalpable posterior tibial pulse and weakly palpable dorsalis pedis pulse noted bilaterally. The patient has a large ulceration located on the plantar aspect of the left at the first metatarsophalangeal joint. Base of the ulcer now is primarily granular with some minimal fibrotic and necrotic tissue at the distal wound edges. Wound measures approximately 4 cm x 4 cm x 1.5 cm in depth. There is noted to be no malodor and no purulence to suggest underlying abscess formation. No signs of localized or ascending cellulitis. LABORATORY DATA: Microbiology report of the left foot reveals no organisms preliminarily. His laboratory findings revealed a white count of 5.4, hemoglobin of 10.3, hematocrit of 31.8, and platelet count of 173. His ESR is elevated at 78. DIAGNOSTIC DATA: MRI reveals suspicious finding at the first metatarsal for osteomyelitis. ASSESSMENT: Status post successful vascular intervention yesterday, with stent placement, and severe diabetic left foot ulceration. PLAN: The patient's wound was examined. Area was flushed with normal sterile saline and application of Xeroform with a dry sterile dressing was applied. The patient is anxious to go home and since his wound cultures remain negative and he had undergone successful vascular intervention to increase his lower extremity perfusion, we would recommend the patient be discharged home on Rocephin. Spoke with Dr. Chiu and we will plan on discharge him on Monday. The patient will [facility] and have daily infusions of Rocephin at home. The patient will be seen and followed until discharge. Josh Hurtado DPM
[2017-08-19] MEDS: Non Formulary Medication (Linagliptin [Tradjenta] 5 MG) PO SCH (11:24)
--- NOTE | 2017-08-19 12:25 | CP.PCM.PN ---
<Jac Cancino - Last Filed: 08/20/17 08:40> Subjective - Date & Time of Evaluation Date of Evaluation: 08/19/17 Time of Evaluation: 09:10 - Subjective Subjective: Patient was seen and examined at bedside in no acute distress. Patient states he didn't sleep much overnight. Admits to waxing and waning pain at site of suspected osteomyelitis, but denies pain at the current time. Patient states he has not moved his bowels in the past two days. Patient denies fevers, chills, cough, shortness of breath, chest pain, nausea, vomiting, diarrhea. Objective - Vital Signs/Intake and Output Vital Signs (last 24 hours): Temp Pulse Resp BP Pulse Ox 97.6 F 61 20 142/86 95 08/19/17 07:30 08/19/17 10:20 08/19/17 07:30 08/19/17 10:20 08/19/17 07:30 Intake and Output: 08/19/17 08/19/17 06:59 18:59 Intake Total 2280 Output Total 2325 Balance -45 - Medications Medications: Current Medications Amlodipine Besylate (Norvasc) 5 mg PO DAILY [facility] Last Admin: 08/19/17 10:20 Dose: 5 mg Aspirin (Ecotrin) 81 mg PO HS [facility] Last Admin: 08/18/17 21:37 Dose: 81 mg Collagenase (Santyl) 0 gm TOP DAILY [facility] Last Admin: 08/18/17 12:29 Dose: 1 unit Docusate Sodium (Colace) 100 mg PO DAILY [facility] Escitalopram Oxalate (Lexapro) 20 mg PO DAILY [facility] Last Admin: 08/19/17 10:19 Dose: 20 mg Ceftaroline Fosamil 400 mg/ (Sodium Chloride) 100 mls @ 100 mls/hr IVPB Q12 [facility] PRN Reason: Protocol Stop: 08/24/17 10:01 Last Admin: 08/19/17 09:02 Dose: 100 mls/hr Sodium Chloride (Sodium Chloride 0.45%) 1,000 mls @ 80 mls/hr IV .[id number] [facility] Last Admin: 08/18/17 11:27 Dose: Not Given Insulin Detemir (Levemir) 10 unit SC ACBHS [facility] Insulin Human Regular (Humulin R Med) 0 units SC [facility] PRN Reason: Protocol Last Admin: 08/19/17 11:45 Dose: 3 units Levetiracetam (Keppra) 500 mg PO BID [facility] Last Admin: 08/19/17 11:19 Dose: 500 mg Lisinopril (Zestril) 20 mg PO DAILY [facility] Last Admin: 08/18/17 09:40 Dose: Not Given Metoprolol Tartrate (Lopressor) 50 mg PO BRKDIN [facility] Last Admin: 08/19/17 08:55 Dose: 50 mg Non-Formulary Medication (Linagliptin [Tradjenta]) 5 mg PO DAILY [facility] Last Admin: 08/19/17 11:24 Dose: Not Given Ondansetron HCl (Zofran Inj) 4 mg IVP Q6H PRN PRN Reason: Nausea/Vomiting Pantoprazole Sodium (Protonix Ec Tab) 20 mg PO ACB [facility] Last Admin: 08/19/17 08:53 Dose: 20 mg Polyethylene Glycol (Miralax) 17 gm PO DAILY [facility] Last Admin: 08/19/17 10:19 Dose: 17 gm Tamsulosin HCl (Flomax) 0.4 mg PO HS [facility] Last Admin: 08/18/17 21:37 Dose: 0.4 mg Trazodone HCl (Desyrel) 25 mg PO HS [facility] Last Admin: 08/18/17 21:38 Dose: 25 mg - Labs Labs: 08/18/17 07:14 08/19/17 07:00 PT 13.4 SECONDS (9.4-12.5) H 08/17/17 10:45 INR 1.21 (0.93-1.08) H 08/17/17 10:45 APTT 31.5 Seconds (25.1-36.5) 08/17/17 10:45 - Constitutional Appears: Non-toxic, No Acute Distress - Head Exam Head Exam: ATRAUMATIC, NORMAL INSPECTION, NORMOCEPHALIC - Eye Exam Eye Exam: EOMI, Normal appearance Pupil Exam: NORMAL ACCOMODATION - ENT Exam ENT Exam: Mucous Membranes Moist, Normal Exam - Neck Exam Neck Exam: Full ROM, Normal Inspection - Respiratory Exam Respiratory Exam: Clear to Ausculation Bilateral, NORMAL BREATHING PATTERN. absent: Rhonchi, Wheezes, Respiratory Distress, Stridor - Cardiovascular Exam Cardiovascular Exam: REGULAR RHYTHM, +S1, +S2 - GI/Abdominal Exam GI & Abdominal Exam: Soft, Normal Bowel Sounds - Extremities Exam Extremities Exam: Tenderness. absent: Full ROM, Normal Inspection, Pedal Edema Additional comments: Left foot wound depth visible s/p surgery, wrapped up in bandage - Back Exam Back Exam: NORMAL INSPECTION - Neurological Exam Neurological Exam: Alert, Awake, Oriented x3 - Psychiatric Exam Psychiatric exam: Normal Affect, Normal Mood - Skin Skin Exam: Normal Color, Warm Assessment and Plan - Assessment and Plan (Free Text) Assessment: Ms. Calloway is a 62yo M with PMH DM2 (insulin dependent) w/ peripheral neuropathy, b/l CVA s/p subacute bacterial endocarditis w/ valve replacement and PVD s/p R hallux amputation who presents with purulent discharge from L hallux likely 2/2 cellulitis vs osteomyelitis Plan: 1. L hallux plantar ulcer likely 2/2 cellulitis vs osteomyelitis vs PVD ( insufficiency) vs diabetic neuropathy - Angiogram successful - blood cultures show no growth after 72 hrs, wound culture no growth after 48 hours - As per podiatry; with negative wound culture and successful vascular intervention patient may be discharged Monday on rocephin as per ID - Continue Teflaro as per ID, will switch to rocephin when discharged 2. IDDM - ISS - Glucose levels were trending downward, Levemir 30 units decreased to 10 units to avoid hypoglycemia - Accucheck - Carb controlled diet 3. Hx CVA - Cardio consulted based on carotid doppler findings, recs appreciated - cont ASA, Lisinopril, Metoprolol, Norvasc 4. History of Seizure on 02/14/2015 - Keppra BID - Lexapro and trazodone PTX/SCDs CCB Patient was seen, examined and discussed with attending, Dr. Higgins <Ron Higgins B - Last Filed: 08/20/17 13:41> Objective - Vital Signs/Intake and Output Vital Signs (last 24 hours): Temp Pulse Resp BP Pulse Ox 98.1 F 62 20 152/80 H 97 08/20/17 07:30 08/20/17 07:30 08/20/17 07:30 08/20/17 09:30 08/20/17 07:30 Intake and Output: 08/20/17 08/20/17 06:59 18:59 Intake Total 1730 Output Total 1400 Balance 330 - Medications Medications: Current Medications Amlodipine Besylate (Norvasc) 5 mg PO DAILY [facility] Last Admin: 08/20/17 09:30 Dose: 5 mg Aspirin (Ecotrin) 81 mg PO HS [facility] Last Admin: 08/19/17 22:27 Dose: 81 mg Collagenase (Santyl) 0 gm TOP DAILY [facility] Last Admin: 08/20/17 09:32 Dose: 1 applic Docusate Sodium (Colace) 100 mg PO DAILY [facility] Last Admin: 08/20/17 09:30 Dose: 100 mg Escitalopram Oxalate (Lexapro) 20 mg PO DAILY [facility] Last Admin: 08/20/17 09:30 Dose: 20 mg Ceftaroline Fosamil 400 mg/ (Sodium Chloride) 100 mls @ 100 mls/hr IVPB Q12 [facility] PRN Reason: Protocol Stop: 08/24/17 10:01 Last Admin: 08/20/17 09:42 Dose: 100 mls/hr Sodium Chloride (Sodium Chloride 0.45%) 1,000 mls @ 80 mls/hr IV .[id number] [facility] Last Admin: 08/20/17 12:24 Dose: 80 mls/hr Insulin Detemir (Levemir) [facility] Last Admin: 08/20/17 09:31 Dose: 10 unit Insulin Human Regular (Humulin R Med) 0 units SC [facility] PRN Reason: Protocol Last Admin: 08/20/17 12:23 Dose: 3 units Levetiracetam (Keppra) 500 mg PO BID [facility] Last Admin: 08/20/17 09:30 Dose: 500 mg Lisinopril (Zestril) 20 mg PO DAILY [facility] Last Admin: 08/20/17 09:30 Dose: 20 mg Metoprolol Tartrate (Lopressor) 50 mg PO BRKDIN [facility] Last Admin: 08/20/17 09:30 Dose: 50 mg Non-Formulary Medication (Linagliptin [Tradjenta]) 5 mg PO DAILY [facility] Last Admin: 08/20/17 09:31 Dose: Not Given Ondansetron HCl (Zofran Inj) 4 mg IVP Q6H PRN PRN Reason: Nausea/Vomiting Pantoprazole Sodium (Protonix Ec Tab) 20 mg PO ACB [facility] Last Admin: 08/20/17 09:30 Dose: 20 mg Polyethylene Glycol (Miralax) 17 gm PO DAILY [facility] Last Admin: 08/20/17 09:31 Dose: 17 gm Tamsulosin HCl (Flomax) 0.4 mg PO HS [facility] Last Admin: 08/19/17 22:26 Dose: 0.4 mg Trazodone HCl (Desyrel) 25 mg PO HS [facility] Last Admin: 08/19/17 22:27 Dose: 25 mg - Labs Labs: 08/20/17 10:00 08/20/17 10:00 PT 13.4 SECONDS (9.4-12.5) H 08/17/17 10:45 INR 1.21 (0.93-1.08) H 08/17/17 10:45 APTT 31.5 Seconds (25.1-36.5) 08/17/17 10:45 Attending/Attestation - Attestation I have personally seen and examined this patient.: Yes I have fully participated in the care of the patient.: Yes I have reviewed all pertinent clinical information, including history, physical exam and plan: Yes Notes (Text): I have seen and examined the patient at bedside. Agree with the above note with the following additions/ exceptions: Briefly this is 62year old male with history of alcohol abuse, IDDM,HTN, peripheral neuropathy, CVA, s/p subacute bacterial endocarditis w/ valve replacement and PVD s/p R hallux amputation who presents with non healing left 1st metastarsal osteomyelitis. Patient underwent successful angioplasty for PAD . Plan is to start rocephin upon discharge and to continue that for 4-6 weeks. He will also need weekly labs.Will discuss with rn case manager on Monday. Continue teflaro for now. Patient already has picc line in place. Upon discharge patient will follow up with Dr Gutierrez. Dr Ron Higgins 1
[2017-08-19] MEDS: Collagenase 250 Units/gm Ointment(30 gm) TOP SCH (17:03)
--- NOTE | 2017-08-19 18:59 | CP.PCM.PN ---
Subjective - Date & Time of Evaluation Date of Evaluation: 08/18/17 Time of Evaluation: 08:50 - Subjective Subjective: Comfortable in bed, no fevers. Objective - Vital Signs/Intake and Output Vital Signs (last 24 hours): Temp Pulse Resp BP Pulse Ox 97.5 F L 52 L 20 124/71 100 08/18/17 07:59 08/18/17 07:59 08/18/17 07:59 08/18/17 07:59 08/18/17 07:59 Intake and Output: 08/18/17 08/18/17 06:59 18:59 Intake Total 1520 Output Total 500 Balance 1020 - Medications Medications: Current Medications Amlodipine Besylate (Norvasc) 5 mg PO DAILY [facility] Last Admin: 08/17/17 09:46 Dose: 5 mg Aspirin (Ecotrin) 81 mg PO HS [facility] Last Admin: 08/17/17 21:36 Dose: 81 mg Collagenase (Santyl) 0 gm TOP DAILY [facility] Last Admin: 08/17/17 11:26 Dose: 1 unit Escitalopram Oxalate (Lexapro) 20 mg PO DAILY [facility] Last Admin: 08/17/17 11:26 Dose: 20 mg Ceftaroline Fosamil 400 mg/ (Sodium Chloride) 100 mls @ 100 mls/hr IVPB Q12 [facility] PRN Reason: Protocol Stop: 08/24/17 10:01 Last Admin: 08/17/17 21:38 Dose: 100 mls/hr Sodium Chloride (Sodium Chloride 0.45%) 1,000 mls @ 80 mls/hr IV .[id number] [facility] Stop: 08/19/17 12:00 Last Admin: 08/17/17 11:26 Dose: 80 mls/hr Insulin Detemir (Levemir) 30 unit SC ACBHS [facility] Last Admin: 08/17/17 21:36 Dose: 30 unit Insulin Human Regular (Humulin R Med) [address] [facility] PRN Reason: Protocol Last Admin: 08/17/17 22:22 Dose: Not Given Levetiracetam (Keppra) 500 mg PO BID [facility] Last Admin: 08/17/17 17:39 Dose: 500 mg Lisinopril (Zestril) 20 mg PO DAILY [facility] Last Admin: 08/17/17 09:45 Dose: 20 mg Metoprolol Tartrate (Lopressor) 50 mg PO BRKDIN [facility] Last Admin: 08/17/17 17:39 Dose: 50 mg Non-Formulary Medication (Linagliptin [Tradjenta]) 5 mg PO DAILY [facility] Last Admin: 08/17/17 18:40 Dose: Not Given Ondansetron HCl (Zofran Inj) 4 mg IVP ONCE PRN PRN Reason: Nausea/Vomiting Stop: 08/18/17 14:00 Pantoprazole Sodium (Protonix Ec Tab) 20 mg PO ACB [facility] Last Admin: 08/17/17 09:17 Dose: 20 mg Polyethylene Glycol (Miralax) 17 gm PO DAILY [facility] Last Admin: 08/17/17 09:46 Dose: 17 gm Tamsulosin HCl (Flomax) 0.4 mg PO HS [facility] Last Admin: 08/17/17 21:36 Dose: 0.4 mg Trazodone HCl (Desyrel) 25 mg PO HS [facility] Last Admin: 08/17/17 21:36 Dose: 25 mg - Labs Labs: 08/18/17 07:14 PT 13.4 SECONDS (9.4-12.5) H 08/17/17 10:45 INR 1.21 (0.93-1.08) H 08/17/17 10:45 APTT 31.5 Seconds (25.1-36.5) 08/17/17 10:45 - Constitutional Appears: Non-toxic, No Acute Distress - Head Exam Head Exam: NORMAL INSPECTION - ENT Exam ENT Exam: Mucous Membranes Moist - Neck Exam Neck Exam: absent: Lymphadenopathy, Meningismus - Respiratory Exam Respiratory Exam: Decreased Breath Sounds - Cardiovascular Exam Cardiovascular Exam: +S1, +S2 - GI/Abdominal Exam GI & Abdominal Exam: Soft. absent: Tenderness Assessment and Plan - Assessment and Plan (Free Text) Plan: Assessment left 1st metatarsal osteomyelitis with abscess, S/P angioplasty for peripheral arterial disease POD #1 history sepsis due to left foot infection/ cellulitis with MSSA and Strep anginosus S/P I and D and metatarsal resection history of MRSA bacteremia with infection of the right lower extremity with probable osteomyelitis S/P tenotomy History of Corynebacterium, Grp G strep bacteremia and mitral valve endocarditis S/P valve surgery and replacement ESBL Klebsiella in the urine DM HTN history of alcohol abuse Plan continue Teflaro day 2; reviewed MRI - discussed with Dr. Hurtado - should get 4- 6 weeks of antibiotics with weekly ESR, CRP, CBC, CMP and can be switched to Ceftriaxone based on previous cultures will continue to monitor clinically
[2017-08-20] MEDS: Sodium Chloride 0.45% 1,000 ML IV SCH ×3 (06:27→20:24)
[2017-08-20] MEDS: Insulin Reg-MEDIUM-Coverage SC SCH ×4 (09:30→22:39)
[2017-08-20] MEDS: Pantoprazole 20 mg EC Tab PO SCH (09:30)
[2017-08-20] MEDS: Non Formulary Medication (Linagliptin [Tradjenta] 5 MG) PO SCH (09:31)
[2017-08-20] MEDS: POLYETHYLENE GLYCOL 3350 17 GM/Dose PACKET PO SCH (09:31)
[2017-08-20] MEDS: Insulin Detemir 100 units/ml Vial (Levemir) SC SCH ×2 (09:31→23:07)
[2017-08-20] MEDS: Collagenase 250 Units/gm Ointment(30 gm) TOP SCH (09:32)
[2017-08-20 10:26] LABS: BASO # 0.04 K/mm3 (0.0-2.0); BASO % 0.6 % (0.0-3.0); EOS # 0.3 (0.0-0.7); EOS % 5.1 % (1.5-5.0); GRAN # 4.35 (1.4-6.5); GRAN % 67.2 % (50.0-68.0); HEMATOCRIT 34.1 % (42.0-52.0); LYMPH % 14.7 % (22.0-35.0); MEAN CELL VOLUME 86.5 fl (80.0-105.0); MEAN CORPUSCULAR HEMOGLOBIN 28.2 pg (25.0-35.0); MEAN CORPUSCULAR HGB CONC 32.6 g/dl (31.0-37.0); MEAN PLATELET VOLUME 11.1 fl (7.0-11.0); MONO # 0.8 (0.1-0.6); MONO % 12.4 % (1.0-6.0); RED CELL DISTRIBUTION WIDTH 13.3 % (11.5-14.5); WHITE BLOOD COUNT 6.5 10^3/ul (4.5-11.0)
[2017-08-20 10:48] LABS: ALKALINE PHOSPHATASE 94 U/L (38-126); ALT/SGPT 26 U/L (7-56); AST/SGOT 19 U/L (17-59); BILIRUBIN,TOTAL 0.8 mg/dL (0.2-1.3); BLOOD UREA NITROGEN 13 mg/dL (7-21); CALCIUM 9.3 mg/dL (8.4-10.5); CARBON DIOXIDE 29 mmol/L (21-33); CHLORIDE 102 mmol/L (98-107); GFR AFRICAN-AMERICAN > 60; GLUCOSE,RANDOM 200 mg/dL (70-110); POTASSIUM 4.7 mmol/L (3.6-5.0); SODIUM 140 mmol/L (132-148); TOTAL PROTEIN 7.1 g/dL (5.8-8.3)
--- NOTE | 2017-08-20 13:45 | CP.PCM.PN ---
Subjective - Date & Time of Evaluation Date of Evaluation: 08/20/17 Time of Evaluation: 10:50 - Subjective Subjective: Podiatry Progress Note- Dr. Mercado 62 y/o male seen at bedside this morning for left plantar forefoot ulceration. Pt states he is having an occasional pain in the foot but feels fine at time of visit. Pt's foot is leaning against edge of bed at time of visit. Dressing clean /dry/intact with no strikethrough noted. Pt denies any acute events overnight. Pt denies F/C/N/V/CP/SOB. Objective - Vital Signs/Intake and Output Vital Signs (last 24 hours): Temp Pulse Resp BP Pulse Ox 98.1 F 62 20 152/80 H 97 08/20/17 07:30 08/20/17 07:30 08/20/17 07:30 08/20/17 09:30 08/20/17 07:30 Intake and Output: 08/20/17 08/20/17 06:59 18:59 Intake Total 1730 Output Total 1400 Balance 330 - Medications Medications: Current Medications Amlodipine Besylate (Norvasc) 5 mg PO DAILY [facility] Last Admin: 08/20/17 09:30 Dose: 5 mg Aspirin (Ecotrin) 81 mg PO HS [facility] Last Admin: 08/19/17 22:27 Dose: 81 mg Collagenase (Santyl) 0 gm TOP DAILY [facility] Last Admin: 08/20/17 09:32 Dose: 1 applic Docusate Sodium (Colace) 100 mg PO DAILY [facility] Last Admin: 08/20/17 09:30 Dose: 100 mg Escitalopram Oxalate (Lexapro) 20 mg PO DAILY [facility] Last Admin: 08/20/17 09:30 Dose: 20 mg Ceftaroline Fosamil 400 mg/ (Sodium Chloride) 100 mls @ 100 mls/hr IVPB Q12 [facility] PRN Reason: Protocol Stop: 08/24/17 10:01 Last Admin: 08/20/17 09:42 Dose: 100 mls/hr Sodium Chloride (Sodium Chloride 0.45%) 1,000 mls @ 80 mls/hr IV .[id number] [facility] Last Admin: 08/20/17 12:24 Dose: 80 mls/hr Insulin Detemir (Levemir) 10 unit SC ACBHS [facility] Last Admin: 08/20/17 09:31 Dose: 10 unit Insulin Human Regular (Humulin R Med) 0 units SC ACHS [facility] PRN Reason: Protocol Last Admin: 08/20/17 12:23 Dose: 3 units Levetiracetam (Keppra) 500 mg PO BID [facility] Last Admin: 08/20/17 09:30 Dose: 500 mg Lisinopril (Zestril) 20 mg PO DAILY [facility] Last Admin: 08/20/17 09:30 Dose: 20 mg Metoprolol Tartrate (Lopressor) 50 mg PO BRKDIN [facility] Last Admin: 08/20/17 09:30 Dose: 50 mg Non-Formulary Medication (Linagliptin [Tradjenta]) 5 mg PO DAILY [facility] Last Admin: 08/20/17 09:31 Dose: Not Given Ondansetron HCl (Zofran Inj) 4 mg IVP Q6H PRN PRN Reason: Nausea/Vomiting Pantoprazole Sodium (Protonix Ec Tab) 20 mg PO ACB [facility] Last Admin: 08/20/17 09:30 Dose: 20 mg Polyethylene Glycol (Miralax) 17 gm PO DAILY [facility] Last Admin: 08/20/17 09:31 Dose: 17 gm Tamsulosin HCl (Flomax) 0.4 mg PO HS [facility] Last Admin: 08/19/17 22:26 Dose: 0.4 mg Trazodone HCl (Desyrel) 25 mg PO HS [facility] Last Admin: 08/19/17 22:27 Dose: 25 mg - Labs Labs: 08/20/17 10:00 08/20/17 10:00 PT 13.4 SECONDS (9.4-12.5) H 08/17/17 10:45 INR 1.21 (0.93-1.08) H 08/17/17 10:45 APTT 31.5 Seconds (25.1-36.5) 08/17/17 10:45 - Constitutional Appears: Well, Non-toxic, No Acute Distress - Extremities Exam Additional comments: Left lower extremity focused exam: Vasc: DP/PT pulses faintly palpable 1/4. Temperature gradient warm to cool. CFT < 4 sec to all digits; delayed but present. Mild non pitting pedal edema noted from perimalleolear region extending to digits. Derm: Circular ulceration measuring 3.5cm in diameter and approx 0.6cm in depth noted sub met 1 at site of prior metatarsal head resection. Wound base is mostly granular with some necrotic and fibrotic tissue noted at edges of wound. No malodor, no active drainage, no purulence, no fluctuance, no bogginess. Neuro: Protective sensation grossly diminished Ortho: No tenderness elicited upon palpation of ulceration - Neurological Exam Neurological Exam: Alert, Awake, Oriented x3 - Psychiatric Exam Psychiatric exam: Normal Affect, Normal Mood Assessment and Plan - Assessment and Plan (Free Text) Assessment: 62 y/o male with left foot non-healing plantar ulceration with radiologic marrow edema, consistent with osteomyelitis, who recently underwent successful revascularization with stent placement Plan: Pt seen and evaluated at bedside Discussed plan with attending Dr. Mercado Chart, labs and vitals reviewed- afebrile, WBC 6.5 L foot ulceration cleansed copiously with sterile saline and dressed with xeroform, ABD and DSD MRI of LLE shows marrow edema in 1st metatarsal, consistent with osteomyelitis Per ID, pt to receive 4-6 weeks of IV Rocephin via PICC line, in place to L arm Pt to be discharged Monday and will receive daily infusions of abx at home Pt to follow up in the wound care center weekly on Wednesdays with Dr. Mercado Podiatry will continue to follow patient while in house
--- NOTE | 2017-08-20 13:49 | CP.PCM.PN ---
<Jac Cancino - Last Filed: 08/20/17 16:00> Subjective - Date & Time of Evaluation Date of Evaluation: 08/20/17 Time of Evaluation: 08:15 - Subjective Subjective: Patient was seen and examined at bedside this morning, just finishing up his breakfast. Patient states he has no acute events overnight nor any current complaints. States that his foot pain has improved in comparison to yesterday. Denies headache, shortness of breath, chest pain, nausea, vomiting, diarrhea, dizziness, weakness. States he did have one bowel movement s/p colace over night. Objective - Vital Signs/Intake and Output Vital Signs (last 24 hours): Temp Pulse Resp BP Pulse Ox 98.1 F 62 20 152/80 H 97 08/20/17 07:30 08/20/17 07:30 08/20/17 07:30 08/20/17 09:30 08/20/17 07:30 Intake and Output: 08/20/17 08/20/17 06:59 18:59 Intake Total 1730 Output Total 1400 Balance 330 - Medications Medications: Current Medications Amlodipine Besylate (Norvasc) 5 mg PO DAILY [facility] Last Admin: 08/20/17 09:30 Dose: 5 mg Aspirin (Ecotrin) 81 mg PO HS [facility] Last Admin: 08/19/17 22:27 Dose: 81 mg Collagenase (Santyl) 0 gm TOP DAILY [facility] Last Admin: 08/20/17 09:32 Dose: 1 applic Docusate Sodium (Colace) 100 mg PO DAILY [facility] Last Admin: 08/20/17 09:30 Dose: 100 mg Escitalopram Oxalate (Lexapro) 20 mg PO DAILY [facility] Last Admin: 08/20/17 09:30 Dose: 20 mg Ceftaroline Fosamil 400 mg/ (Sodium Chloride) 100 mls @ 100 mls/hr IVPB Q12 [facility] PRN Reason: Protocol Stop: 08/24/17 10:01 Last Admin: 08/20/17 09:42 Dose: 100 mls/hr Sodium Chloride (Sodium Chloride 0.45%) 1,000 mls @ 80 mls/hr IV .[id number] [facility] Last Admin: 08/20/17 12:24 Dose: 80 mls/hr Insulin Detemir (Levemir) 10 unit SC ACBHS [facility] Last Admin: 08/20/17 09:31 Dose: 10 unit Insulin Human Regular (Humulin R Med) 0 units SC ACHS [facility] PRN Reason: Protocol Last Admin: 08/20/17 12:23 Dose: 3 units Levetiracetam (Keppra) 500 mg PO BID [facility] Last Admin: 08/20/17 09:30 Dose: 500 mg Lisinopril (Zestril) 20 mg PO DAILY [facility] Last Admin: 08/20/17 09:30 Dose: 20 mg Metoprolol Tartrate (Lopressor) 50 mg PO BRKDIN [facility] Last Admin: 08/20/17 09:30 Dose: 50 mg Non-Formulary Medication (Linagliptin [Tradjenta]) 5 mg PO DAILY [facility] Last Admin: 08/20/17 09:31 Dose: Not Given Ondansetron HCl (Zofran Inj) 4 mg IVP Q6H PRN PRN Reason: Nausea/Vomiting Pantoprazole Sodium (Protonix Ec Tab) 20 mg PO ACB [facility] Last Admin: 08/20/17 09:30 Dose: 20 mg Polyethylene Glycol (Miralax) 17 gm PO DAILY [facility] Last Admin: 08/20/17 09:31 Dose: 17 gm Tamsulosin HCl (Flomax) 0.4 mg PO HS [facility] Last Admin: 08/19/17 22:26 Dose: 0.4 mg Trazodone HCl (Desyrel) 25 mg PO HS [facility] Last Admin: 08/19/17 22:27 Dose: 25 mg - Labs Labs: 08/20/17 10:00 08/20/17 10:00 PT 13.4 SECONDS (9.4-12.5) H 08/17/17 10:45 INR 1.21 (0.93-1.08) H 08/17/17 10:45 APTT 31.5 Seconds (25.1-36.5) 08/17/17 10:45 - Constitutional Appears: Non-toxic, No Acute Distress - Head Exam Head Exam: ATRAUMATIC, NORMAL INSPECTION, NORMOCEPHALIC - Eye Exam Eye Exam: EOMI, Normal appearance. absent: Nystagmus, Scleral icterus - ENT Exam ENT Exam: Mucous Membranes Moist, Normal Exam - Neck Exam Neck Exam: Normal Inspection - Respiratory Exam Respiratory Exam: Clear to Ausculation Bilateral, NORMAL BREATHING PATTERN - Cardiovascular Exam Cardiovascular Exam: REGULAR RHYTHM, +S1, +S2 - GI/Abdominal Exam GI & Abdominal Exam: Soft, Normal Bowel Sounds - Extremities Exam Extremities Exam: Tenderness Additional comments: Left foot wound depth visible s/p surgery, wrapped up in bandage - Back Exam Back Exam: NORMAL INSPECTION - Neurological Exam Neurological Exam: Alert, Awake, Oriented x3 - Psychiatric Exam Psychiatric exam: Normal Affect, Normal Mood - Skin Skin Exam: Normal Color, Warm Assessment and Plan - Assessment and Plan (Free Text) Assessment: Mr. Calloway is a 62yo M with PMH DM2 (insulin dependent) w/ peripheral neuropathy, b/l CVA s/p subacute bacterial endocarditis w/ valve replacement and PVD s/p R hallux amputation who presents with purulent discharge from L hallux likely 2/2 cellulitis vs osteomyelitis Plan: 1. L hallux plantar ulcer likely 2/2 cellulitis vs osteomyelitis vs PVD ( insufficiency) vs diabetic neuropathy - blood and wound cultures show no growth - As per podiatry; with negative wound culture and successful vascular intervention patient may be discharged Monday on IV rocephin to be administered via PICC line as per ID - Continue with Teflaro - ISS - Glucose levels aren't approaching hypoglycemia as frequently; continue to monitor - Accucheck - Carb controlled diet 3. Hx CVA - Cardiology consulted based on carotid doppler findings, recs appreciated - continue ASA, Lisinopril, Metoprolol, Norvasc 4. History of Seizure on 02/14/2015 - Continue onKeppra, Lexapro and trazodone GI/DVT prophylaxis protonix/SCDs Patient was seen, examined and discussed with attending, Dr. Higgins <Ron Higgins B - Last Filed: 08/20/17 16:20> Objective - Vital Signs/Intake and Output Vital Signs (last 24 hours): Temp Pulse Resp BP Pulse Ox 98.1 F 62 20 152/80 H 97 08/20/17 07:30 08/20/17 07:30 08/20/17 07:30 08/20/17 09:30 08/20/17 07:30 Intake and Output: 08/20/17 08/20/17 06:59 18:59 Intake Total 1730 960 Output Total 1400 600 Balance 330 360 - Medications Medications: Current Medications Amlodipine Besylate (Norvasc) 5 mg PO DAILY [facility] Last Admin: 08/20/17 09:30 Dose: 5 mg Aspirin (Ecotrin) 81 mg PO HS [facility] Last Admin: 08/19/17 22:27 Dose: 81 mg Collagenase (Santyl) 0 gm TOP DAILY [facility] Last Admin: 08/20/17 09:32 Dose: 1 applic Docusate Sodium (Colace) 100 mg PO DAILY [facility] Last Admin: 08/20/17 09:30 Dose: 100 mg Escitalopram Oxalate (Lexapro) 20 mg PO DAILY [facility] Last Admin: 08/20/17 09:30 Dose: 20 mg Ceftaroline Fosamil 400 mg/ (Sodium Chloride) 100 mls @ 100 mls/hr IVPB Q12 [facility] PRN Reason: Protocol Stop: 08/24/17 10:01 Last Admin: 08/20/17 09:42 Dose: 100 mls/hr Sodium Chloride (Sodium Chloride 0.45%) 1,000 mls @ 80 mls/hr IV .[id number] [facility] Last Admin: 08/20/17 12:24 Dose: 80 mls/hr Insulin Detemir (Levemir) 10 unit SC [facility] Last Admin: 08/20/17 09:31 Dose: 10 unit Insulin Human Regular (Humulin R Med) 0 units SC [facility] PRN Reason: Protocol Last Admin: 08/20/17 12:23 Dose: 3 units Levetiracetam (Keppra) 500 mg PO BID [facility] Last Admin: 08/20/17 09:30 Dose: 500 mg Lisinopril (Zestril) 20 mg PO DAILY [facility] Last Admin: 08/20/17 09:30 Dose: 20 mg Metoprolol Tartrate (Lopressor) 50 mg PO BRKDIN [facility] Last Admin: 08/20/17 09:30 Dose: 50 mg Non-Formulary Medication (Linagliptin [Tradjenta]) 5 mg PO DAILY [facility] Last Admin: 08/20/17 09:31 Dose: Not Given Ondansetron HCl (Zofran Inj) 4 mg IVP Q6H PRN PRN Reason: Nausea/Vomiting Pantoprazole Sodium (Protonix Ec Tab) 20 mg PO ACB [facility] Last Admin: 08/20/17 09:30 Dose: 20 mg Polyethylene Glycol (Miralax) 17 gm PO DAILY [facility] Last Admin: 08/20/17 09:31 Dose: 17 gm Tamsulosin HCl (Flomax) 0.4 mg PO HS [facility] Last Admin: 08/19/17 22:26 Dose: 0.4 mg Trazodone HCl (Desyrel) 25 mg PO HS [facility] Last Admin: 08/19/17 22:27 Dose: 25 mg - Labs Labs: 08/20/17 10:00 08/20/17 10:00 PT 13.4 SECONDS (9.4-12.5) H 08/17/17 10:45 INR 1.21 (0.93-1.08) H 08/17/17 10:45 APTT 31.5 Seconds (25.1-36.5) 08/17/17 10:45 Attending/Attestation - Attestation I have personally seen and examined this patient.: Yes I have fully participated in the care of the patient.: Yes I have reviewed all pertinent clinical information, including history, physical exam and plan: Yes Notes (Text): I have seen and examined the patient at bedside. Agree with the above note with the following additions/ exceptions: Briefly this is 62year old male with history of alcohol abuse, IDDM,HTN, peripheral neuropathy, CVA, s/p subacute bacterial endocarditis w/ valve replacement and PVD s/p R hallux amputation who presents with non healing left 1st metastarsal osteomyelitis. Patient underwent successful angioplasty for PAD . Plan is to start rocephin upon discharge and to continue that for 4-6 weeks. He will also need weekly labs.Will discuss with case finishing machine adjuster on Monday. Continue teflaro for now. Patient already has picc line in place. Upon discharge patient will follow up with Dr Gutierrez. Dr Ron Higgins
--- NOTE | 2017-08-20 17:09 | CP.PCM.PN ---
Subjective - Date & Time of Evaluation Date of Evaluation: 08/20/17 Time of Evaluation: 11:00 - Subjective Subjective: Comfortable, no fevers. Objective - Vital Signs/Intake and Output Vital Signs (last 24 hours): Temp Pulse Resp BP Pulse Ox 98.1 F 62 20 152/80 H 97 08/20/17 07:30 08/20/17 07:30 08/20/17 07:30 08/20/17 07:30 08/20/17 07:30 Intake and Output: 08/20/17 08/20/17 06:59 18:59 Intake Total 1730 Output Total 1400 Balance 330 - Medications Medications: Current Medications Amlodipine Besylate (Norvasc) 5 mg PO DAILY [facility] Last Admin: 08/20/17 09:30 Dose: 5 mg Aspirin (Ecotrin) 81 mg PO HS [facility] Last Admin: 08/19/17 22:27 Dose: 81 mg Collagenase (Santyl) 0 gm TOP DAILY [facility] Last Admin: 08/20/17 09:32 Dose: 1 applic Docusate Sodium (Colace) 100 mg PO DAILY [facility] Last Admin: 08/20/17 09:30 Dose: 100 mg Escitalopram Oxalate (Lexapro) 20 mg PO DAILY [facility] Last Admin: 08/20/17 09:30 Dose: 20 mg Ceftaroline Fosamil 400 mg/ (Sodium Chloride) 100 mls @ 100 mls/hr IVPB Q12 [facility] PRN Reason: Protocol Stop: 08/24/17 10:01 Last Admin: 08/20/17 09:42 Dose: 100 mls/hr Sodium Chloride (Sodium Chloride 0.45%) 1,000 mls @ 80 mls/hr IV .[id number] [facility] Last Admin: 08/19/17 13:58 Dose: 80 mls/hr Insulin Detemir (Levemir) 10 unit SC [facility] Last Admin: 08/20/17 09:31 Dose: 10 unit Insulin Human Regular (Humulin R Med) 0 units SC [facility] PRN Reason: Protocol Last Admin: 08/20/17 09:30 Dose: 1 units Levetiracetam (Keppra) 500 mg PO BID [facility] Last Admin: 08/20/17 09:30 Dose: 500 mg Lisinopril (Zestril) 20 mg PO DAILY [facility] Last Admin: 08/20/17 09:30 Dose: 20 mg Metoprolol Tartrate (Lopressor) 50 mg PO BRKDIN [facility] Last Admin: 08/20/17 09:30 Dose: 50 mg Non-Formulary Medication (Linagliptin [Tradjenta]) 5 mg PO DAILY [facility] Last Admin: 08/20/17 09:31 Dose: Not Given Ondansetron HCl (Zofran Inj) 4 mg IVP Q6H PRN PRN Reason: Nausea/Vomiting Pantoprazole Sodium (Protonix Ec Tab) 20 mg PO ACB [facility] Last Admin: 08/20/17 09:30 Dose: 20 mg Polyethylene Glycol (Miralax) 17 gm PO DAILY [facility] Last Admin: 08/20/17 09:31 Dose: 17 gm Tamsulosin HCl (Flomax) 0.4 mg PO HS [facility] Last Admin: 08/19/17 22:26 Dose: 0.4 mg Trazodone HCl (Desyrel) 25 mg PO HS [facility] Last Admin: 08/19/17 22:27 Dose: 25 mg - Labs Labs: 08/20/17 10:00 08/19/17 07:00 PT 13.4 SECONDS (9.4-12.5) H 08/17/17 10:45 INR 1.21 (0.93-1.08) H 08/17/17 10:45 APTT 31.5 Seconds (25.1-36.5) 08/17/17 10:45 - Constitutional Appears: Non-toxic - Head Exam Head Exam: NORMAL INSPECTION - ENT Exam ENT Exam: Mucous Membranes Moist - Neck Exam Neck Exam: absent: Meningismus - Respiratory Exam Respiratory Exam: Decreased Breath Sounds - Cardiovascular Exam Cardiovascular Exam: +S1, +S2 - GI/Abdominal Exam GI & Abdominal Exam: Soft. absent: Tenderness Assessment and Plan - Assessment and Plan (Free Text) Plan: Assessment left 1st metatarsal osteomyelitis with abscess, S/P angioplasty for peripheral arterial disease POD #2 history sepsis due to left foot infection/ cellulitis with MSSA and Strep anginosus S/P I and D and metatarsal resection history of MRSA bacteremia with infection of the right lower extremity with probable osteomyelitis S/P tenotomy History of Corynebacterium, Grp G strep bacteremia and mitral valve endocarditis S/P valve surgery and replacement ESBL Klebsiella in the urine DM HTN history of alcohol abuse Plan continue Teflaro day 3; reviewed MRI - discussed with Dr. Hurtado - should get 4- 6 weeks of antibiotics with weekly ESR, CRP, CBC, CMP and can be switched to Ceftriaxone based on previous cultures will continue to monitor clinically
[2017-08-21 04:21] VITALS: PULSE 59
[2017-08-21] MEDS: Sodium Chloride 0.45% 1,000 ML IV SCH (05:44)
[2017-08-21 07:53] LABS: BASO # 0.03 K/mm3 (0.0-2.0); BASO % 0.4 % (0.0-3.0); EOS # 0.4 (0.0-0.7); GRAN # 4.38 (1.4-6.5); GRAN % 63.7 % (50.0-68.0); HEMATOCRIT 30.3 % (42.0-52.0); LYMPH # 1.2 (1.2-3.4); LYMPH % 16.7 % (22.0-35.0); MEAN CELL VOLUME 86.3 fl (80.0-105.0); MEAN CORPUSCULAR HEMOGLOBIN 27.6 pg (25.0-35.0); MONO # 0.9 (0.1-0.6); MONO % 13.2 % (1.0-6.0); RED CELL DISTRIBUTION WIDTH 13.3 % (11.5-14.5); WHITE BLOOD COUNT 6.9 10^3/ul (4.5-11.0)
[2017-08-21] MEDS: Insulin Reg-MEDIUM-Coverage SC SCH ×2 (07:53→14:29)
--- NOTE | 2017-08-21 08:02 | CON ---
DATE: 08/18/2017 ADDENDUM The history is reviewed and confirmed with the patient's , the patient is aphasic and cannot give history. The history in brief is that he had a right foot infection 2 years ago and Staphylococcus aureus septicemia resulting in endocarditis. He subsequently suffer CVA x3 due to septic emboli. He also required a mitral valve replacement for his endocarditis. Currently, he has a nonhealing left foot removal of metatarsal head and associated cellulitis. On admission, he had purulent material coming down from the bottom of the foot at the base of the fist toe and he had no palpable pulse on that side and palpable popliteal pulse on the right side. He has palpable dorsalis pedis pulse. The case was discussed with his and his daughter and an angiogram and angioplasty was planned for today. Eneida Pineda MD
[2017-08-21 08:48] VITALS: BP 148/76; TEMP 97.9; O2SAT 98
--- NOTE | 2017-08-21 09:25 | CP.PCM.PN ---
Subjective - Date & Time of Evaluation Date of Evaluation: 08/21/17 Time of Evaluation: 08:15 - Subjective Subjective: 62 y/o male seen at bedside this morning with attending Dr. Mercado for left plantar foot ulceration. Pt states he is feeling fine and ready to go home. Pt denies any acute events overnight. Pt denies pain in the left foot. Pt denies F/ C/N/V/CP/SOB. Objective - Vital Signs/Intake and Output Vital Signs (last 24 hours): Temp Pulse Resp BP Pulse Ox 97.9 F 59 L 20 148/76 98 08/21/17 08:48 08/21/17 08:48 08/21/17 08:48 08/21/17 08:48 08/21/17 08:48 Intake and Output: 08/21/17 08/21/17 06:59 18:59 Intake Total 2160 Output Total 1450 Balance 710 - Medications Medications: Current Medications Amlodipine Besylate (Norvasc) 5 mg PO DAILY [facility] Last Admin: 08/20/17 09:30 Dose: 5 mg Aspirin (Ecotrin) 81 mg PO HS [facility] Last Admin: 08/20/17 21:40 Dose: 81 mg Collagenase (Santyl) 0 gm TOP DAILY [facility] Last Admin: 08/20/17 09:32 Dose: 1 applic Docusate Sodium (Colace) 100 mg PO DAILY [facility] Last Admin: 08/20/17 09:30 Dose: 100 mg Escitalopram Oxalate (Lexapro) 20 mg PO DAILY [facility] Last Admin: 08/20/17 09:30 Dose: 20 mg Ceftaroline Fosamil 400 mg/ (Sodium Chloride) 100 mls @ 100 mls/hr IVPB Q12 [facility] PRN Reason: Protocol Stop: 08/24/17 10:01 Last Admin: 08/20/17 21:40 Dose: 100 mls/hr Sodium Chloride (Sodium Chloride 0.45%) 1,000 mls @ 80 mls/hr IV .[id number] [facility] Last Admin: 08/21/17 05:44 Dose: 80 mls/hr Insulin Detem[facility] (Le[facility]) [facility] Last Admin: 08/20/17 23:07 Dose: 10 unit Insulin Human Regular (Humulin R Med) 0 units SC [facility] PRN Reason: Protocol Last Admin: 08/20/17 22:39 Dose: Not Given Levetiracetam (Keppra) 500 mg PO BID [facility] Last Admin: 08/20/17 17:12 Dose: 500 mg Lisinopril (Zestril) 20 mg PO DAILY [facility] Last Admin: 08/20/17 09:30 Dose: 20 mg Metoprolol Tartrate (Lopressor) 50 mg PO BRKDIN [facility] Last Admin: 08/20/17 17:12 Dose: 50 mg Non-Formulary Medication (Linagliptin [Tradjenta]) 5 mg PO DAILY [facility] Last Admin: 08/20/17 09:31 Dose: Not Given Ondansetron HCl (Zofran Inj) 4 mg IVP Q6H PRN PRN Reason: Nausea/Vomiting Pantoprazole Sodium (Protonix Ec Tab) 20 mg PO ACB [facility] Last Admin: 08/20/17 09:30 Dose: 20 mg Polyethylene Glycol (Miralax) 17 gm PO DAILY [facility] Last Admin: 08/20/17 09:31 Dose: 17 gm Tamsulosin HCl (Flomax) 0.4 mg PO HS [facility] Last Admin: 08/20/17 21:40 Dose: 0.4 mg Trazodone HCl (Desyrel) 25 mg PO HS [facility] Last Admin: 08/20/17 21:40 Dose: 25 mg - Labs Labs: 08/21/17 07:46 08/20/17 10:00 PT 13.4 SECONDS (9.4-12.5) H 08/17/17 10:45 INR 1.21 (0.93-1.08) H 08/17/17 10:45 APTT 31.5 Seconds (25.1-36.5) 08/17/17 10:45 - Constitutional Appears: Well, Non-toxic, No Acute Distress - Extremities Exam Additional comments: Left lower extremity focused exam: Vasc: DP/PT pulses faintly palpable 1/4. Temperature gradient warm to cool. CFT < 4 sec to all digits; delayed but present. Mild non pitting pedal edema noted from perimalleolear region extending to digits. Derm: Circular ulceration measuring 3.5cm in diameter and approx 0.6cm in depth noted sub met 1 at site of prior metatarsal head resection. Wound base is mostly granular with some necrotic and fibrotic tissue noted at edges of wound. No tunneling or undermining noted at this time. No malodor, no active drainage, no purulence, no fluctuance, no bogginess. Neuro: Protective sensation grossly diminished Ortho: No tenderness elicited upon palpation of ulceration. L hallux contracted dorsolaterally towards 2nd digit. - Neurological Exam Neurological Exam: Alert, Awake, Oriented x3 - Psychiatric Exam Psychiatric exam: Normal Affect, Normal Mood Assessment and Plan - Assessment and Plan (Free Text) Assessment: 62 y/o male with left foot non-healing plantar ulceration with radiologic marrow edema, consistent with osteomyelitis, who recently underwent successful revascularization with stent placement Plan: Pt seen and evaluated at bedside with attending Dr. Mercado Chart, labs and vitals reviewed- afebrile, WBC 6.9 L foot ulceration cleansed copiously with sterile saline and dressed with xeroform, ABD and DSD MRI of LLE shows marrow edema in 1st metatarsal, consistent with osteomyelitis Per ID, pt to receive 4-6 weeks of IV Rocephin via PICC line, in place to L arm Pt to be discharged later today and will receive daily infusions of abx at home Pt will ambulate in Aircast shoe, which he already has had dispensed to him Pt to follow up in the wound care center weekly next Monday (08/30) with Dr. Mercado
[2017-08-21] MEDS: POLYETHYLENE GLYCOL 3350 17 GM/Dose PACKET PO SCH (10:49)
[2017-08-21] MEDS: Collagenase 250 Units/gm Ointment(30 gm) TOP SCH (10:50)
[2017-08-21] MEDS: Pantoprazole 20 mg EC Tab PO SCH (10:52)
[2017-08-21] MEDS: Insulin Detemir 100 units/ml Vial (Levemir) SC SCH (10:52)
[2017-08-21] MEDS: Non Formulary Medication (Linagliptin [Tradjenta] 5 MG) PO SCH (10:52)
[2017-08-21] MEDS ORDERED: cefTRIAXone 1 gm 1 GM/100 ML BAG IVPB STA (12:39)
--- NOTE | 2017-08-21 14:56 | CP.PCM.DIS ---
<Malick,Freddy - Last Filed: 08/21/17 14:48> Provider - Provider Date of Admission: 08/16/17 12:46 Attending physician: Nia Wilde MD Primary care physician: Hayden Gutierrez MD Consults: Vascular Surgery: Dr. Pineda Podiatry: Dr. Mercado ID: Dr. Chiu IR: Dr. Shay Time Spent in preparation of Discharge (in minutes): 45 Hospital Course - Lab Results Lab Results: Micro Results 08/17/17 09:50 Foot - Left Gram Stain - Final 08/17/17 09:50 Foot - Left Wound Culture - Final No growth. Most Recent Lab Values WBC 6.9 10^3/ul (4.5-11.0) 08/21/17 07:46 RBC 3.51 10^6/uL (3.5-6.1) 08/21/17 07:46 Hgb 9.7 g/dL (14.0-18.0) L 08/21/17 07:46 Hct 30.3 % (42.0-52.0) L 08/21/17 07:46 MCV 86.3 fl (80.0-105.0) 08/21/17 07:46 MCH 27.6 pg (25.0-35.0) 08/21/17 07:46 MCHC 32.0 g/dl (31.0-37.0) 08/21/17 07:46 RDW 13.3 % (11.5-14.5) 08/21/17 07:46 Plt Count 159 10^3/uL (120.0-450.0) 08/21/17 07:46 MPV 11.0 fl (7.0-11.0) 08/21/17 07:46 Gran % 63.7 % (50.0-68.0) 08/21/17 07:46 Lymph % (Auto) 16.7 % (22.0-35.0) L 08/21/17 07:46 [place] % (Auto) 13.2 % (1.0-6.0) H 08/21/17 07:46 Eos % (Auto) 6.0 % (1.5-5.0) H 08/21/17 07:46 Baso % (Auto) 0.4 % (0.0-3.0) 08/21/17 07:46 Gran # 4.38 (1.4-6.5) 08/21/17 07:46 Lymph # 1.2 (1.2-3.4) 08/21/17 07:46 [place] # 0.9 (0.1-0.6) H 08/21/17 07:46 Eos # 0.4 (0.0-0.7) 08/21/17 07:46 Baso # 0.03 K/mm3 (0.0-2.0) 08/21/17 07:46 ESR 78 mm/hr (0.00-15.0) H 08/17/17 08:00 PT 13.4 SECONDS (9.4-12.5) H 08/17/17 10:45 INR 1.21 (0.93-1.08) H 08/17/17 10:45 APTT 31.5 Seconds (25.1-36.5) 08/17/17 10:45 Sodium 140 mmol/L (132-148) 08/20/17 10:00 Potassium 4.7 mmol/L (3.6-5.0) 08/20/17 10:00 Chloride 102 mmol/L (98-107) 08/20/17 10:00 Carbon Dioxide 29 mmol/L (21-33) 08/20/17 10:00 Anion Gap 14 (10-20) 08/20/17 10:00 BUN 13 mg/dL (7-21) 08/20/17 10:00 Creatinine 1.1 mg/dL (0.8-1.5) 08/20/17 10:00 Est GFR ( Amer) > 60 08/20/17 10:00 Est GFR (Non-Af Amer) > 60 08/20/17 10:00 POC Glucose (mg/dL) 169 mg/dL (65-110) H 08/20/17 15:33 Random Glucose 200 mg/dL (70-110) H 08/20/17 10:00 Calcium 9.3 mg/dL (8.4-10.5) 08/20/17 10:00 Phosphorus 3.8 mg/dL (2.5-4.5) 08/16/17 12:21 Magnesium 1.6 mg/dL (1.7-2.2) L 08/16/17 12:21 Total Bilirubin 0.8 mg/dL (0.2-1.3) 08/20/17 10:00 AST 19 U/L (17-59) 08/20/17 10:00 ALT 26 U/L (7-56) 08/20/17 10:00 Alkaline Phosphatase 94 U/L (38-126) 08/20/17 10:00 C-React Prot High Sens 14.60 mg/L (1.00-3.00) H 08/17/17 08:00 Total Protein 7.1 g/dL (5.8-8.3) 08/20/17 10:00 Albumin 3.6 g/dL (3.0-4.8) 08/20/17 10:00 Globulin 3.5 gm/dL 08/20/17 10:00 Albumin/Globulin Ratio 1.0 (1.1-1.8) L 08/20/17 10:00 - Hospital Course Hospital Course: 62 M with a PMHx of MRSA bacteremia with infection of the right lower extremity with probable osteomyelitis S/P tenotomy, history of Corynebacterium, Grp G strep bacteremia and mitral valve endocarditis S/P valve surgery and replacement with associated CVAs, ESBL Klebsiella in the urine, DM, HTN, history of alcohol abuse is admitted 2/2 worsening of his left foot 1st metatarsal, purulent discharge from [facility] secondary to osteomyelitis. . As per pt, infection started in April and his credentialing manager and Dr. Mercado has been managing it. Pt states three weeks ago he had the area debrided and upon admission he had to have part of his tendon removed. Patient states he had a similar infection in his right first toe which caused him to get endocarditits, three CVAs, and ultimately had the right toe amputated. MRI foot showed marrow edema in the 1st metatarsal suspicious for osteomyelitis. There is also fluid collection near the tip of the amputated metatarsal suspicious for abscess.Infectious Diseases consulted, Dr. Chiu, IV Teflaro started as pt already had PICC in place. B/l LE areterial US dopplers showed 1. Critical stenosis in the distal left SFA 2. 50-99 percent stenosis in the left profunda femoral artery origin. 3. Borderline stenosis in the proximal left SFA. 4. The tibial arteries are not adequately visualized.Will follow up with Podiatry regarding plan. Vascular Suurgery Dr. Pineda was consulted. Successful Bilateral Common Iliac stenting, Arthrectomy and baloon angioplasty left anterior tibial, and left Superficial femoral performed. Blood and foot cultures show no growth after 24hrs. Pt is to be DC with IV rocephin continue that for 4-6 weeks. He will also need weekly labs. Upon discharge patient will follow up with Dr Gutierrez. Pt will ambulate in Aircast shoe. Pt to follow up in the wound care center weekly next Monday (08/30) with Dr. Mercado. Discharge Exam - Head Exam Head Exam: NORMAL INSPECTION - Eye Exam Eye Exam: EOMI, Normal appearance, PERRL Pupil Exam: NORMAL ACCOMODATION, PERRL - ENT Exam ENT Exam: Mucous Membranes Moist - Respiratory Exam Respiratory Exam: Clear to PA & Lateral, NORMAL BREATHING PATTERN, UNREMARKABLE - Cardiovascular Exam Cardiovascular Exam: RRR, +S1, +S2 - GI/Abdominal Exam GI & Abdominal Exam: Normal Bowel Sounds, Soft. absent: Tenderness - Extremities Exam Extremities exam: pedal pulses present - Neurological Exam Neurological exam: Alert, CN II-XII Intact, Normal Gait, Oriented x3, Reflexes Normal - Psychiatric Exam Psychiatric exam: Normal Affect, Normal Mood - Skin Skin Exam: Dry, Intact, Normal Color, Warm Discharge Plan - Discharge Medications Prescriptions: cefTRIAXone 1 gm [Rocephin 1 gram IVPB] 1 gm IVPB DAILY 42 Days bag Collagenase [Santyl] 30 applic TOP DAILY #2 tube - Follow Up Plan Condition: FAIR Disposition: DISCHARGED TO HOME CARE Instructions: Pneumococcal Vaccine for Adults (DC), Cellulitis (ED), Diabetes Mellitus Type 1 in Adults (DC), Peripherally Inserted Central Catheters and Midline Catheters (DC), Influenza Vaccine (DC), Fall Prevention (DC) Additional Instructions: 1. Follow up with PMD Dr. gutierrez in 1 week. 2. Continue IV rocephin daily. weekly esr, crp,cbc,cmp. to be addressed by PMD. 3. PT at home. 4. Wound care. Follow up with DR. Mercado in 08/30/17 at 11 am. walk with air cast boot. Referrals: Hayden Gutierrez MD [Primary Care Provider] - Destiney Mercado DPM [Staff Provider] - Alec Mejia MD [Staff Provider] - Braeden Shay MD [Staff Provider] - <Nia Wilde - Last Filed: 08/22/17 13:47> Provider - Provider Date of Admission: 08/16/17 12:46 Attending physician: Nia Wilde MD Primary care physician: Hayden Gutierrez MD Hospital Course - Lab Results Lab Results: Micro Results 08/17/17 09:50 Foot - Left Gram Stain - Final 08/17/17 09:50 Foot - Left Wound Culture - Final No growth. Most Recent Lab Values WBC 6.9 10^3/ul (4.5-11.0) 08/21/17 07:46 RBC 3.51 10^6/uL (3.5-6.1) 08/21/17 07:46 Hgb 9.7 g/dL (14.0-18.0) L 08/21/17 07:46 Hct 30.3 % (42.0-52.0) L 08/21/17 07:46 MCV 86.3 fl (80.0-105.0) 08/21/17 07:46 MCH 27.6 pg (25.0-35.0) 08/21/17 07:46 MCHC 32.0 g/dl (31.0-37.0) 08/21/17 07:46 RDW 13.3 % (11.5-14.5) 08/21/17 07:46 Plt Count 159 10^3/uL (120.0-450.0) 08/21/17 07:46 MPV 11.0 fl (7.0-11.0) 08/21/17 07:46 Gran % 63.7 % (50.0-68.0) 08/21/17 07:46 Lymph % (Auto) 16.7 % (22.0-35.0) L 08/21/17 07:46 [place] % (Auto) 13.2 % (1.0-6.0) H 08/21/17 07:46 Eos % (Auto) 6.0 % (1.5-5.0) H 08/21/17 07:46 Baso % (Auto) 0.4 % (0.0-3.0) 08/21/17 07:46 Gran # 4.38 (1.4-6.5) 08/21/17 07:46 Lymph # 1.2 (1.2-3.4) 08/21/17 07:46 [place] # 0.9 (0.1-0.6) H 08/21/17 07:46 Eos # 0.4 (0.0-0.7) 08/21/17 07:46 Baso # 0.03 K/mm3 (0.0-2.0) 08/21/17 07:46 ESR 78 mm/hr (0.00-15.0) H 08/17/17 08:00 PT 13.4 SECONDS (9.4-12.5) H 08/17/17 10:45 INR 1.21 (0.93-1.08) H 08/17/17 10:45 APTT 31.5 Seconds (25.1-36.5) 08/17/17 10:45 Sodium 140 mmol/L (132-148) 08/20/17 10:00 Potassium 4.7 mmol/L (3.6-5.0) 08/20/17 10:00 Chloride 102 mmol/L (98-107) 08/20/17 10:00 Carbon Dioxide 29 mmol/L (21-33) 08/20/17 10:00 Anion Gap 14 (10-20) 08/20/17 10:00 BUN 13 mg/dL (7-21) 08/20/17 10:00 Creatinine 1.1 mg/dL (0.8-1.5) 08/20/17 10:00 Est GFR ( Amer) > 60 08/20/17 10:00 Est GFR (Non-Af Amer) > 60 08/20/17 10:00 POC Glucose (mg/dL) 176 mg/dL (65-110) H 08/21/17 11:23 Random Glucose 200 mg/dL (70-110) H 08/20/17 10:00 Calcium 9.3 mg/dL (8.4-10.5) 08/20/17 10:00 Phosphorus 3.8 mg/dL (2.5-4.5) 08/16/17 12:21 Magnesium 1.6 mg/dL (1.7-2.2) L 08/16/17 12:21 Total Bilirubin 0.8 mg/dL (0.2-1.3) 08/20/17 10:00 AST 19 U/L (17-59) 08/20/17 10:00 ALT 26 U/L (7-56) 08/20/17 10:00 Alkaline Phosphatase 94 U/L (38-126) 08/20/17 10:00 C-React Prot High Sens 14.60 mg/L (1.00-3.00) H 08/17/17 08:00 Total Protein 7.1 g/dL (5.8-8.3) 08/20/17 10:00 Albumin 3.6 g/dL (3.0-4.8) 08/20/17 10:00 Globulin 3.5 gm/dL 08/20/17 10:00 Albumin/Globulin Ratio 1.0 (1.1-1.8) L 08/20/17 10:00 Attending/Attestation - Attestation I have personally seen and examined this patient.: Yes I have fully participated in the care of the patient.: Yes I have reviewed all pertinent clinical information, including history, physical exam and plan: Yes Notes (Text): 08/22/17 13:42 Attending note; Patient seen and examined with resident. Patient is a 62 year old male with history of alcohol abuse, IDDM,HTN, peripheral neuropathy, CVA, s/p subacute bacterial endocarditis w/ valve replacement and PVD s/p R hallux amputation who presents with non healing left 1st metastarsal osteomyelitis. Patient underwent successful angioplasty for PAD . Needs IV rocephin for 4-6 weeks. Case discussed with community case manager. Outpatient IV antibiotics arranged. The patient will follow-up with PMD upon discharge. diagnosis; Osteomyelitis Angioplasty PAD diabetes Hypertension
[2017-08-22] MEDS ORDERED: Silver Sulfadiazine 1% Cream (25 gm) TP SCH (10:00)
== END 2017-08-21 15:53 | disposition home health service (06) | DRG 271 ==
LOC: ED 11:31 → ERH 12:46 → 5RSO 14:40 → 2RSO 08-18 11:12 → 5RSO 08-18 17:48
PROVIDERS: ADMIT Internal Medicine; ATTEND Internal Medicine
PROC: 02HV33Z Insertion of Infusion Device into Superior Vena Cava, Percutaneous Approach (ICD-10-PCS; 2017-08-17)
PROC: B548ZZA Ultrasonography of Superior Vena Cava, Guidance (ICD-10-PCS; 2017-08-17)
PROC: 04CL3ZZ Extirpation of Matter from Left Femoral Artery, Percutaneous Approach (ICD-10-PCS; principal; 2017-08-18)
PROC: 047L34Z Dilation of Left Femoral Artery with Drug-eluting Intraluminal Device, Percutaneous Approach (ICD-10-PCS; 2017-08-18)
PROC: 047C3DZ Dilation of Right Common Iliac Artery with Intraluminal Device, Percutaneous Approach (ICD-10-PCS; 2017-08-18)
PROC: 047D3DZ Dilation of Left Common Iliac Artery with Intraluminal Device, Percutaneous Approach (ICD-10-PCS; 2017-08-18)
PROC: 047Q3ZZ Dilation of Left Anterior Tibial Artery, Percutaneous Approach (ICD-10-PCS; 2017-08-18)
PROC: 047U3ZZ Dilation of Left Peroneal Artery, Percutaneous Approach (ICD-10-PCS; 2017-08-18)
PROC: B41DYZZ Fluoroscopy of Aorta and Bilateral Lower Extremity Arteries using Other Contrast (ICD-10-PCS; 2017-08-18)
DX: E11.51 Type 2 diabetes mellitus with diabetic peripheral angiopathy without gangrene (principal); L03.116 Cellulitis of left lower limb; E11.621 Type 2 diabetes mellitus with foot ulcer; L97.529 Non-pressure chronic ulcer of other part of left foot with unspecified severity; E11.42 Type 2 diabetes mellitus with diabetic polyneuropathy; I70.1 Atherosclerosis of renal artery; M86.9 Osteomyelitis, unspecified; E11.69 Type 2 diabetes mellitus with other specified complication; R47.01 Aphasia; I70.245 Atherosclerosis of native arteries of left leg with ulceration of other part of foot; K21.9 Gastro-esophageal reflux disease without esophagitis; I10 Essential (primary) hypertension; R56.9 Unspecified convulsions; Z79.4 Long term (current) use of insulin; Z86.73 Personal history of transient ischemic attack (TIA), and cerebral infarction without residual deficits; Z89.411 Acquired absence of right great toe; Z79.82 Long term (current) use of aspirin; Z79.899 Other long term (current) drug therapy; Z86.14 Personal history of Methicillin resistant Staphylococcus aureus infection; Z90.49 Acquired absence of other specified parts of digestive tract; Z95.2 Presence of prosthetic heart valve; Z87.891 Personal history of nicotine dependence

== ENCOUNTER 2018-10-12 09:43 | Outpatient (CLI) | payer MEDICARE, OTHER | END 2018-10-12 09:44 | disposition home or self-care (01) | LOC: RAD 09:43 ==